=== PATIENT | male | born 1940 | race African-American/Black ===

== ENCOUNTER 2017-05-17 21:22 | Inpatient (IN) | payer MEDICARE, OTHER ==
[~2017-05-17] VITALS: Ht 185.4 cm; Wt 81.6 kg
[2017-05-17] MEDS ORDERED: Haloperidol 5mg/ml Inj ONE (21:34)
--- NOTE | 2017-05-17 21:38 | Emergency Room Report ---
History of Present Illness General Chief Complaint: General Complaint Source: Patient Present Illness HPI 76-year-old male, history of dementia, coming from group home after patient walked outside, try to leave the group home, and fell. History is obtained by EMS as patient is confused, has dementia baseline. States that he fell, there was reportedly normal LOC. Patient has been extremely agitated, trying to get out of the stretcher. Not cooperative Allergies: Coded Allergies: No Known Allergies (Unverified , 05/17/17) Patient History Past Medical History: see triage record Past Surgical History: unable to obtain Pertinent Family History: unable to obtain Reviewed Nursing Documentation: PMH: Agreed, PSxH: Agreed Review of Systems All Other Systems: limited - dementia/not cooperative Physical Exam Vital Signs Date Time Temp Pulse Resp B/P (MAP) Pulse Ox O2 Delivery O2 Flow Rate FiO2 05/17/17 21:13 98 22 19/110 98 Room Air Sp02 EP Interpretation: reviewed, normal General Appearance: other - elderly male, agitated, yelling "[facility]" several times Head: normocephalic, atraumatic Eyes: bilateral eye normal inspection, bilateral eye PERRL, bilateral eye EOMI ENT: normal ENT inspection, normal pharynx, normal voice, moist mucus membranes Neck: normal inspection, full range of motion, supple Respiratory: normal inspection, lungs clear, normal breath sounds, no respiratory distress, no retraction, no wheezing, chest symmetrical Cardiovascular #1: normal inspection, regular rate, rhythm, normal capillary refill Cardiovascular #2: 2+ radial (R), 2+ radial (L) Gastrointestinal: normal inspection, non tender, soft, non-distended, no guarding Musculoskeletal: other - full range of motion all ext Neurologic: other - agitated, good muscle tone, not oriented, saying same phrases, not ff commands Psychiatric: other - dementia, agitated Skin: normal inspection, normal color, no rash, warm/dry, well hydrated, normal turgor Medical Decision Making Diagnostic Impression: Primary Impression: Unsteady gait Additional Impression: Altered mental status ER Course 76-year-old male, altered, and fell, not able to ambulate on his own DDX: Likely advanced dementia, not safe to ambulate on his own Rule out hypovolemic/dehydration vs. cardiac vs. metabolic (hypoglycemia, hypoxia) Infectious, UTI/pneumonia Patient fell, rule out intracranial bleed Plan: bgm, cbc, bmp, ekg, cxr CT head ER course: Patient extremely agitated, trying to get out of the stretcher, danger to himself, sedated with Haldol CT head appears neg Disposition: Patient requires admission D/W hospitalist Dr Alexander Please note that this Emergency Department Report was dictated using [employer] instructor technology software, occasionally this can lead to erroneous entry secondary to interpretation by the dictation equipment EKG Diagnostic Results EP Interpretation: Yes Rate: normal Rhythm: NSR ST Segments: No acute changes, +PACS ASA given to patient: No Rhythm Strip EP Interpretation: Yes Rate: 80 Rhythm: NSR, no PVCs, no ectopy Chest X-ray CXR: Ordered: Yes 1 view Indication: Altered mental status EP interpretation: Yes Interpretation: cardiomegaly w/ mild congestion Impression: cardiomegaly Electronically signed by Joshua Juárez MD Laboratory Tests Test 05/17/17 22:14 05/17/17 22:45 05/17/17 23:51 05/18/17 00:07 White Blood Count 6.2 K/UL (4.8-10.8) Red Blood Count 4.75 M/UL (4.70-6.10) Hemoglobin 14.3 G/DL (14.2-18.0) Hematocrit 46.3 % (42.0-52.0) Mean Corpuscular Volume 97 FL (80-99) Mean Corpuscular Hemoglobin 30.1 PG (27.0-31.0) Mean Corpuscular Hemoglobin Concent 30.9 G/DL (32.0-36.0) L Red Cell Distribution Width 13.3 % (11.6-14.8) Platelet Count 243 K/UL (150-450) Mean Platelet Volume 8.1 FL (6.5-10.1) Neutrophils (%) (Auto) 57.7 % (45.0-75.0) Lymphocytes (%) (Auto) 26.8 % (20.0-45.0) Monocytes (%) (Auto) 11.3 % (1.0-10.0) H Eosinophils (%) (Auto) 2.9 % (0.0-3.0) Basophils (%) (Auto) 1.4 % (0.0-2.0) Prothrombin Time 10.8 SEC (9.30-11.50) Prothrombin Time INR 1.0 (0.9-1.1) PTT 25 SEC (23-33) Sodium Level 139 MMOL/L (136-145) Potassium Level 4.3 MMOL/L (3.5-5.1) Chloride Level 103 MMOL/L (98-107) Carbon Dioxide Level 23 MMOL/L (21-32) Anion Gap 13 mmol/L (5-15) Blood Urea Nitrogen 19 mg/dL (7-18) H Creatinine 1.8 MG/DL (0.55-1.30) H Estimate Glomerular Filtration Rate mL/min (>60) Glucose Level 148 MG/DL (74-106) H Calcium Level 8.4 MG/DL (8.5-10.1) L Total Bilirubin 0.5 MG/DL (0.2-1.0) Aspartate Amino Transferase (AST) 30 U/L (15-37) Alanine Aminotransferase (ALT) 37 U/L (12-78) Alkaline Phosphatase 104 U/L (46-116) Total Creatine Kinase 500 U/L (26-308) H Troponin I 0.008 ng/mL (0.000-0.056) Pro-B-Type Natriuretic Peptide 454 pg/mL (0-125) H Total Protein 8.1 G/DL (6.4-8.2) Albumin 3.9 G/DL (3.4-5.0) Globulin 4.2 g/dL Albumin/Globulin Ratio 0.9 (1.0-2.7) L Lactic Acid Level 2.10 mmol/L (0.66-2.22) 1.50 mmol/L (0.66-2.22) Urine Color Pale yellow Urine Appearance Clear Urine pH 7 (4.5-8.0) Urine Specific [place] 1.005 (1.005-1.035) Urine Protein Negative (NEGATIVE) Urine Glucose (UA) Negative (NEGATIVE) Urine Ketones Negative (NEGATIVE) Urine Occult Blood Negative (NEGATIVE) Urine Nitrite Negative (NEGATIVE) Urine Bilirubin Negative (NEGATIVE) Urine Urobilinogen Normal MG/DL (0.0-1.0) Urine Leukocyte Esterase Negative (NEGATIVE) CT/MRI/US Diagnostic Results CT/MRI/US Diagnostic Results : Imaging Test Ordered: CT Head Last Vital Signs Date Time Temp Pulse Resp B/P (MAP) Pulse Ox O2 Delivery O2 Flow Rate FiO2 05/17/17 21:13 98 22 19/110 98 Room Air Disposition: ADMITTED INPATIENT Condition: Joshua Collins M.D. May 17, 2017 21:38
[2017-05-17] MEDS ORDERED: Haloperidol 5mg/ml Inj IM ONE (21:45)
[2017-05-17] MEDS ORDERED: LORazepam Inj 2mg/ml 1ml IV ONE (22:00)
[2017-05-17 22:43] LABS: BASOPHILS % (AUTO) 1.4 % (0.0-2.0); EOSINOPHILS % (AUTO) 2.9 % (0.0-3.0); HEMATOCRIT 46.3 % (42.0-52.0); HEMOGLOBIN 14.3 G/DL (14.2-18.0); LYMPHOCYTES % (AUTO) 26.8 % (20.0-45.0); MEAN CORPUSCULAR VOLUME 97 FL (80-99); MONOCYTES % (AUTO) 11.3 % (1.0-10.0); NEUTROPHILS % (AUTO) 57.7 % (45.0-75.0); PLATELET COUNT 243 K/UL (150-450); RED BLOOD COUNT 4.75 M/UL (4.70-6.10); RED CELL DISTRIBUTION WIDTH 13.3 % (11.6-14.8); WHITE BLOOD COUNT 6.2 K/UL (4.8-10.8)
[2017-05-17 22:54] LABS: ANION GAP 13 mmol/L (5-15); BLOOD UREA NITROGEN 19 mg/dL (7-18); CALCIUM 8.4 MG/DL (8.5-10.1); CARBON DIOXIDE 23 MMOL/L (21-32); CHLORIDE 103 MMOL/L (98-107); CREATININE 1.8 MG/DL (0.55-1.30); POTASSIUM 4.3 MMOL/L (3.5-5.1); SODIUM 139 MMOL/L (136-145)
[2017-05-17] MEDS ORDERED: Zolpidem 5mg tab ORAL PRN (23:00)
[2017-05-17] MEDS ORDERED: Albuterol ud Inhalation HHN PRN (23:00)
[2017-05-17 23:05] LABS: ALANINE AMINOTRANSFERASE 37 U/L (12-78); ALBUMIN 3.9 G/DL (3.4-5.0); ALBUMIN/GLOBULIN RATIO 0.9 (1.0-2.7); ALKALINE PHOSPHATASE 104 U/L (46-116); ASPARTATE AMINO TRANSFERASE 30 U/L (15-37); BILIRUBIN,TOTAL 0.5 MG/DL (0.2-1.0); CREATINE KINASE 500 U/L (26-308)
[2017-05-17 23:12] VITALS: BP 111/60
[2017-05-18] MEDS ORDERED: SULFAMETHOXAZO480 ML ORAL (00:27)
[2017-05-18] MEDS ORDERED: HYDROCHLOROTH12.5 M2 ORAL (00:27)
[2017-05-18] MEDS ORDERED: ASPIR 8181 MG ORAL (00:27)
[2017-05-18] MEDS ORDERED: PROTONIX40 MG ORAL (00:27)
[2017-05-18] MEDS ORDERED: FERROUS GLUCON324 M1 PO (00:27)
[2017-05-18] MEDS ORDERED: DOCUSATE SODIU100 MG ORAL (00:27)
[2017-05-18] MEDS ORDERED: ACETAMINOPHEN325 M1 ORAL (00:27)
[2017-05-18] MEDS ORDERED: INDERAL LA60 MG ORAL (00:27)
[2017-05-18 00:48] LABS: BILIRUBIN, URINE NEGATIVE (NEGATIVE); COLOR,URINE PALE YELLOW; GLUCOSE, URINE (UA) NEGATIVE (NEGATIVE); KETONES,URINE NEGATIVE (NEGATIVE); NITRITE,URINE NEGATIVE (NEGATIVE); PH,URINE 7 (4.5-8.0); PROTEIN,URINE NEGATIVE (NEGATIVE); UROBILINOGEN,URINE NORMAL MG/DL (0.0-1.0)
[2017-05-18 00:51] LABS: APPEARANCE,URINE CLEAR; LEUKOCYTE ESTERASE ,URINE NEGATIVE (NEGATIVE)
[2017-05-18] MEDS: NS w/KCl 20mEq 1,000 ML IV SCH ×3 (02:40→16:14)
[2017-05-18 04:00] VITALS: BP 152/75
[2017-05-18 08:00] VITALS: BP 149/91
--- NOTE | 2017-05-18 09:51 | Diagnostic Imaging Report ---
Indication: Altered mental status Technique: Contiguous 5 mm thick transaxial imaging of the head obtained in a Siemens Sensation [address] scanner. Soft tissue and bone windows generated. Automatic Exposure Control was utilized. Total Dose length Product (DLP): 1326.[address] Dose Index Volume (CTDIvol): 70.38 mGy Comparison: none Findings: There is mild prominence of the ventricles, basal cisterns, and cerebral sulci consistent with atrophy. Mild, nonspecific, white matter hypoattenuation is noted throughout the brain consistent with chronic small vessel disease. There is no midline shift, edema, acute hemorrhage, mass effect, or abnormal extra-axial fluid collections. Bones and extra osseous soft tissues are unremarkable. Impression: No acute intracranial bleed, mass effect or edema. Mild atrophy of the brain. Nonspecific white matter hypoattenuation probably due to chronic small vessel disease. The CT scanner at [facility] is accredited by the [employer] and the scans are performed using dose optimization techniques as appropriate to a performed exam including Automatic Exposure control.
--- NOTE | 2017-05-18 10:11 | Consultation ---
History of Present Illness General Date patient seen: May 18, 2017 Time patient seen: 10:24 Chief Complaint: General Complaint Present Illness HPI 76 y/o M with hx of dementia, [facility] is brought to ED on 05/17 after a mechanical fall when he was [facility]. Lately he has been more agitated and not cooperative. Patient afebrile, no leukocytosis. u/a neg Allergies: Coded Allergies: No Known Allergies (Unverified , 05/17/17) Medication History Scheduled Aspirin* (Aspir 81*), 81 MG ORAL DAILY, (Reported) Docusate Sodium* (Docusate Sodium*), 100 MG ORAL DAILY, (Reported) Hydrochlorothiazide* (Hydrochlorothiazide*), 12.5 MG ORAL DAILY, (Reported) Pantoprazole* (Protonix*), 40 MG ORAL DAILY, (Reported) Propranolol Hcl* (Inderal La*), 60 MG ORAL DAILY, (Reported) Sulfamethoxazole/Trimethoprim (Sulfamethoxazole-Tmp Susp), 10 ML ORAL TWICE A DAY, (Reported) Scheduled PRN Acetaminophen* (Acetaminophen 325MG Tablet*), 325 MG ORAL Q4H PRN for Fever/ Headache/Mild Pain, (Reported) Miscellaneous Medications Ferrous Gluconate (Ferrous Gluconate), 324 MG PO, (Reported) Patient History Healthcare decision maker Resuscitation status Full Code Advanced Directive on File Patient History Narrative Pmx: as above Shx: reviewed Fhx: non contributory Review of Systems ROS Narrative as per HPI, otherwise negative Physical Exam Physical Exam Narrative General Appearance: other - elderly male, agitated, yelling "[facility]" several times HEENT: normocephalic, atraumatic, bilateral eye normal inspection, bilateral eye PERRL, bilateral eye EOMI, normal ENT inspection, normal pharynx, normal voice, moist mucus membranes Neck: normal inspection, full range of motion, supple Respiratory: normal inspection, lungs clear, normal breath sounds, no respiratory distress, no retraction, no wheezing, chest symmetrical Cardiovascular normal inspection, regular rate, rhythm, normal capillary refill Gastrointestinal: normal inspection, non tender, soft, non-distended, no guarding Musculoskeletal: other - full range of motion all ext Neurologic: other - agitated, good muscle tone, not oriented, saying same phrases, not ff commands Psychiatric: other - dementia, agitated Skin: normal inspection, normal color, no rash, warm/dry, well hydrated, normal turgor Last 24 Hour Vital Signs Date Time Temp Pulse Resp B/P (MAP) Pulse Ox O2 Delivery O2 Flow Rate FiO2 05/18/17 04:00 96.4 64 20 152/75 97 Room Air 05/18/17 00:33 97.9 22 111/60 98 Room Air 05/17/17 23:12 97.9 111/60 Room Air 05/17/17 22:23 22 98 Room Air 05/17/17 21:13 98 22 19/110 98 Room Air Intake and Output 05/17/17 05/18/17 19:00 07:00 Intake Total 340 ml Output Total 650 ml Balance -310 ml Intake Oral 0 ml IV Total 340 ml Output Urine Total 650 ml Laboratory Tests Test 05/17/17 22:14 05/17/17 22:45 05/17/17 23:51 05/18/17 00:07 White Blood Count 6.2 K/UL (4.8-10.8) Red Blood Count 4.75 M/UL (4.70-6.10) Hemoglobin 14.3 G/DL (14.2-18.0) Hematocrit 46.3 % (42.0-52.0) Mean Corpuscular Volume 97 FL (80-99) Mean Corpuscular Hemoglobin 30.1 PG (27.0-31.0) Mean Corpuscular Hemoglobin Concent 30.9 G/DL (32.0-36.0) L Red Cell Distribution Width 13.3 % (11.6-14.8) Platelet Count 243 K/UL (150-450) Mean Platelet Volume 8.1 FL (6.5-10.1) Neutrophils (%) (Auto) 57.7 % (45.0-75.0) Lymphocytes (%) (Auto) 26.8 % (20.0-45.0) Monocytes (%) (Auto) 11.3 % (1.0-10.0) H Eosinophils (%) (Auto) 2.9 % (0.0-3.0) Basophils (%) (Auto) 1.4 % (0.0-2.0) Prothrombin Time 10.8 SEC (9.30-11.50) Prothromb Time International Ratio 1.0 (0.9-1.1) Activated Partial Thromboplast Time 25 SEC (23-33) Sodium Level 139 MMOL/L (136-145) Potassium Level 4.3 MMOL/L (3.5-5.1) Chloride Level 103 MMOL/L (98-107) Carbon Dioxide Level 23 MMOL/L (21-32) Anion Gap 13 mmol/L (5-15) Blood Urea Nitrogen 19 mg/dL (7-18) H Creatinine 1.8 MG/DL (0.55-1.30) H Estimat Glomerular Filtration Rate mL/min (>60) Glucose Level 148 MG/DL (74-106) H Calcium Level 8.4 MG/DL (8.5-10.1) L Total Bilirubin 0.5 MG/DL (0.2-1.0) Aspartate Amino Transf (AST/SGOT) 30 U/L (15-37) Alanine Aminotransferase (ALT/SGPT) 37 U/L (12-78) Alkaline Phosphatase 104 U/L (46-116) Total Creatine Kinase 500 U/L (26-308) H Troponin I 0.008 ng/mL (0.000-0.056) Pro-B-Type Natriuretic Peptide 454 pg/mL (0-125) H Total Protein 8.1 G/DL (6.4-8.2) Albumin 3.9 G/DL (3.4-5.0) Globulin 4.2 g/dL Albumin/Globulin Ratio 0.9 (1.0-2.7) L Lactic Acid Level 2.10 mmol/L (0.66-2.22) 1.50 mmol/L (0.66-2.22) Urine Color Pale yellow Urine Appearance Clear Urine pH 7 (4.5-8.0) Urine Specific [place] 1.005 (1.005-1.035) Urine Protein Negative (NEGATIVE) Urine Glucose (UA) Negative (NEGATIVE) Urine Ketones Negative (NEGATIVE) Urine Occult Blood Negative (NEGATIVE) Urine Nitrite Negative (NEGATIVE) Urine Bilirubin Negative (NEGATIVE) Urine Urobilinogen Normal MG/DL (0.0-1.0) Urine Leukocyte Esterase Negative (NEGATIVE) Height (Feet): 6 Height (Inches): 1.00 Weight (Pounds): 180 Medications Current Medications Medications (Trade) Dose Ordered Sig/Chely Route PRN Reason Start Time Stop Time Status Last Admin Dose Admin Acetaminophen (Tylenol) 650 mg Q4H PRN ORAL Mild Pain (Pain Scale 1-3) 05/17/17 23:00 06/16/17 22:59 Albuterol Sulfate (Proventil) 2.5 mg EVERY 6 HOURS PRN HHN Shortness of Breath 05/17/17 23:00 05/22/17 22:59 Dextrose (Dextrose 50%) STAT PRN IV Hypoglycemia 05/17/17 23:00 06/16/17 22:59 Docusate Sodium (Colace) 100 mg EVERY 12 HOURS ORAL 05/18/17 09:00 06/17/17 08:59 Enoxaparin Sodium (Lovenox) 40 mg Q24H SUBQ 05/18/17 09:00 06/17/17 08:59 Lorazepam (Ativan) 1 mg Q4H PRN ORAL For Anxiety 05/17/17 23:00 05/24/17 22:59 Sodium Chloride 1,000 ml @ 100 mls/hr Q10H IV 05/17/17 23:55 06/16/17 23:54 05/18/17 02:40 Zolpidem Tartrate (Ambien) 5 mg HSPRN PRN ORAL Insomnia 05/17/17 23:00 05/24/17 22:59 Assessment/Plan Assessment/Plan Abx: None Assessment: Mechanical fall -CT head: No acute intracranial bleed, mass effect or edema. Mild atrophy of the brain.Nonspecific white matter hypoattenuation probably due to chronic small vessel disease. Afebrile, no leukocytosis -u/a neg Elevated BUN/Cr- likely dehydration Agitation on baseline dementia Plan: -Continue to monitor off abx as no evidence of infectious process -f/u cx -Monitor CBC/CMP, temperatures -aspiration precautions Thank you for this consultation. Discussed with Odette Rich M.D. May 18, 2017 10:11
[2017-05-18] MEDS: Docusate 100mg cap ORAL SCH ×2 (11:06→20:44)
[2017-05-18] MEDS: Enoxaparin 40mg Inj SUBQ SCH (11:07)
--- NOTE | 2017-05-18 11:15 | Diagnostic Imaging Report ---
Indication: Dyspnea Comparison: None A single view chest radiograph was obtained. Findings: Lung volumes are low. Heart is enlarged. Aorta is moderately enlarged. Bones are osteopenic. No infiltrate identified. IMPRESSION: No acute disease
[2017-05-18 16:27] VITALS: BP 139/86
[2017-05-18] MEDS: NovoLOG Insulin Flexpen SUBQ SCH ×2 (16:30→20:46)
--- NOTE | 2017-05-18 17:17 | Consultation ---
Consult Note Consult Note JOB ID: [id number] Jabier Goldman May 18, 2017 17:17
[2017-05-18 20:00] VITALS: BP 138/95
[2017-05-18] MEDS ORDERED: Flu Vaccine Quadrivalent 0.5ml IM ONE (21:00)
--- NOTE | 2017-05-18 23:11 | Consultation ---
History of Present Illness General Date patient seen: May 18, 2017 Chief Complaint: General Complaint Present Illness HPI 76 y/o M with hx of dementia, [facility] resident is brought to ED on 05/17 after a mechanical fall when he was trying to leave correction. the pt was calm during my eval, earlier was agitated and not following direction, the pt stated that he was taking risperdal and is under a care of a psychiatrist. Allergies: Coded Allergies: No Known Allergies (Unverified , 05/17/17) Medication History Scheduled Aspirin* (Aspir 81*), 81 MG ORAL DAILY, (Reported) Docusate Sodium* (Docusate Sodium*), 100 MG ORAL DAILY, (Reported) Hydrochlorothiazide* (Hydrochlorothiazide*), 12.5 MG ORAL DAILY, (Reported) Pantoprazole* (Protonix*), 40 MG ORAL DAILY, (Reported) Propranolol Hcl* (Inderal La*), 60 MG ORAL DAILY, (Reported) Sulfamethoxazole/Trimethoprim (Sulfamethoxazole-Tmp Susp), 10 ML ORAL TWICE A DAY, (Reported) Scheduled PRN Acetaminophen* (Acetaminophen 325MG Tablet*), 325 MG ORAL Q4H PRN for Fever/ Headache/Mild Pain, (Reported) Miscellaneous Medications Ferrous Gluconate (Ferrous Gluconate), 324 MG PO, (Reported) Patient History History Provided By: Patient, Medical Record, PMD Healthcare decision maker Resuscitation status Full Code Advanced Directive on File Past Medical/Surgical History Past Medical/Surgical History: (1) Acute confusion (2) Altered mental status (3) Unsteady gait Review of Systems Psychiatric: Reports: prior hx, anxiety, depressed feelings, emotional problems Physical Exam General Appearance: no apparent distress, alert Neurologic: alert, oriented x 3, responsive, depressed affect Last 24 Hour Vital Signs Date Time Temp Pulse Resp B/P (MAP) Pulse Ox O2 Delivery O2 Flow Rate FiO2 05/18/17 20:00 Room Air 05/18/17 20:00 97.9 75 18 138/95 100 Room Air 05/18/17 16:27 97.7 82 18 139/86 98 Room Air 05/18/17 08:00 97.7 71 18 149/91 98 Room Air 05/18/17 04:00 96.4 64 20 152/75 97 Room Air 05/18/17 00:33 97.9 22 111/60 98 Room Air 05/17/17 23:12 97.9 111/60 Room Air Intake and Output 05/17/17 05/18/17 19:00 07:00 Intake Total 340 ml Output Total 650 ml Balance -310 ml Intake Oral 0 ml IV Total 340 ml Output Urine Total 650 ml Laboratory Tests Test 05/17/17 23:51 05/18/17 00:07 Lactic Acid Level 1.50 mmol/L (0.66-2.22) Urine Color Pale yellow Urine Appearance Clear Urine pH 7 (4.5-8.0) Urine Specific [place] 1.005 (1.005-1.035) Urine Protein Negative (NEGATIVE) Urine Glucose (UA) Negative (NEGATIVE) Urine Ketones Negative (NEGATIVE) Urine Occult Blood Negative (NEGATIVE) Urine Nitrite Negative (NEGATIVE) Urine Bilirubin Negative (NEGATIVE) Urine Urobilinogen Normal MG/DL (0.0-1.0) Urine Leukocyte Esterase Negative (NEGATIVE) Height (Feet): 6 Height (Inches): 1.00 Weight (Pounds): 180 Medications Current Medications Medications (Trade) Dose Ordered Sig/Chely Route PRN Reason Start Time Stop Time Status Last Admin Dose Admin Acetaminophen (Tylenol) 650 mg Q4H PRN ORAL Mild Pain (Pain Scale 1-3) 05/17/17 23:00 06/16/17 22:59 Albuterol Sulfate (Proventil) 2.5 mg EVERY 6 HOURS PRN HHN Shortness of Breath 05/17/17 23:00 05/22/17 22:59 Dextrose (Dextrose 50%) STAT PRN IV Hypoglycemia 05/18/17 16:15 06/17/17 16:14 Docusate Sodium (Colace) 100 mg EVERY 12 HOURS ORAL 05/18/17 09:00 06/17/17 08:59 05/18/17 20:44 Enoxaparin Sodium (Lovenox) 40 mg Q24H SUBQ 05/18/17 09:00 06/17/17 08:59 05/18/17 11:07 Insulin Aspart (NovoLOG) BEFORE MEALS AND HS SUBQ 05/18/17 16:30 06/17/17 16:29 05/18/17 20:46 Lorazepam (Ativan) 1 mg Q4H PRN ORAL For Anxiety 05/17/17 23:00 1/4/18 22:59 Sodium Chloride 1,000 ml @ 100 mls/hr Q10H IV 05/17/17 23:55 06/16/17 23:54 05/18/17 16:14 Zolpidem Tartrate (Ambien) 5 mg HSPRN PRN ORAL Insomnia 05/17/17 23:00 05/24/17 22:59 Assessment/Plan Status: stable Assessment/Plan mdd agitation -seroquel -Yancy Bernard M.D. May 18, 2017 23:11
[2017-05-19] VITALS: BP 147/96
--- NOTE | 2017-05-19 01:00 | History and Physical Report ---
DATE OF ADMISSION: 05/17/2017 REASON FOR ADMISSION: Mechanical fall, weakness, and agitation. HISTORY OF PRESENT ILLNESS: The patient is a pleasant 76-year-old male with past medical history significant for dementia, who is a senior living resident, coming into the ER on 05/17/2017 after a mechanical fall senior living where he has been more agitated and has not been cooperative. The patient has been afebrile without any leukocytosis. UA is negative. Internal Medicine History and Physical had been obtained from the primary physician. ID Service has been consulted and currently at this time recommending to follow up with cultures. PAST MEDICAL HISTORY: As noted above. ALLERGIES: No known drug allergies. MEDICATIONS: Aspirin, Colace, hydrochlorothiazide, Protonix, propranolol. SOCIAL HISTORY: No alcohol, tobacco, or illicit drug use. FAMILY HISTORY: Noncontributory. REVIEW OF SYSTEMS: A 12-point review of systems is otherwise negative. PHYSICAL EXAMINATION: GENERAL: No acute distress. VITAL SIGNS: Reviewed. PULMONARY: Decreased breath sounds. CARDIOVASCULAR: Regular rate. No S3 or S4. ABDOMEN: Soft, nontender, and nondistended. EXTREMITIES: A 1+ edema. LABORATORY DATA: WBC 6.3, platelet count 343,000, hemoglobin 14.3. ASSESSMENT AND RECOMMENDATIONS: 1. Mechanical fall. CAT scan of the brain was negative. No evidence of bleed is noted at this time. 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 2. Elevated BUN and creatinine and dehydration. 3. Afebrile. No leukocytosis . 4. Agitation at baseline. Continue to closely monitor. 5. I appreciate php consultant care with ID Service as well as Nephrology. Jabier Goldman M.D. DR: Devin JOB#: [id number] CC:
[2017-05-19] MEDS: NS w/KCl 20mEq 1,000 ML IV SCH ×2 (02:15→10:25)
[2017-05-19 04:00] VITALS: BP 134/92
[2017-05-19] MEDS: NovoLOG Insulin Flexpen SUBQ SCH ×4 (05:53→20:36)
[2017-05-19 08:00] VITALS: BP 145/88
[2017-05-19] MEDS: Docusate 100mg cap ORAL SCH ×3 (08:33→17:51)
[2017-05-19] MEDS: Enoxaparin 40mg Inj SUBQ SCH (08:36)
--- NOTE | 2017-05-19 09:33 | Infectious Diseases Prog Note ---
Assessment/Plan Assessment/Plan Abx: None Assessment: Mechanical fall -CT head: No acute intracranial bleed, mass effect or edema. Mild atrophy of the brain.Nonspecific white matter hypoattenuation probably due to chronic small vessel disease. Afebrile, no leukocytosis -u/a neg, CXR no acute disease -BCx NTD Elevated BUN/Cr- likely dehydration Agitation on baseline dementia Plan: -Continue to monitor off abx as no evidence of infectious process -f/u cx -Monitor CBC/CMP, temperatures -aspiration precautions Thank you for this consultation. Discussed with RN. Subjective Allergies: Coded Allergies: No Known Allergies (Unverified , 05/17/17) Subjective afebrile no leukocytosis off abx Objective Vital Signs Last 24 Hour Vital Signs Date Time Temp Pulse Resp B/P (MAP) Pulse Ox O2 Delivery O2 Flow Rate FiO2 05/19/17 08:00 97.2 80 20 145/88 97 Room Air 05/19/17 07:56 83 18 Room Air 21 05/19/17 04:00 98.0 77 19 134/92 99 Room Air 05/19/17 01:56 98.2 05/19/17 00:39 Room Air 05/19/17 00:00 98.2 78 20 147/96 99 Room Air 05/18/17 20:00 Room Air 05/18/17 20:00 97.9 75 18 138/95 100 Room Air 05/18/17 16:27 97.7 82 18 139/86 98 Room Air Height (Feet): 6 Height (Inches): 1.00 Weight (Pounds): 180 Objective General Appearance: other - elderly male, agitated, yelling "[facility]" several times HEENT: normocephalic, atraumatic, bilateral eye normal inspection, bilateral eye PERRL, bilateral eye EOMI, normal ENT inspection, normal pharynx, normal voice, moist mucus membranes Neck: normal inspection, full range of motion, supple Respiratory: normal inspection, lungs clear, normal breath sounds, no respiratory distress, no retraction, no wheezing, chest symmetrical Cardiovascular normal inspection, regular rate, rhythm, normal capillary refill Gastrointestinal: normal inspection, non tender, soft, non-distended, no guarding Musculoskeletal: other - full range of motion all ext Neurologic: other - agitated, good muscle tone, not oriented, saying same phrases, not ff commands Psychiatric: other - dementia, agitated Skin: normal inspection, normal color, no rash, warm/dry, well hydrated, normal turgor Microbiology Date/Time Source Procedure Growth Status 05/17/17 22:48 Blood Blood Culture - Preliminary NO GROWTH AFTER 24 HOURS Resulted 05/17/17 22:45 Blood Blood Culture - Preliminary NO GROWTH AFTER 24 HOURS Resulted Current Medications Medications (Trade) Dose Ordered Sig/Chely Route PRN Reason Start Time Stop Time Status Last Admin Dose Admin Acetaminophen (Tylenol) 650 mg Q4H PRN ORAL Mild Pain (Pain Scale 1-3) 05/17/17 23:00 06/16/17 22:59 05/19/17 00:57 Albuterol Sulfate (Proventil) 2.5 mg EVERY 6 HOURS PRN HHN Shortness of Breath 05/17/17 23:00 05/22/17 22:59 Dextrose (Dextrose 50%) STAT PRN IV Hypoglycemia 05/18/17 16:15 06/17/17 16:14 Docusate Sodium (Colace) 100 mg EVERY 12 HOURS ORAL 05/18/17 09:00 06/17/17 08:59 05/19/17 08:33 Enoxaparin Sodium (Lovenox) 40 mg Q24H SUBQ 05/18/17 09:00 06/17/17 08:59 05/18/17 11:07 Insulin Aspart (NovoLOG) BEFORE MEALS AND HS SUBQ 05/18/17 16:30 06/17/17 16:29 05/18/17 20:46 Lorazepam (Ativan) 1 mg Q4H PRN ORAL For Anxiety 05/17/17 23:00 05/24/17 22:59 Quetiapine Fumarate (SEROquel) 50 mg BEDTIME ORAL 05/19/17 21:00 06/18/17 20:59 Sodium Chloride 1,000 ml @ 100 mls/hr Q10H IV 05/17/17 23:55 06/16/17 23:54 05/19/17 02:15 Zolpidem Tartrate (Ambien) 5 mg HSPRN PRN ORAL Insomnia 05/17/17 23:00 05/24/17 22:59 Odette Robb M.D. May 19, 2017 09:33
--- NOTE | 2017-05-19 11:36 | Consultation ---
Consult Note Consult Note asked to eval for high Cr 76-year-old male, history of dementia, coming from long-term after patient walked outside, try to leave the long-term, and fell. History is obtained by EMS as patient is confused, has dementia baseline. States that he fell, there was reportedly normal LOC. Patient has been extremely agitated, trying to get out of the stretcher. Not cooperative admitted for unsteady gait and encephalopathy interviewed examined data reviewed meds; was on Bactrim and HCTZ . Assessment/Plan Renal failure ? - Prerenal due to diuretics- - Renal due to meds ( bactrim) Unsteady gait Encephalopathy Plan: change IV fluid- add flomax- Gastric support Monitor renal parameters Urine studies avoid nephrotoxics ERNST MANZANO May 19, 2017 11:36
[2017-05-19 11:57] VITALS: BP 150/86
[2017-05-19] MEDS: Tamsulosin 0.4mg cap ORAL SCH ×2 (12:23→17:51)
[2017-05-19 16:00] VITALS: BP 144/91
--- NOTE | 2017-05-19 19:42 | General Progress Note ---
Assessment/Plan Assessment/Plan ASSESSMENT AND RECOMMENDATIONS: 1. Mechanical fall. CAT scan of the brain was negative. No evidence of bleed is noted at this time. 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 --> no evidence for infection either, appreciate id recs --> monitor mental status, however has baseline dementia 2. Elevated BUN and creatinine and dehydration. --> improved, potentially med related ==> appreciate renal recs 3. Afebrile. No leukocytosis 4. Agitation at baseline. Continue to closely monitor. Subjective Constitutional: Denies: no symptoms, chills, diaphoresis, fever, malaise, weakness, other HEENT: Denies: no symptoms, eye pain, blurred vision, tearing, double vision, ear pain, ear discharge, nose pain, nose congestion, throat pain, throat swelling, mouth pain, mouth swelling, other Cardiovascular: Denies: no symptoms, chest pain, edema, irregular heart rate, lightheadedness, palpitations, syncope, other Respiratory: Denies: no symptoms, cough, orthopnea, shortness of breath, SOB with excertion, SOB at rest, sputum, stridor, wheezing, other Gastrointestinal/Abdominal: Denies: no symptoms, abdomen distended, abdominal pain, black stools, tarry stools, blood in stool, constipated, diarrhea, difficulty swallowing, nausea, poor appetite, poor fluid intake, rectal bleeding , vomiting, other Genitourinary: Denies: no symptoms, burning, discharge, frequency, flank pain, hematuria, incontinence, pain, urgency, other 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: Denies: no symptoms, anxiety, depressed, emotional problems, headache, numbness, paresthesia, pre-existing deficit, seizure, tingling, tremors, weakness, other Endocrine: Denies: no symptoms, excessive sweating, flushing, intolerance to cold, intolerance to heat, increased hunger, increased thirst, increased urine, unexplained weight gain, unexplained weight loss, other Allergies: Coded Allergies: No Known Allergies (Unverified , 05/17/17) Subjective nad Objective Last 24 Hour Vital Signs Date Time Temp Pulse Resp B/P (MAP) Pulse Ox O2 Delivery O2 Flow Rate FiO2 05/19/17 16:00 97.9 18 144/91 99 Room Air 05/19/17 11:57 97.9 18 150/86 100 Room Air 05/19/17 08:00 97.2 80 20 145/88 97 Room Air 05/19/17 07:56 83 18 Room Air 21 05/19/17 04:00 98.0 77 19 134/92 99 Room Air 05/19/17 01:56 98.2 05/19/17 00:39 Room Air 05/19/17 00:00 98.2 78 20 147/96 99 Room Air 05/18/17 20:00 Room Air 05/18/17 20:00 97.9 75 18 138/95 100 Room Air Intake and Output 05/18/17 05/19/17 19:00 07:00 Intake Total 1250 ml 1100 ml Output Total 900 ml Balance 350 ml 1100 ml Intake Oral 350 ml IV Total 900 ml 1100 ml Output Urine Total 900 ml # Voids 5 # Bowel Movements 1 Height (Feet): 6 Height (Inches): 1.00 Weight (Pounds): 180 General Appearance: no apparent distress EENT: TMs normal Neck: supple Cardiovascular: regular rhythm Respiratory/Chest: normal breath sounds Abdomen: non tender Extremities: non-tender Edema: 1+ Leg (L), 1+ Leg (R) Edema: mild edema Neurologic: alert Skin: warm/dry Jabier Goldman May 19, 2017 19:42
[2017-05-19 20:00] VITALS: BP 150/87
[2017-05-20] VITALS: BP 147/85
[2017-05-20 04:00] VITALS: BP 151/90
[2017-05-20] MEDS: NovoLOG Insulin Flexpen SUBQ SCH ×4 (06:33→20:20)
[2017-05-20 07:31] LABS: BASOPHILS % (AUTO) 0.9 % (0.0-2.0); EOSINOPHILS % (AUTO) 10.5 % (0.0-3.0); HEMATOCRIT 38.5 % (42.0-52.0); HEMOGLOBIN 13.1 G/DL (14.2-18.0); LYMPHOCYTES % (AUTO) 37.4 % (20.0-45.0); MEAN CORPUSCULAR VOLUME 97 FL (80-99); MONOCYTES % (AUTO) 10.4 % (1.0-10.0); NEUTROPHILS % (AUTO) 40.8 % (45.0-75.0); PLATELET COUNT 221 K/UL (150-450); RED BLOOD COUNT 3.96 M/UL (4.70-6.10); RED CELL DISTRIBUTION WIDTH 13.1 % (11.6-14.8); WHITE BLOOD COUNT 3.5 K/UL (4.8-10.8)
[2017-05-20 07:48] VITALS: BP 156/90
[2017-05-20 08:02] LABS: ALANINE AMINOTRANSFERASE 22 U/L (12-78); ALBUMIN 2.9 G/DL (3.4-5.0); ALBUMIN/GLOBULIN RATIO 0.8 (1.0-2.7); ALKALINE PHOSPHATASE 83 U/L (46-116); ANION GAP 6 mmol/L (5-15); ASPARTATE AMINO TRANSFERASE 20 U/L (15-37); BILIRUBIN,TOTAL 0.5 MG/DL (0.2-1.0); BLOOD UREA NITROGEN 9 mg/dL (7-18); CALCIUM 7.5 MG/DL (8.5-10.1); CARBON DIOXIDE 26 MMOL/L (21-32); CHLORIDE 107 MMOL/L (98-107); CHOLESTEROL 180 MG/DL (< 200); CREATINE KINASE 296 U/L (26-308); GAMMA GLUTAMYL TRANSPEPTIDASE 12 U/L (5-85); HDL CHOLESTEROL 56 MG/DL (40-60); PHOSPHORUS 2.8 MG/DL (2.5-4.9); POTASSIUM 4.2 MMOL/L (3.5-5.1); SODIUM 139 MMOL/L (136-145); TRIGLYCERIDES 58 MG/DL (30-150)
[2017-05-20] MEDS: Tamsulosin 0.4mg cap ORAL SCH ×2 (08:40→17:23)
[2017-05-20] MEDS: Docusate 100mg cap ORAL SCH ×3 (08:40→17:23)
[2017-05-20] MEDS: Enoxaparin 40mg Inj SUBQ SCH (08:42)
[2017-05-20 11:57] VITALS: BP 140/93
[2017-05-20] MEDS: LORazepam 1mg tab ORAL PRN (15:18)
[2017-05-20 16:00] VITALS: BP 149/88
[2017-05-20] MEDS ORDERED: Vancomycin 1.5 GM/D5W 250ML IVPB ONE (17:00)
--- NOTE | 2017-05-20 19:49 | General Progress Note ---
Assessment/Plan Assessment/Plan ASSESSMENT AND RECS: 1. Mechanical fall. CAT scan of the brain was negative. No evidence of bleed is noted at this time. 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 --> no evidence for infection either, appreciate id recs --> monitor mental status, however has baseline dementia 2. Elevated BUN and creatinine and dehydration. --> improved, potentially med related ==> appreciate renal recs 3. Afebrile. No leukocytosis 4. Agitation at baseline. Continue to closely monitor. Subjective Allergies: Coded Allergies: No Known Allergies (Unverified , 05/17/17) All Systems: reviewed and negative except above Subjective nad Objective Last 24 Hour Vital Signs Date Time Temp Pulse Resp B/P (MAP) Pulse Ox O2 Delivery O2 Flow Rate FiO2 05/20/17 16:00 97.7 70 20 149/88 97 Room Air 05/20/17 11:57 98.2 85 20 140/93 98 Room Air 05/20/17 08:54 90 18 Room Air 21 05/20/17 07:48 97.7 95 20 156/90 98 Room Air 05/20/17 04:00 97.3 84 20 151/90 96 Room Air 05/20/17 00:00 97.1 79 18 147/85 98 Room Air 05/19/17 21:11 88 18 Room Air 21 05/19/17 20:00 97.5 71 18 150/87 99 Room Air Intake and Output 05/19/17 05/20/17 19:00 07:00 Intake Total 1520 ml 1270 ml Output Total 1250 ml 1450 ml Balance 270 ml -180 ml Intake Oral 720 ml 720 ml IV Total 800 ml 550 ml Output Urine Total 1250 ml 1450 ml # Bowel Movements 1 1 Laboratory Tests 05/20/17 01:00: Urine Eosinophils None seen 05/20/17 05:25: White Blood Count 3.5L, Red Blood Count 3.96L, Hemoglobin 13.1L, Hematocrit 38.5L, Mean Corpuscular Volume 97, Mean Corpuscular Hemoglobin 33.2H, Mean Corpuscular Hemoglobin Concent 34.1, Red Cell Distribution Width 13.1, Platelet Count 221, Mean Platelet Volume 8.0, Neutrophils (%) (Auto) 40.8L, Lymphocytes ( %) (Auto) 37.4, Monocytes (%) (Auto) 10.4H, Eosinophils (%) (Auto) 10.5H, Basophils (%) (Auto) 0.9, Sodium Level 139, Potassium Level 4.2, Chloride Level 107, Carbon Dioxide Level 26, Anion Gap 6, Blood Urea Nitrogen 9, Creatinine 1.0 , Estimat Glomerular Filtration Rate , Glucose Level 105, Hemoglobin A1c 5.6, Uric Acid 3.9, Calcium Level 7.5L, Phosphorus Level 2.8, Magnesium Level 1.9, Total Bilirubin 0.5, Gamma Glutamyl Transpeptidase 12, Aspartate Amino Transf ( AST/SGOT) 20, Alanine Aminotransferase (ALT/SGPT) 22, Alkaline Phosphatase 83, Total Creatine Kinase 296, Troponin I 0.008, C-Reactive Protein, Quantitative < 0.4, Pro-B-Type Natriuretic Peptide 545H, Total Protein 6.5, Albumin 2.9L, Globulin 3.6, Albumin/Globulin Ratio 0.8L, Triglycerides Level 58, Cholesterol Level 180, LDL Cholesterol 115H, HDL Cholesterol 56, Cholesterol/HDL Ratio 3.2L , Vitamin B12 Level 388, Thyroid Stimulating Hormone (TSH) 3.056 Height (Feet): 6 Height (Inches): 1.00 Weight (Pounds): 180 General Appearance: alert EENT: TMs normal Neck: normal inspection Cardiovascular: regular rhythm Respiratory/Chest: normal breath sounds Abdomen: no mass Genitourinary/Rectal: normal rectal exam Edema: no edema noted Arm (L), no edema noted Arm (R), no edema noted Leg (L), no edema noted Leg (R) Edema: mild edema Neurologic: alert Skin: warm/dry Jabier Goldman May 20, 2017 19:49
[2017-05-20 20:00] VITALS: BP 138/77
[2017-05-21] VITALS: BP 113/69
[2017-05-21 04:00] VITALS: BP 129/88
[2017-05-21] MEDS: Vancomycin 750mg/NS 250ml IVPB SCH ×2 (04:19→17:53)
[2017-05-21] MEDS: NovoLOG Insulin Flexpen SUBQ SCH ×4 (06:15→20:26)
[2017-05-21 08:00] VITALS: BP 142/78
[2017-05-21] MEDS: Enoxaparin 40mg Inj SUBQ SCH (08:19)
[2017-05-21] MEDS: Tamsulosin 0.4mg cap ORAL SCH ×2 (08:19→17:55)
[2017-05-21] MEDS: Docusate 100mg cap ORAL SCH ×3 (08:19→17:53)
--- NOTE | 2017-05-21 09:53 | Infectious Diseases Prog Note ---
Assessment/Plan Assessment/Plan Abx: IV Vanco 05/20- Assessment: Mechanical fall -CT head: No acute intracranial bleed, mass effect or edema. Mild atrophy of the brain.Nonspecific white matter hypoattenuation probably due to chronic small vessel disease. 05/24 CoNS bacteremia- likely contaminant, await repaet Bcx -05/17 05/24, 05/20 Bcx p Afebrile, no leukocytosis -u/a neg, CXR no acute disease Elevated BUN/Cr- likely dehydration- resoled Agitation on baseline dementia Plan: -Continue IV Vancomycin #2 pending repeat BCx- if neg in 24-48hrs will d/c -f/u cx -Monitor CBC/CMP, temperatures -aspiration precautions Thank you for this consultation. Discussed with RN. Subjective Allergies: Coded Allergies: No Known Allergies (Unverified , 05/17/17) Subjective afebrile no leukocytosis 05/24 COns bacteremia, repeat Bcx p Objective Vital Signs Last 24 Hour Vital Signs Date Time Temp Pulse Resp B/P (MAP) Pulse Ox O2 Delivery O2 Flow Rate FiO2 05/21/17 08:00 97.5 81 18 142/78 97 Room Air 05/21/17 06:45 80 18 Room Air 21 05/21/17 04:00 98.1 66 18 129/88 98 Room Air 05/21/17 00:00 98.3 61 18 113/69 100 Room Air 05/20/17 20:20 78 18 Room Air 21 05/20/17 20:00 97.5 67 18 138/77 96 Room Air 05/20/17 16:00 97.7 70 20 149/88 97 Room Air 05/20/17 11:57 98.2 85 20 140/93 98 Room Air Height (Feet): 6 Height (Inches): 1.00 Weight (Pounds): 180 Objective General Appearance: other - elderly male, agitated, yelling "[id number]" several times HEENT: normocephalic, atraumatic, bilateral eye normal inspection, bilateral eye PERRL, bilateral eye EOMI, normal ENT inspection, normal pharynx, normal voice, moist mucus membranes Neck: normal inspection, full range of motion, supple Respiratory: normal inspection, lungs clear, normal breath sounds, no respiratory distress, no retraction, no wheezing, chest symmetrical Cardiovascular normal inspection, regular rate, rhythm, normal capillary refill Gastrointestinal: normal inspection, non tender, soft, non-distended, no guarding Musculoskeletal: other - full range of motion all ext Neurologic: other - agitated, good muscle tone, not oriented, saying same phrases, not ff commands Psychiatric: other - dementia, agitated Skin: normal inspection, normal color, no rash, warm/dry, well hydrated, normal turgor Laboratory Tests Test 05/21/17 01:40 Urine Eosinophils None seen Current Medications Medications (Trade) Dose Ordered Sig/Chely Route PRN Reason Start Time Stop Time Status Last Admin Dose Admin Acetaminophen (Tylenol) 650 mg Q4H PRN ORAL Mild Pain (Pain Scale 1-3) 05/17/17 23:00 06/16/17 22:59 05/19/17 15:35 Albuterol Sulfate (Proventil) 2.5 mg EVERY 6 HOURS PRN HHN Shortness of Breath 05/17/17 23:00 05/22/17 22:59 Dextrose 1,000 ml @ 50 mls/hr Q20H IV 05/19/17 11:45 06/18/17 11:44 05/21/17 04:19 Dextrose (Dextrose 50%) STAT PRN IV Hypoglycemia 05/18/17 16:15 06/17/17 16:14 Docusate Sodium (Colace) 100 mg TID ORAL 05/19/17 13:00 06/17/17 08:59 05/21/17 08:19 Enoxaparin Sodium (Lovenox) 40 mg Q24H SUBQ 05/18/17 09:00 06/17/17 08:59 05/21/17 08:19 Insulin Aspart (NovoLOG) BEFORE MEALS AND HS SUBQ 05/18/17 16:30 06/17/17 16:29 05/20/17 20:20 Lorazepam (Ativan) 1 mg Q4H PRN ORAL For Anxiety 05/17/17 23:00 05/24/17 22:59 05/20/17 15:18 Pantoprazole (Protonix) 40 mg DAILY ORAL 05/19/17 12:00 06/18/17 11:59 05/21/17 08:19 Quetiapine Fumarate (SEROquel) 50 mg BEDTIME ORAL 05/19/17 21:00 06/18/17 20:59 05/20/17 20:19 Tamsulosin HCl (Flomax) 0.4 mg BID ORAL 05/19/17 12:00 06/18/17 11:59 05/21/17 08:19 Vancomycin HCl (Vanco rx to dose) 1 ea DAILY PRN MISC Per rx protocol 05/20/17 15:15 06/19/17 15:14 Vancomycin/Sodium Chloride 250 ml @ 166.667 mls/hr Q12HR@0500,1700 IVPB 05/21/17 05:00 05/26/17 04:59 05/21/17 04:19 Zolpidem Tartrate (Ambien) 5 mg HSPRN PRN ORAL Insomnia 05/17/17 23:00 05/24/17 22:59 Odette Robb M.D. May 21, 2017 09:53
[2017-05-21] MEDS: LORazepam 1mg tab ORAL PRN (11:37)
[2017-05-21 11:38] VITALS: BP 141/79
--- NOTE | 2017-05-21 15:04 | Nephrology Progress Note ---
Assessment/Plan Problem List: (1) Renal failure (ARF), acute on chronic (2) Encephalopathy Assessment Renal failure ? Cr now wnl - Prerenal due to diuretics- - Renal due to meds ( bactrim) Unsteady gait Encephalopathy Plan: change IV fluid- add flomax- Gastric support Monitor renal parameters Urine studies avoid nephrotoxics Plan Plan: change IV fluid- add flomax- Gastric support Monitor renal parameters Urine studies avoid nephrotoxics Subjective ROS Limited/Unobtainable: No Constitutional: Reports: malaise Objective Objective Last 24 Hour Vital Signs Date Time Temp Pulse Resp B/P (MAP) Pulse Ox O2 Delivery O2 Flow Rate FiO2 05/21/17 11:38 97.0 70 18 141/79 98 Room Air 05/21/17 08:00 97.5 81 18 142/78 97 Room Air 05/21/17 06:45 80 18 Room Air 21 05/21/17 04:00 98.1 66 18 129/88 98 Room Air 05/21/17 00:00 98.3 61 18 113/69 100 Room Air 05/20/17 20:20 78 18 Room Air 21 05/20/17 20:00 97.5 67 18 138/77 96 Room Air 05/20/17 16:00 97.7 70 20 149/88 97 Room Air Intake and Output 05/20/17 05/21/17 19:00 07:00 Intake Total 860 ml 1210.000 ml Output Total 1000 ml 800 ml Balance -140 ml 410.000 ml Intake Oral 360 ml 360 ml IV Total 500 ml 850.000 ml Output Urine Total 1000 ml 800 ml # Bowel Movements 1 Laboratory Tests 05/21/17 01:40: Urine Eosinophils None seen Height (Feet): 6 Height (Inches): 1.00 Weight (Pounds): 180 General Appearance: no apparent distress Objective no change ERNST MANZANO May 21, 2017 15:04
[2017-05-21 16:00] VITALS: BP 143/80
[2017-05-21 20:00] VITALS: BP 139/83
--- NOTE | 2017-05-21 20:18 | General Progress Note ---
Assessment/Plan Assessment/Plan ASSESSMENT AND RECS: 1. Mechanical fall. CAT scan of the brain was negative. No evidence of bleed is noted at this time. 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 --> no evidence for infection either, appreciate id recs --> monitor mental status, however has baseline dementia 2. Elevated BUN and creatinine and dehydration. --> improved, potentially med related ==> appreciate renal recs 3. Afebrile. No leukocytosis 4. Agitation at baseline. Continue to closely monitor. Subjective Constitutional: Reports: no symptoms HEENT: Reports: no symptoms Cardiovascular: Reports: no symptoms Respiratory: Reports: no symptoms Gastrointestinal/Abdominal: Reports: no symptoms Genitourinary: Reports: no symptoms 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: Reports: no symptoms Endocrine: Reports: no symptoms Hematologic/Lymphatic: Reports: anemia Allergies: Coded Allergies: No Known Allergies (Unverified , 05/17/17) Subjective nad Objective Last 24 Hour Vital Signs Date Time Temp Pulse Resp B/P (MAP) Pulse Ox O2 Delivery O2 Flow Rate FiO2 05/21/17 20:00 98.4 80 20 139/83 97 Room Air 05/21/17 19:56 89 18 Room Air 21 05/21/17 16:00 97.9 64 18 143/80 97 Room Air 05/21/17 11:38 97.0 70 18 141/79 98 Room Air 05/21/17 08:00 97.5 81 18 142/78 97 Room Air 05/21/17 06:45 80 18 Room Air 21 05/21/17 04:00 98.1 66 18 129/88 98 Room Air 05/21/17 00:00 98.3 61 18 113/69 100 Room Air 05/20/17 20:20 78 18 Room Air 21 Intake and Output 05/20/17 05/21/17 19:00 07:00 Intake Total 860 ml 1210.000 ml Output Total 1000 ml 800 ml Balance -140 ml 410.000 ml Intake Oral 360 ml 360 ml IV Total 500 ml 850.000 ml Output Urine Total 1000 ml 800 ml # Bowel Movements 1 Laboratory Tests 05/21/17 01:40: Urine Eosinophils None seen Height (Feet): 6 Height (Inches): 1.00 Weight (Pounds): 180 General Appearance: alert EENT: TMs normal Neck: normal alignment Cardiovascular: normal rate Respiratory/Chest: normal breath sounds Abdomen: non tender Extremities: normal range of motion Edema: no edema noted Leg (L), no edema noted Leg (R) Edema: mild edema Neurologic: alert Jabier Goldman May 21, 2017 20:18
--- NOTE | 2017-05-21 21:59 | General Progress Note ---
Subjective Date patient seen: May 19, 2017 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: Reports: anxiety, depressed, emotional problems Allergies: Coded Allergies: No Known Allergies (Unverified , 05/17/17) Subjective the pt is calmer less agitated Objective Last 24 Hour Vital Signs Date Time Temp Pulse Resp B/P (MAP) Pulse Ox O2 Delivery O2 Flow Rate FiO2 05/21/17 20:00 98.4 80 20 139/83 97 Room Air 05/21/17 19:56 89 18 Room Air 21 05/21/17 16:00 97.9 64 18 143/80 97 Room Air 05/21/17 11:38 97.0 70 18 141/79 98 Room Air 05/21/17 08:00 97.5 81 18 142/78 97 Room Air 05/21/17 06:45 80 18 Room Air 21 05/21/17 04:00 98.1 66 18 129/88 98 Room Air 05/21/17 00:00 98.3 61 18 113/69 100 Room Air Intake and Output 05/20/17 05/21/17 19:00 07:00 Intake Total 860 ml 1210.000 ml Output Total 1000 ml 800 ml Balance -140 ml 410.000 ml Intake Oral 360 ml 360 ml IV Total 500 ml 850.000 ml Output Urine Total 1000 ml 800 ml # Bowel Movements 1 Laboratory Tests 05/21/17 01:40: Urine Eosinophils None seen Height (Feet): 6 Height (Inches): 1.00 Weight (Pounds): 180 Yancy Joshi M.D. May 21, 2017 21:59
--- NOTE | 2017-05-21 22:15 | Geriatric Progress Note ---
Assessment/Plan Discussed with: patient Subjective Interval Events 05/20/17 Mood/Memory: Reports: prior hx, anxiety, depressed feelings, emotional problems Sleep: Reports: sleeps well Geriatric Geriatric Last 24 Hour Vital Signs Date Time Temp Pulse Resp B/P (MAP) Pulse Ox O2 Delivery O2 Flow Rate FiO2 05/21/17 20:00 98.4 80 20 139/83 97 Room Air 05/21/17 19:56 89 18 Room Air 21 05/21/17 16:00 97.9 64 18 143/80 97 Room Air 05/21/17 11:38 97.0 70 18 141/79 98 Room Air 05/21/17 08:00 97.5 81 18 142/78 97 Room Air 05/21/17 06:45 80 18 Room Air 21 05/21/17 04:00 98.1 66 18 129/88 98 Room Air 05/21/17 00:00 98.3 61 18 113/69 100 Room Air Intake and Output 05/20/17 05/21/17 19:00 07:00 Intake Total 860 ml 1210.000 ml Output Total 1000 ml 800 ml Balance -140 ml 410.000 ml Intake Oral 360 ml 360 ml IV Total 500 ml 850.000 ml Output Urine Total 1000 ml 800 ml # Bowel Movements 1 Laboratory Tests Test 05/21/17 01:40 Urine Eosinophils None seen Current Medications Medications (Trade) Dose Ordered Sig/Chely Route PRN Reason Start Time Stop Time Status Last Admin Dose Admin Acetaminophen (Tylenol) 650 mg Q4H PRN ORAL Mild Pain (Pain Scale 1-3) 05/17/17 23:00 06/16/17 22:59 05/21/17 13:58 Albuterol Sulfate (Proventil) 2.5 mg EVERY 6 HOURS PRN HHN Shortness of Breath 05/17/17 23:00 05/22/17 22:59 Dextrose 1,000 ml @ 50 mls/hr Q20H IV 05/19/17 11:45 06/18/17 11:44 05/21/17 04:19 Dextrose (Dextrose 50%) STAT PRN IV Hypoglycemia 05/18/17 16:15 06/17/17 16:14 Docusate Sodium (Colace) 100 mg TID ORAL 05/19/17 13:00 06/17/17 08:59 05/21/17 17:53 Enoxaparin Sodium (Lovenox) 40 mg Q24H SUBQ 05/18/17 09:00 06/17/17 08:59 05/21/17 08:19 Insulin Aspart (NovoLOG) BEFORE MEALS AND HS SUBQ 05/18/17 16:30 06/17/17 16:29 05/21/17 20:26 Lorazepam (Ativan) 1 mg Q4H PRN ORAL For Anxiety 05/17/17 23:00 05/24/17 22:59 05/21/17 11:37 Pantoprazole (Protonix) 40 mg DAILY ORAL 05/19/17 12:00 06/18/17 11:59 05/21/17 08:19 Quetiapine Fumarate (SEROquel) 50 mg BEDTIME ORAL 05/19/17 21:00 06/18/17 20:59 05/21/17 20:21 Tamsulosin HCl (Flomax) 0.4 mg BID ORAL 05/19/17 12:00 06/18/17 11:59 05/21/17 17:55 Vancomycin HCl (Vanco rx to dose) 1 ea DAILY PRN MISC Per rx protocol 05/20/17 15:15 06/19/17 15:14 Vancomycin/Sodium Chloride 250 ml @ 166.667 mls/hr Q12HR@0500,1700 IVPB 05/21/17 05:00 05/26/17 04:59 05/21/17 17:53 Zolpidem Tartrate (Ambien) 5 mg HSPRN PRN ORAL Insomnia 05/17/17 23:00 05/24/17 22:59 Height (Feet): 6 Height (Inches): 1.00 Weight (Pounds): 180 General Appearance: well appearing, alert, good eye contact, appears stated age , fairly groomed Neurologic: alert, oriented x3, responsive Yancy Joshi M.D. May 21, 2017 22:14
[2017-05-22] VITALS: BP 142/88
[2017-05-22 04:00] VITALS: BP 140/83
[2017-05-22] MEDS: NovoLOG Insulin Flexpen SUBQ SCH ×4 (06:30→20:16)
[2017-05-22] MEDS: Vancomycin 750mg/NS 250ml IVPB SCH (06:37)
[2017-05-22 08:00] VITALS: BP 139/81
[2017-05-22] MEDS: Tamsulosin 0.4mg cap ORAL SCH ×2 (08:19→17:01)
[2017-05-22] MEDS: Docusate 100mg cap ORAL SCH ×3 (08:19→17:00)
[2017-05-22] MEDS: Enoxaparin 40mg Inj SUBQ SCH (08:23)
[2017-05-22 12:00] VITALS: BP 158/98
--- NOTE | 2017-05-22 12:33 | General Progress Note ---
Assessment/Plan Status: stable, progressing Subjective Date patient seen: May 22, 2017 Allergies: Coded Allergies: No Known Allergies (Unverified , 05/17/17) Subjective the pt is calm no acute distress Objective Last 24 Hour Vital Signs Date Time Temp Pulse Resp B/P (MAP) Pulse Ox O2 Delivery O2 Flow Rate FiO2 05/22/17 08:00 97.8 77 20 139/81 98 Room Air 05/22/17 04:00 97.7 81 20 140/83 97 Room Air 05/22/17 00:00 98.7 74 20 142/88 97 Room Air 05/21/17 20:00 98.4 80 20 139/83 97 Room Air 05/21/17 19:56 89 18 Room Air 21 05/21/17 16:00 97.9 64 18 143/80 97 Room Air Intake and Output 05/21/17 05/22/17 19:00 07:00 Intake Total 1266.667 ml 633.333 ml Output Total 700 ml Balance 566.667 ml 633.333 ml Intake Oral 600 ml IV Total 666.667 ml 633.333 ml Output Urine Total 700 ml # Voids 1 5 # Bowel Movements 1 Laboratory Tests 05/22/17 01:06: Urine Eosinophils None seen 05/22/17 04:00: Vancomycin Level Trough 11.9 Height (Feet): 6 Height (Inches): 1.00 Weight (Pounds): 180 General Appearance: no apparent distress, alert Neurologic: alert, oriented x 3, responsive Yancy Joshi M.D. May 22, 2017 12:33
--- NOTE | 2017-05-22 13:54 | Infectious Diseases Prog Note ---
Assessment/Plan Assessment/Plan Abx: IV Vanco 05/20- Assessment: Mechanical fall -CT head: No acute intracranial bleed, mass effect or edema. Mild atrophy of the brain.Nonspecific white matter hypoattenuation probably due to chronic small vessel disease. 05/24 CoNS bacteremia- likely contaminant -05/17 05/24, 05/20 Bcx NTD x4 Afebrile, no leukocytosis -u/a neg, CXR no acute disease Elevated BUN/Cr- likely dehydration- resolved Agitation on baseline dementia Plan: -D/c IV Vancomycin #3 and monitor off abx -f/u cx -Monitor CBC/CMP, temperatures -aspiration precautions Thank you for this consultation. Discussed with RN. Subjective Allergies: Coded Allergies: No Known Allergies (Unverified , 05/17/17) Subjective afebrile no leukocytosis 05/24 COns bacteremia, repeat Bcx p Objective Vital Signs Last 24 Hour Vital Signs Date Time Temp Pulse Resp B/P (MAP) Pulse Ox O2 Delivery O2 Flow Rate FiO2 05/22/17 08:00 97.8 77 20 139/81 98 Room Air 05/22/17 04:00 97.7 81 20 140/83 97 Room Air 05/22/17 00:00 98.7 74 20 142/88 97 Room Air 05/21/17 20:00 98.4 80 20 139/83 97 Room Air 05/21/17 19:56 89 18 Room Air 21 05/21/17 16:00 97.9 64 18 143/80 97 Room Air Height (Feet): 6 Height (Inches): 1.00 Weight (Pounds): 180 Objective General Appearance: other - elderly male, agitated, yelling "[facility] [facility]" several times HEENT: normocephalic, atraumatic, bilateral eye normal inspection, bilateral eye PERRL, bilateral eye EOMI, normal ENT inspection, normal pharynx, normal voice, moist mucus membranes Neck: normal inspection, full range of motion, supple Respiratory: normal inspection, lungs clear, normal breath sounds, no respiratory distress, no retraction, no wheezing, chest symmetrical Cardiovascular normal inspection, regular rate, rhythm, normal capillary refill Gastrointestinal: normal inspection, non tender, soft, non-distended, no guarding Musculoskeletal: other - full range of motion all ext Neurologic: other - agitated, good muscle tone, not oriented, saying same phrases, not ff commands Psychiatric: other - dementia, agitated Skin: normal inspection, normal color, no rash, warm/dry, well hydrated, normal turgor Microbiology Date/Time Source Procedure Growth Status 05/20/17 15:15 Blood Blood Culture - Preliminary NO GROWTH AFTER 24 HOURS Resulted 05/20/17 15:00 Blood Blood Culture - Preliminary NO GROWTH AFTER 24 HOURS Resulted Laboratory Tests Test 05/22/17 01:06 05/22/17 04:00 Urine Eosinophils None seen Vancomycin Level Trough 11.9 ug/mL (5.0-12.0) Current Medications Medications (Trade) Dose Ordered Sig/Chely Route PRN Reason Start Time Stop Time Status Last Admin Dose Admin Acetaminophen (Tylenol) 650 mg Q4H PRN ORAL Mild Pain (Pain Scale 1-3) 05/17/17 23:00 06/16/17 22:59 05/21/17 13:58 Albuterol Sulfate (Proventil) 2.5 mg EVERY 6 HOURS PRN HHN Shortness of Breath 05/17/17 23:00 05/22/17 22:59 Dextrose 1,000 ml @ 50 mls/hr Q20H IV 05/19/17 11:45 06/18/17 11:44 05/22/17 00:37 Dextrose (Dextrose 50%) STAT PRN IV Hypoglycemia 05/18/17 16:15 06/17/17 16:14 Docusate Sodium (Colace) 100 mg TID ORAL 05/19/17 13:00 06/17/17 08:59 05/22/17 13:24 Enoxaparin Sodium (Lovenox) 40 mg Q24H SUBQ 05/18/17 09:00 06/17/17 08:59 05/22/17 08:23 Insulin Aspart (NovoLOG) BEFORE MEALS AND HS SUBQ 05/18/17 16:30 06/17/17 16:29 05/21/17 20:26 Lorazepam (Ativan) 1 mg Q4H PRN ORAL For Anxiety 05/17/17 23:00 05/24/17 22:59 05/21/17 11:37 Pantoprazole (Protonix) 40 mg DAILY ORAL 05/19/17 12:00 06/18/17 11:59 05/22/17 08:19 Quetiapine Fumarate (SEROquel) 50 mg BEDTIME ORAL 05/19/17 21:00 06/18/17 20:59 05/21/17 20:21 Tamsulosin HCl (Flomax) 0.4 mg BID ORAL 05/19/17 12:00 06/18/17 11:59 05/22/17 08:19 Vancomycin HCl (Vanco rx to dose) 1 ea DAILY PRN MISC Per rx protocol 05/20/17 15:15 06/19/17 15:14 Vancomycin/Sodium Chloride 250 ml @ 166.667 mls/hr Q12HR@0500,1700 IVPB 05/21/17 05:00 05/26/17 04:59 05/22/17 06:37 Zolpidem Tartrate (Ambien) 5 mg HSPRN PRN ORAL Insomnia 05/17/17 23:00 05/24/17 22:59 Odette Robb M.D. May 22, 2017 13:54
[2017-05-22 16:00] VITALS: BP 145/88
--- NOTE | 2017-05-22 16:30 | Nephrology Progress Note ---
Assessment/Plan Problem List: (1) Renal failure (ARF), acute on chronic (2) Encephalopathy Assessment Renal failure ? Cr now wnl - Prerenal due to diuretics- - Renal due to meds ( bactrim) Unsteady gait Encephalopathy Plan: change IV fluid- add flomax- Gastric support Monitor renal parameters Urine studies avoid nephrotoxics Plan Plan: change IV fluid- add flomax- Gastric support Monitor renal parameters Urine studies avoid nephrotoxics Subjective ROS Limited/Unobtainable: No Objective Objective Last 24 Hour Vital Signs Date Time Temp Pulse Resp B/P (MAP) Pulse Ox O2 Delivery O2 Flow Rate FiO2 05/22/17 13:41 85 18 Room Air 21 05/22/17 12:00 98.0 67 18 158/98 98 05/22/17 08:00 97.8 77 20 139/81 98 Room Air 05/22/17 04:00 97.7 81 20 140/83 97 Room Air 05/22/17 00:00 98.7 74 20 142/88 97 Room Air 05/21/17 20:00 98.4 80 20 139/83 97 Room Air 05/21/17 19:56 89 18 Room Air 21 Intake and Output 05/21/17 05/22/17 19:00 07:00 Intake Total 1266.667 ml 633.333 ml Output Total 700 ml Balance 566.667 ml 633.333 ml Intake Oral 600 ml IV Total 666.667 ml 633.333 ml Output Urine Total 700 ml # Voids 1 5 # Bowel Movements 1 Laboratory Tests 05/22/17 01:06: Urine Eosinophils None seen 05/22/17 04:00: Vancomycin Level Trough 11.9 Height (Feet): 6 Height (Inches): 1.00 Weight (Pounds): 180 General Appearance: no apparent distress Objective no change ERNST MANZANO May 22, 2017 16:30
--- NOTE | 2017-05-22 17:41 | Pulmonology Progress Note ---
Assessment/Plan Problems: (1) Encephalopathy (2) Renal failure (ARF), acute on chronic (3) Acute confusion (4) Unsteady gait (5) Altered mental status Assessment/Plan imrpovng f/u ID recomendations renal f/u pt/ot dvt prophlaxis Subjective ROS Limited/Unobtainable: No Constitutional: Reports: no symptoms HEENT: Repors: no symptoms Respiratory: Reports: no symptoms Allergies: Coded Allergies: No Known Allergies (Unverified , 05/17/17) Objective Last 24 Hour Vital Signs Date Time Temp Pulse Resp B/P (MAP) Pulse Ox O2 Delivery O2 Flow Rate FiO2 05/22/17 16:00 98.1 83 18 145/88 98 05/22/17 13:41 85 18 Room Air 21 05/22/17 12:00 98.0 67 18 158/98 98 05/22/17 08:00 97.8 77 20 139/81 98 Room Air 05/22/17 04:00 97.7 81 20 140/83 97 Room Air 05/22/17 00:00 98.7 74 20 142/88 97 Room Air 05/21/17 20:00 98.4 80 20 139/83 97 Room Air 05/21/17 19:56 89 18 Room Air 21 Intake and Output 05/21/17 05/22/17 19:00 07:00 Intake Total 1266.667 ml 633.333 ml Output Total 700 ml Balance 566.667 ml 633.333 ml Intake Oral 600 ml IV Total 666.667 ml 633.333 ml Output Urine Total 700 ml # Voids 1 5 # Bowel Movements 1 General Appearance: cachetic HEENT: normocephalic, atraumatic Respiratory/Chest: chest wall non-tender, lungs clear Cardiovascular: normal peripheral pulses, normal rate Abdomen: normal bowel sounds, soft, non tender Genitourinary: normal external genitalia Skin: no rash 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, no motor/sensory deficits Microbiology Date/Time Source Procedure Growth Status 05/20/17 15:15 Blood Blood Culture - Preliminary NO GROWTH AFTER 24 HOURS Resulted 05/20/17 15:00 Blood Blood Culture - Preliminary NO GROWTH AFTER 24 HOURS Resulted Laboratory Tests 05/22/17 01:06: Urine Eosinophils None seen 05/22/17 04:00: Vancomycin Level Trough 11.9 Current Medications Medications (Trade) Dose Ordered Sig/Chely Route PRN Reason Start Time Stop Time Status Last Admin Dose Admin Acetaminophen (Tylenol) 650 mg Q4H PRN ORAL Mild Pain (Pain Scale 1-3) 05/17/17 23:00 06/16/17 22:59 05/21/17 13:58 Albuterol Sulfate (Proventil) 2.5 mg EVERY 6 HOURS PRN HHN Shortness of Breath 05/17/17 23:00 05/22/17 22:59 Dextrose 1,000 ml @ 50 mls/hr Q20H IV 05/19/17 11:45 06/18/17 11:44 05/22/17 00:37 Dextrose (Dextrose 50%) STAT PRN IV Hypoglycemia 05/18/17 16:15 06/17/17 16:14 Docusate Sodium (Colace) 100 mg TID ORAL 05/19/17 13:00 06/17/17 08:59 05/22/17 17:00 Enoxaparin Sodium (Lovenox) 40 mg Q24H SUBQ 05/18/17 09:00 06/17/17 08:59 05/22/17 08:23 Insulin Aspart (NovoLOG) BEFORE MEALS AND HS SUBQ 05/18/17 16:30 06/17/17 16:29 05/22/17 17:01 Lorazepam (Ativan) 1 mg Q4H PRN ORAL For Anxiety 05/17/17 23:00 05/24/17 22:59 05/21/17 11:37 Pantoprazole (Protonix) 40 mg DAILY ORAL 05/19/17 12:00 06/18/17 11:59 05/22/17 08:19 Quetiapine Fumarate (SEROquel) 50 mg BEDTIME ORAL 05/19/17 21:00 06/18/17 20:59 05/21/17 20:21 Tamsulosin HCl (Flomax) 0.4 mg BID ORAL 05/19/17 12:00 06/18/17 11:59 05/22/17 17:01 Zolpidem Tartrate (Ambien) 5 mg HSPRN PRN ORAL Insomnia 05/17/17 23:00 05/24/17 22:59 AL PAPPAS May 22, 2017 17:41
[2017-05-22 19:58] VITALS: BP 150/94
--- NOTE | 2017-05-22 20:31 | General Progress Note ---
Assessment/Plan Assessment/Plan ASSESSMENT AND RECS: 1. Leukopenia 2/2 infection on abx per id service 2. Mechanical fall. CAT scan of the brain was negative. No evidence of bleed is noted at this time. 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 --> no evidence for infection either, appreciate id recs --> monitor mental status, however has baseline dementia 3. Elevated BUN and creatinine and dehydration. --> improved, potentially med related ==> appreciate renal recs 4. Agitation at baseline. Continue to closely monitor. 5. Anemia, very mild at this time. Continue to monitor Subjective Allergies: Coded Allergies: No Known Allergies (Unverified , 05/17/17) All Systems: reviewed and negative except above Subjective nad Objective Last 24 Hour Vital Signs Date Time Temp Pulse Resp B/P (MAP) Pulse Ox O2 Delivery O2 Flow Rate FiO2 05/22/17 19:58 97.9 79 20 150/94 100 05/22/17 16:00 98.1 83 18 145/88 98 05/22/17 13:41 85 18 Room Air 21 05/22/17 12:00 98.0 67 18 158/98 98 05/22/17 08:00 97.8 77 20 139/81 98 Room Air 05/22/17 04:00 97.7 81 20 140/83 97 Room Air 05/22/17 00:00 98.7 74 20 142/88 97 Room Air Intake and Output 05/21/17 05/22/17 19:00 07:00 Intake Total 1266.667 ml 633.333 ml Output Total 700 ml Balance 566.667 ml 633.333 ml Intake Oral 600 ml IV Total 666.667 ml 633.333 ml Output Urine Total 700 ml # Voids 1 5 # Bowel Movements 1 Laboratory Tests 05/22/17 01:06: Urine Eosinophils None seen 05/22/17 04:00: Vancomycin Level Trough 11.9 Height (Feet): 6 Height (Inches): 1.00 Weight (Pounds): 180 General Appearance: no apparent distress EENT: normal ENT inspection Neck: normal alignment Cardiovascular: normal peripheral pulses Edema: trace edema 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
[2017-05-22] MEDS: LORazepam 1mg tab ORAL PRN (21:22)
[2017-05-23] VITALS: BP 145/89
[2017-05-23 04:00] VITALS: BP 144/81
[2017-05-23] MEDS: NovoLOG Insulin Flexpen SUBQ SCH ×4 (05:31→21:00)
[2017-05-23 08:00] VITALS: BP 140/79
[2017-05-23] MEDS: LORazepam 1mg tab ORAL PRN ×2 (09:10→21:02)
[2017-05-23] MEDS: Tamsulosin 0.4mg cap ORAL SCH ×2 (09:10→17:53)
[2017-05-23] MEDS: Enoxaparin 40mg Inj SUBQ SCH (09:12)
[2017-05-23] MEDS: Docusate 100mg cap ORAL SCH ×3 (09:17→17:53)
--- NOTE | 2017-05-23 11:42 | Infectious Diseases Prog Note ---
Assessment/Plan Assessment/Plan Abx: IV Vanco 05/20- Assessment: Mechanical fall -CT head: No acute intracranial bleed, mass effect or edema. Mild atrophy of the brain.Nonspecific white matter hypoattenuation probably due to chronic small vessel disease. 05/24 CoNS bacteremia- likely contaminant -05/17 05/24, 05/20 Bcx NTD x4 Afebrile, no leukocytosis -u/a neg, CXR no acute disease Elevated BUN/Cr- likely dehydration- resolved Agitation on baseline dementia Plan: -Continue to monitor off abx -05/22 SP IV vanco #3 -f/u cx -Monitor CBC/CMP, temperatures -aspiration precautions Thank you for this consultation. Discussed with RN. Subjective Allergies: Coded Allergies: No Known Allergies (Unverified , 05/17/17) Subjective afebrile no leukocytosis repeat Bcx NTD off abx Objective Vital Signs Last 24 Hour Vital Signs Date Time Temp Pulse Resp B/P (MAP) Pulse Ox O2 Delivery O2 Flow Rate FiO2 05/23/17 10:17 97.3 05/23/17 08:00 97.3 59 18 140/79 05/23/17 04:00 97.7 52 18 144/81 96 05/23/17 00:00 98.1 85 18 145/89 100 05/22/17 21:08 87 18 Room Air 21 05/22/17 19:58 97.9 79 20 150/94 100 05/22/17 16:00 98.1 83 18 145/88 98 05/22/17 13:41 85 18 Room Air 21 05/22/17 12:00 98.0 67 18 158/98 98 Height (Feet): 6 Height (Inches): 1.00 Weight (Pounds): 180 Objective General Appearance: other - elderly male, agitated, yelling "[facility]" several times HEENT: normocephalic, atraumatic, bilateral eye normal inspection, bilateral eye PERRL, bilateral eye EOMI, normal ENT inspection, normal pharynx, normal voice, moist mucus membranes Neck: normal inspection, full range of motion, supple Respiratory: normal inspection, lungs clear, normal breath sounds, no respiratory distress, no retraction, no wheezing, chest symmetrical Cardiovascular normal inspection, regular rate, rhythm, normal capillary refill Gastrointestinal: normal inspection, non tender, soft, non-distended, no guarding Musculoskeletal: other - full range of motion all ext Neurologic: other - agitated, good muscle tone, not oriented, saying same phrases, not ff commands Psychiatric: other - dementia, agitated Skin: normal inspection, normal color, no rash, warm/dry, well hydrated, normal turgor Microbiology Date/Time Source Procedure Growth Status 05/20/17 15:15 Blood Blood Culture - Preliminary NO GROWTH AFTER 48 HOURS Resulted 05/20/17 15:00 Blood Blood Culture - Preliminary NO GROWTH AFTER 48 HOURS Resulted Current Medications Medications (Trade) Dose Ordered Sig/Chely Route PRN Reason Start Time Stop Time Status Last Admin Dose Admin Acetaminophen (Tylenol) 650 mg Q4H PRN ORAL Mild Pain (Pain Scale 1-3) 05/17/17 23:00 06/16/17 22:59 05/23/17 09:17 Dextrose 1,000 ml @ 50 mls/hr Q20H IV 05/19/17 11:45 06/18/17 11:44 05/23/17 06:04 Dextrose (Dextrose 50%) STAT PRN IV Hypoglycemia 05/18/17 16:15 06/17/17 16:14 Docusate Sodium (Colace) 100 mg TID ORAL 05/19/17 13:00 06/17/17 08:59 05/23/17 09:17 Enoxaparin Sodium (Lovenox) 40 mg Q24H SUBQ 05/18/17 09:00 06/17/17 08:59 05/23/17 09:12 Insulin Aspart (NovoLOG) BEFORE MEALS AND HS SUBQ 05/18/17 16:30 06/17/17 16:29 05/22/17 17:01 Lorazepam (Ativan) 1 mg Q4H PRN ORAL For Anxiety 05/17/17 23:00 05/24/17 22:59 05/23/17 09:10 Pantoprazole (Protonix) 40 mg DAILY ORAL 05/19/17 12:00 06/18/17 11:59 05/23/17 09:10 Quetiapine Fumarate (SEROquel) 50 mg BEDTIME ORAL 05/19/17 21:00 06/18/17 20:59 05/22/17 20:14 Tamsulosin HCl (Flomax) 0.4 mg BID ORAL 05/19/17 12:00 06/18/17 11:59 05/23/17 09:10 Zolpidem Tartrate (Ambien) 5 mg HSPRN PRN ORAL Insomnia 05/17/17 23:00 05/24/17 22:59 Odette Robb M.D. May 23, 2017 11:42
[2017-05-23 12:00] VITALS: BP 145/94
--- NOTE | 2017-05-23 15:18 | Nephrology Progress Note ---
Assessment/Plan Problem List: (1) Renal failure (ARF), acute on chronic (2) Encephalopathy Assessment Renal failure ? Cr now wnl - Prerenal due to diuretics- - Renal due to meds ( bactrim) Unsteady gait Encephalopathy Plan Plan: no labs today change IV fluid- add flomax- Gastric support Monitor renal parameters Urine studies avoid nephrotoxics Subjective ROS Limited/Unobtainable: No Constitutional: Reports: malaise Objective Objective Last 24 Hour Vital Signs Date Time Temp Pulse Resp B/P (MAP) Pulse Ox O2 Delivery O2 Flow Rate FiO2 05/23/17 12:00 97.7 68 20 145/94 99 05/23/17 10:17 97.3 05/23/17 08:00 97.3 59 18 140/79 05/23/17 04:00 97.7 52 18 144/81 96 05/23/17 00:00 98.1 85 18 145/89 100 05/22/17 21:08 87 18 Room Air 21 05/22/17 19:58 97.9 79 20 150/94 100 05/22/17 16:00 98.1 83 18 145/88 98 Intake and Output 05/22/17 05/23/17 19:00 07:00 Intake Total 1180 ml 200 ml Output Total 2000 ml Balance 1180 ml -1800 ml Intake Oral 680 ml IV Total 500 ml 200 ml Output Urine Total 2000 ml # Voids 5 Height (Feet): 6 Height (Inches): 1.00 Weight (Pounds): 180 General Appearance: no apparent distress Objective no change ERNST MANZANO May 23, 2017 15:18
[2017-05-23 16:12] VITALS: BP 139/83
--- NOTE | 2017-05-23 19:14 | General Progress Note ---
Assessment/Plan Assessment/Plan ASSESSMENT AND RECS: 1. Leukopenia 2/2 infection on abx per id service --> likely hemodilutional 2. Mechanical fall. CAT scan of the brain was negative. No evidence of bleed is noted at this time. 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 --> no evidence for infection either, appreciate id recs --> monitor mental status, however has baseline dementia 3. Elevated BUN and creatinine and dehydration. --> improved, potentially med related ==> appreciate renal recs 4. Agitation at baseline. Continue to closely monitor. 5. Anemia, very mild at this time. Continue to monitor Subjective Constitutional: Denies: no symptoms, chills, diaphoresis, fever, malaise, weakness, other HEENT: Denies: no symptoms, eye pain, blurred vision, tearing, double vision, ear pain, ear discharge, nose pain, nose congestion, throat pain, throat swelling, mouth pain, mouth swelling, other Cardiovascular: Denies: no symptoms, chest pain, edema, irregular heart rate, lightheadedness, palpitations, syncope, other Respiratory: Denies: no symptoms, cough, orthopnea, shortness of breath, SOB with excertion, SOB at rest, sputum, stridor, wheezing, other Gastrointestinal/Abdominal: Denies: no symptoms, abdomen distended, abdominal pain, black stools, tarry stools, blood in stool, constipated, diarrhea, difficulty swallowing, nausea, poor appetite, poor fluid intake, rectal bleeding , vomiting, other Genitourinary: Denies: no symptoms, burning, discharge, frequency, flank pain, hematuria, incontinence, pain, urgency, other 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: Denies: no symptoms, anxiety, depressed, emotional problems, headache, numbness, paresthesia, pre-existing deficit, seizure, tingling, tremors, weakness, other Endocrine: Denies: no symptoms, excessive sweating, flushing, intolerance to cold, intolerance to heat, increased hunger, increased thirst, increased urine, unexplained weight gain, unexplained weight loss, other Hematologic/Lymphatic: Denies: no symptoms, anemia, easy bleeding, easy bruising, other Allergies: Coded Allergies: No Known Allergies (Unverified , 05/17/17) Subjective nad Objective Last 24 Hour Vital Signs Date Time Temp Pulse Resp B/P (MAP) Pulse Ox O2 Delivery O2 Flow Rate FiO2 05/23/17 16:12 97.8 61 19 139/83 99 05/23/17 12:00 97.7 68 20 145/94 99 05/23/17 10:17 97.3 05/23/17 08:00 97.3 59 18 140/79 05/23/17 04:00 97.7 52 18 144/81 96 05/23/17 00:00 98.1 85 18 145/89 100 05/22/17 21:08 87 18 Room Air 21 05/22/17 19:58 97.9 79 20 150/94 100 Intake and Output 05/22/17 05/23/17 19:00 07:00 Intake Total 1180 ml 200 ml Output Total 2000 ml Balance 1180 ml -1800 ml Intake Oral 680 ml IV Total 500 ml 200 ml Output Urine Total 2000 ml # Voids 5 Height (Feet): 6 Height (Inches): 1.00 Weight (Pounds): 180 General Appearance: alert EENT: normal ENT inspection Neck: normal alignment Cardiovascular: regular rhythm Respiratory/Chest: normal breath sounds Abdomen: soft Pelvis: normal external exam Extremities: non-tender Jabier Goldman May 23, 2017 19:14
[2017-05-23 20:00] VITALS: BP 150/93
--- NOTE | 2017-05-23 23:08 | Pulmonology Progress Note ---
Assessment/Plan Problems: (1) Acute confusion (2) Unsteady gait (3) Renal failure (ARF), acute on chronic (4) Encephalopathy Assessment/Plan imrpovng id evaluation check electrolytes check cultures dc planning Subjective ROS Limited/Unobtainable: No Interval Events: feeling better Constitutional: Reports: no symptoms HEENT: Repors: no symptoms Allergies: Coded Allergies: No Known Allergies (Unverified , 05/17/17) Objective Last 24 Hour Vital Signs Date Time Temp Pulse Resp B/P (MAP) Pulse Ox O2 Delivery O2 Flow Rate FiO2 05/23/17 20:00 98.2 71 18 150/93 97 05/23/17 16:12 97.8 61 19 139/83 99 05/23/17 12:00 97.7 68 20 145/94 99 05/23/17 10:17 97.3 05/23/17 08:00 97.3 59 18 140/79 05/23/17 04:00 97.7 52 18 144/81 96 05/23/17 00:00 98.1 85 18 145/89 100 Intake and Output 05/22/17 05/23/17 19:00 07:00 Intake Total 1180 ml 200 ml Output Total 2000 ml Balance 1180 ml -1800 ml Intake Oral 680 ml IV Total 500 ml 200 ml Output Urine Total 2000 ml # Voids 5 General Appearance: WD/WN HEENT: normocephalic, atraumatic Respiratory/Chest: chest wall non-tender, lungs clear Cardiovascular: normal peripheral pulses, normal rate Abdomen: normal bowel sounds, soft, non tender Genitourinary: normal external genitalia Extremities: no cyanosis 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, no motor/sensory deficits Current Medications Medications (Trade) Dose Ordered Sig/Chely Route PRN Reason Start Time Stop Time Status Last Admin Dose Admin Acetaminophen (Tylenol) 650 mg Q4H PRN ORAL Mild Pain (Pain Scale 1-3) 05/17/17 23:00 06/16/17 22:59 05/23/17 21:02 Dextrose 1,000 ml @ 50 mls/hr Q20H IV 05/19/17 11:45 06/18/17 11:44 05/23/17 06:04 Dextrose (Dextrose 50%) STAT PRN IV Hypoglycemia 05/18/17 16:15 06/17/17 16:14 Docusate Sodium (Colace) 100 mg TID ORAL 05/19/17 13:00 06/17/17 08:59 05/23/17 17:53 Enoxaparin Sodium (Lovenox) 40 mg Q24H SUBQ 05/18/17 09:00 06/17/17 08:59 05/23/17 09:12 Insulin Aspart (NovoLOG) BEFORE MEALS AND HS SUBQ 05/18/17 16:30 06/17/17 16:29 05/23/17 16:48 Lorazepam (Ativan) 1 mg Q4H PRN ORAL For Anxiety 05/17/17 23:00 05/24/17 22:59 05/23/17 21:02 Pantoprazole (Protonix) 40 mg DAILY ORAL 05/19/17 12:00 06/18/17 11:59 05/23/17 09:10 Quetiapine Fumarate (SEROquel) 50 mg BEDTIME ORAL 05/19/17 21:00 06/18/17 20:59 05/23/17 21:02 Tamsulosin HCl (Flomax) 0.4 mg BID ORAL 05/19/17 12:00 06/18/17 11:59 05/23/17 17:53 Zolpidem Tartrate (Ambien) 5 mg HSPRN PRN ORAL Insomnia 05/17/17 23:00 05/24/17 22:59 AL PAPPAS May 23, 2017 23:08
[2017-05-24] VITALS (7 sets, daily range): BP systolic 133–184; BP diastolic 75–106
[2017-05-24] MEDS: NovoLOG Insulin Flexpen SUBQ SCH ×4 (05:58→21:00)
[2017-05-24 07:33] LABS: BASOPHILS % (AUTO) 2.1 % (0.0-2.0); EOSINOPHILS % (AUTO) 7.2 % (0.0-3.0); HEMATOCRIT 38.8 % (42.0-52.0); HEMOGLOBIN 12.4 G/DL (14.2-18.0); LYMPHOCYTES % (AUTO) 36.1 % (20.0-45.0); MEAN CORPUSCULAR VOLUME 99 FL (80-99); MONOCYTES % (AUTO) 12.6 % (1.0-10.0); NEUTROPHILS % (AUTO) 41.9 % (45.0-75.0); PLATELET COUNT 225 K/UL (150-450); RED CELL DISTRIBUTION WIDTH 13.4 % (11.6-14.8); WHITE BLOOD COUNT 3.5 K/UL (4.8-10.8)
[2017-05-24 08:05] LABS: ALANINE AMINOTRANSFERASE 22 U/L (12-78); ALBUMIN 2.9 G/DL (3.4-5.0); ALBUMIN/GLOBULIN RATIO 0.8 (1.0-2.7); ALKALINE PHOSPHATASE 86 U/L (46-116); ANION GAP 15 mmol/L (5-15); ASPARTATE AMINO TRANSFERASE 17 U/L (15-37); BILIRUBIN,TOTAL 0.4 MG/DL (0.2-1.0); BLOOD UREA NITROGEN 12 mg/dL (7-18); CALCIUM 7.9 MG/DL (8.5-10.1); CARBON DIOXIDE 28 MMOL/L (21-32); CHLORIDE 104 MMOL/L (98-107); PHOSPHORUS 2.9 MG/DL (2.5-4.9); POTASSIUM 4.2 MMOL/L (3.5-5.1); SODIUM 147 MMOL/L (136-145)
[2017-05-24] MEDS: Docusate 100mg cap ORAL SCH ×3 (08:34→17:23)
[2017-05-24] MEDS: Tamsulosin 0.4mg cap ORAL SCH ×2 (08:34→17:23)
[2017-05-24] MEDS: Enoxaparin 40mg Inj SUBQ SCH (08:39)
--- NOTE | 2017-05-24 11:15 | General Progress Note ---
Assessment/Plan Status: stable Assessment/Plan encephalopathy agitation -cont current meds -provided ro/st Subjective Date patient seen: May 23, 2017 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: Reports: anxiety, depressed Allergies: Coded Allergies: No Known Allergies (Unverified , 05/17/17) Subjective the pt is calm no acute distress Objective Last 24 Hour Vital Signs Date Time Temp Pulse Resp B/P (MAP) Pulse Ox O2 Delivery O2 Flow Rate FiO2 05/24/17 07:58 Room Air 05/24/17 07:57 97.7 84 19 136/88 99 05/24/17 04:00 98.1 54 18 154/75 95 Room Air 05/24/17 00:00 97.9 64 18 145/83 99 05/23/17 20:00 98.2 71 18 150/93 97 05/23/17 16:12 97.8 61 19 139/83 99 05/23/17 12:00 97.7 68 20 145/94 99 Intake and Output 05/23/17 05/24/17 19:00 07:00 Intake Total 1260 ml 725 ml Output Total 400 ml 880 ml Balance 860 ml -155 ml Intake Oral 1160 ml 275 ml IV Total 100 ml 450 ml Output Urine Total 400 ml 880 ml # Voids 3 # Bowel Movements 2 Laboratory Tests 05/24/17 06:40: White Blood Count 3.5L, Red Blood Count 3.90L, Hemoglobin 12.4L, Hematocrit 38.8L, Mean Corpuscular Volume 99, Mean Corpuscular Hemoglobin 31.7H, Mean Corpuscular Hemoglobin Concent 31.9L, Red Cell Distribution Width 13.4, Platelet Count 225, Mean Platelet Volume 7.4, Neutrophils (%) (Auto) 41.9L, Lymphocytes (%) (Auto) 36.1, Monocytes (%) (Auto) 12.6H, Eosinophils (%) (Auto) 7.2H, Basophils (%) (Auto) 2.1H, Sodium Level 147H, Potassium Level 4.2, Chloride Level 104, Carbon Dioxide Level 28, Anion Gap 15, Blood Urea Nitrogen 12, Creatinine 1.0, Estimat Glomerular Filtration Rate , Glucose Level 91, Uric Acid 4.5, Calcium Level 7.9L, Phosphorus Level 2.9, Magnesium Level 2.0, Total Bilirubin 0.4, Aspartate Amino Transf (AST/SGOT) 17, Alanine Aminotransferase ( ALT/SGPT) 22, Alkaline Phosphatase 86, C-Reactive Protein, Quantitative < 0.4, Pro-B-Type Natriuretic Peptide 207H, Total Protein 6.5, Albumin 2.9L, Globulin 3.6, Albumin/Globulin Ratio 0.8L Height (Feet): 6 Height (Inches): 1.00 Weight (Pounds): 180 General Appearance: no apparent distress, alert Neurologic: alert, responsive, depressed affect Yancy Joshi M.D. May 24, 2017 11:14
[2017-05-24] MEDS: LORazepam 1mg tab ORAL PRN (14:50)
--- NOTE | 2017-05-24 15:49 | Nephrology Progress Note ---
Assessment/Plan Problem List: (1) Renal failure (ARF), acute on chronic (2) Encephalopathy Assessment Renal failure ? Cr now wnl - Prerenal due to diuretics- - Renal due to meds ( bactrim) Unsteady gait Encephalopathy Plan Plan: no labs today change IV fluid- add flomax- Gastric support Monitor renal parameters Urine studies avoid nephrotoxics Subjective ROS Limited/Unobtainable: No Objective Objective Last 24 Hour Vital Signs Date Time Temp Pulse Resp B/P (MAP) Pulse Ox O2 Delivery O2 Flow Rate FiO2 05/24/17 11:50 97.7 62 20 153/99 100 Room Air 05/24/17 07:58 Room Air 05/24/17 07:57 97.7 84 19 136/88 99 05/24/17 04:00 98.1 54 18 154/75 95 Room Air 05/24/17 00:00 97.9 64 18 145/83 99 05/23/17 20:00 98.2 71 18 150/93 97 05/23/17 16:12 97.8 61 19 139/83 99 Intake and Output 05/23/17 05/24/17 19:00 07:00 Intake Total 1260 ml 725 ml Output Total 400 ml 880 ml Balance 860 ml -155 ml Intake Oral 1160 ml 275 ml IV Total 100 ml 450 ml Output Urine Total 400 ml 880 ml # Voids 3 # Bowel Movements 2 Laboratory Tests 05/24/17 06:40: White Blood Count 3.5L, Red Blood Count 3.90L, Hemoglobin 12.4L, Hematocrit 38.8L, Mean Corpuscular Volume 99, Mean Corpuscular Hemoglobin 31.7H, Mean Corpuscular Hemoglobin Concent 31.9L, Red Cell Distribution Width 13.4, Platelet Count 225, Mean Platelet Volume 7.4, Neutrophils (%) (Auto) 41.9L, Lymphocytes (%) (Auto) 36.1, Monocytes (%) (Auto) 12.6H, Eosinophils (%) (Auto) 7.2H, Basophils (%) (Auto) 2.1H, Sodium Level 147H, Potassium Level 4.2, Chloride Level 104, Carbon Dioxide Level 28, Anion Gap 15, Blood Urea Nitrogen 12, Creatinine 1.0, Estimat Glomerular Filtration Rate , Glucose Level 91, Uric Acid 4.5, Calcium Level 7.9L, Phosphorus Level 2.9, Magnesium Level 2.0, Total Bilirubin 0.4, Aspartate Amino Transf (AST/SGOT) 17, Alanine Aminotransferase ( ALT/SGPT) 22, Alkaline Phosphatase 86, C-Reactive Protein, Quantitative < 0.4, Pro-B-Type Natriuretic Peptide 207H, Total Protein 6.5, Albumin 2.9L, Globulin 3.6, Albumin/Globulin Ratio 0.8L Height (Feet): 6 Height (Inches): 1.00 Weight (Pounds): 180 General Appearance: no apparent distress Objective no change ERNST MANZANO May 24, 2017 15:49
--- NOTE | 2017-05-24 15:53 | Infectious Diseases Prog Note ---
Assessment/Plan Assessment/Plan Abx: IV Vanco 05/20- Assessment: Mechanical fall -CT head: No acute intracranial bleed, mass effect or edema. Mild atrophy of the brain.Nonspecific white matter hypoattenuation probably due to chronic small vessel disease. Persistent Gram positive bacteremia- ?contaminants vs true bacteremia- r/o endocarditis -05/17 05/24 CoNs, 05/20 Bcx 05/24 GPC clusters Afebrile, no leukocytosis -u/a neg, CXR no acute disease Elevated BUN/Cr- likely dehydration- resolved Agitation on baseline dementia Plan: -REsume IV Vanco given recurrent bacteremia -05/22 SP IV vanco #3 -Repeat 2 sets of Bcx -requested ID CoNS -TTE to evaluate for vegetations -hold discharge -f/u cx -Monitor CBC/CMP, temperatures -aspiration precautions Thank you for this consultation. Discussed with RN. Subjective Allergies: Coded Allergies: No Known Allergies (Unverified , 05/17/17) Subjective afebrile no leukocytosis repeat Bcx growing 05/24 GPC clusters Objective Vital Signs Last 24 Hour Vital Signs Date Time Temp Pulse Resp B/P (MAP) Pulse Ox O2 Delivery O2 Flow Rate FiO2 05/24/17 11:50 97.7 62 20 153/99 100 Room Air 05/24/17 07:58 Room Air 05/24/17 07:57 97.7 84 19 136/88 99 05/24/17 04:00 98.1 54 18 154/75 95 Room Air 05/24/17 00:00 97.9 64 18 145/83 99 05/23/17 20:00 98.2 71 18 150/93 97 05/23/17 16:12 97.8 61 19 139/83 99 Height (Feet): 6 Height (Inches): 1.00 Weight (Pounds): 180 Objective General Appearance: no distress HEENT: normocephalic, atraumatic, bilateral eye normal inspection, bilateral eye PERRL, bilateral eye EOMI, normal ENT inspection, normal pharynx, normal voice, moist mucus membranes Neck: normal inspection, full range of motion, supple Respiratory: normal inspection, lungs clear, normal breath sounds, no respiratory distress, no retraction, no wheezing, chest symmetrical Cardiovascular normal inspection, regular rate, rhythm, normal capillary refill Gastrointestinal: normal inspection, non tender, soft, non-distended, no guarding Musculoskeletal: other - full range of motion all ext Skin: normal inspection, normal color, no rash, warm/dry, well hydrated, normal turgor Laboratory Tests Test 05/24/17 06:40 White Blood Count 3.5 K/UL (4.8-10.8) L Red Blood Count 3.90 M/UL (4.70-6.10) L Hemoglobin 12.4 G/DL (14.2-18.0) L Hematocrit 38.8 % (42.0-52.0) L Mean Corpuscular Volume 99 FL (80-99) Mean Corpuscular Hemoglobin 31.7 PG (27.0-31.0) H Mean Corpuscular Hemoglobin Concent 31.9 G/DL (32.0-36.0) L Red Cell Distribution Width 13.4 % (11.6-14.8) Platelet Count 225 K/UL (150-450) Mean Platelet Volume 7.4 FL (6.5-10.1) Neutrophils (%) (Auto) 41.9 % (45.0-75.0) L Lymphocytes (%) (Auto) 36.1 % (20.0-45.0) Monocytes (%) (Auto) 12.6 % (1.0-10.0) H Eosinophils (%) (Auto) 7.2 % (0.0-3.0) H Basophils (%) (Auto) 2.1 % (0.0-2.0) H Sodium Level 147 MMOL/L (136-145) H Potassium Level 4.2 MMOL/L (3.5-5.1) Chloride Level 104 MMOL/L (98-107) Carbon Dioxide Level 28 MMOL/L (21-32) Anion Gap 15 mmol/L (5-15) Blood Urea Nitrogen 12 mg/dL (7-18) Creatinine 1.0 MG/DL (0.55-1.30) Estimat Glomerular Filtration Rate mL/min (>60) Glucose Level 91 MG/DL (74-106) Uric Acid 4.5 MG/DL (2.6-7.2) Calcium Level 7.9 MG/DL (8.5-10.1) L Phosphorus Level 2.9 MG/DL (2.5-4.9) Magnesium Level 2.0 MG/DL (1.8-2.4) Total Bilirubin 0.4 MG/DL (0.2-1.0) Aspartate Amino Transf (AST/SGOT) 17 U/L (15-37) Alanine Aminotransferase (ALT/SGPT) 22 U/L (12-78) Alkaline Phosphatase 86 U/L (46-116) C-Reactive Protein, Quantitative < 0.4 mg/dL (0.00-0.90) Pro-B-Type Natriuretic Peptide 207 pg/mL (0-125) H Total Protein 6.5 G/DL (6.4-8.2) Albumin 2.9 G/DL (3.4-5.0) L Globulin 3.6 g/dL Albumin/Globulin Ratio 0.8 (1.0-2.7) L Current Medications Medications (Trade) Dose Ordered Sig/Chely Route PRN Reason Start Time Stop Time Status Last Admin Dose Admin Acetaminophen (Tylenol) 650 mg Q4H PRN ORAL Mild Pain (Pain Scale 1-3) 05/17/17 23:00 06/16/17 22:59 05/24/17 14:50 Dextrose 1,000 ml @ 50 mls/hr Q20H IV 05/19/17 11:45 06/18/17 11:44 05/24/17 12:41 Dextrose (Dextrose 50%) STAT PRN IV Hypoglycemia 05/18/17 16:15 06/17/17 16:14 Docusate Sodium (Colace) 100 mg TID ORAL 05/19/17 13:00 06/17/17 08:59 05/24/17 12:41 Enoxaparin Sodium (Lovenox) 40 mg Q24H SUBQ 05/18/17 09:00 06/17/17 08:59 05/24/17 08:39 Insulin Aspart (NovoLOG) BEFORE MEALS AND HS SUBQ 05/18/17 16:30 06/17/17 16:29 05/24/17 05:58 Lorazepam (Ativan) 1 mg Q4H PRN ORAL For Anxiety 05/17/17 23:00 05/24/17 22:59 05/24/17 14:50 Pantoprazole (Protonix) 40 mg DAILY ORAL 05/19/17 12:00 06/18/17 11:59 05/24/17 08:34 Quetiapine Fumarate (SEROquel) 50 mg BEDTIME ORAL 05/19/17 21:00 06/18/17 20:59 05/23/17 21:02 Tamsulosin HCl (Flomax) 0.4 mg BID ORAL 05/19/17 12:00 06/18/17 11:59 05/24/17 08:34 Zolpidem Tartrate (Ambien) 5 mg HSPRN PRN ORAL Insomnia 05/17/17 23:00 05/24/17 22:59 Odette Robb M.D. May 24, 2017 15:53
--- NOTE | 2017-05-24 16:00 | Progress Note ---
DATE: 05/24/2017 SUBJECTIVE: The patient is calmer. Still has cognitive impairment. Not able to be engaged during the evaluation. Mood is anxious and dysphoric. He is following staff's directions. MENTAL STATUS EXAMINATION: The patient is alert and oriented x2. Mood is dysphoric. Affect is constricted, congruent with mood. Thought process is concrete. Thought content is negative for suicidal . ASSESSMENT: 1. Encephalopathy. 2. Agitation, resolved. 3. Cognitive impairment. PLAN: 1. The patient will be continued on Seroquel 50 mg at bedtime. 2. Ativan p.r.n. 3. We will continue to follow and readjust the medications. Yancy Joshi M.D. DR: Andre JOB#: [id number] CC:
--- NOTE | 2017-05-24 19:40 | General Progress Note ---
Assessment/Plan Assessment/Plan ASSESSMENT AND RECS: 1. Leukopenia 2/2 infection on abx per id service --> likely hemodilutional --> hepatitis and hiv panel have been ordered 2. Mechanical fall. CAT scan of the brain was negative. No evidence of bleed is noted at this time. 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 --> no evidence for infection either, appreciate id recs --> monitor mental status, however has baseline dementia 3. Elevated BUN and creatinine and dehydration. --> improved, potentially med related ==> appreciate renal recs 4. Agitation at baseline. Continue to closely monitor. 5. Anemia, very mild at this time. Continue to monitor Subjective Constitutional: Reports: no symptoms HEENT: Reports: no symptoms Cardiovascular: Reports: no symptoms Gastrointestinal/Abdominal: Reports: no symptoms Genitourinary: Reports: no symptoms 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: Reports: no symptoms Endocrine: Reports: no symptoms Hematologic/Lymphatic: Reports: anemia Allergies: Coded Allergies: No Known Allergies (Unverified , 05/17/17) Subjective nad Objective Last 24 Hour Vital Signs Date Time Temp Pulse Resp B/P (MAP) Pulse Ox O2 Delivery O2 Flow Rate FiO2 05/24/17 18:44 65 133/78 05/24/17 17:23 184/106 05/24/17 16:00 97.4 74 19 184/106 98 Room Air 05/24/17 11:50 97.7 62 20 153/99 100 Room Air 05/24/17 07:58 Room Air 05/24/17 07:57 97.7 84 19 136/88 99 05/24/17 04:00 98.1 54 18 154/75 95 Room Air 05/24/17 00:00 97.9 64 18 145/83 99 05/23/17 20:00 98.2 71 18 150/93 97 Intake and Output 05/23/17 05/24/17 19:00 07:00 Intake Total 1260 ml 725 ml Output Total 400 ml 880 ml Balance 860 ml -155 ml Intake Oral 1160 ml 275 ml IV Total 100 ml 450 ml Output Urine Total 400 ml 880 ml # Voids 3 # Bowel Movements 2 Laboratory Tests 05/24/17 06:40: White Blood Count 3.5L, Red Blood Count 3.90L, Hemoglobin 12.4L, Hematocrit 38.8L, Mean Corpuscular Volume 99, Mean Corpuscular Hemoglobin 31.7H, Mean Corpuscular Hemoglobin Concent 31.9L, Red Cell Distribution Width 13.4, Platelet Count 225, Mean Platelet Volume 7.4, Neutrophils (%) (Auto) 41.9L, Lymphocytes (%) (Auto) 36.1, Monocytes (%) (Auto) 12.6H, Eosinophils (%) (Auto) 7.2H, Basophils (%) (Auto) 2.1H, Sodium Level 147H, Potassium Level 4.2, Chloride Level 104, Carbon Dioxide Level 28, Anion Gap 15, Blood Urea Nitrogen 12, Creatinine 1.0, Estimat Glomerular Filtration Rate , Glucose Level 91, Uric Acid 4.5, Calcium Level 7.9L, Phosphorus Level 2.9, Magnesium Level 2.0, Total Bilirubin 0.4, Aspartate Amino Transf (AST/SGOT) 17, Alanine Aminotransferase ( ALT/SGPT) 22, Alkaline Phosphatase 86, C-Reactive Protein, Quantitative < 0.4, Pro-B-Type Natriuretic Peptide 207H, Total Protein 6.5, Albumin 2.9L, Globulin 3.6, Albumin/Globulin Ratio 0.8L Height (Feet): 6 Height (Inches): 1.00 Weight (Pounds): 180 General Appearance: lethargic EENT: normal ENT inspection Neck: normal inspection Cardiovascular: regular rhythm Respiratory/Chest: no respiratory distress Abdomen: non tender Extremities: non-tender Edema: 1+ Leg (L), 1+ Leg (R) Jabier Goldman May 24, 2017 19:40
[2017-05-24] MEDS ORDERED: Vancomycin 1.5gm/D5W 250ml 250 ML IVPB ONE (21:00)
--- NOTE | 2017-05-24 22:29 | Pulmonology Progress Note ---
Assessment/Plan Problems: (1) Persistent bacteremia (2) Altered mental status (3) Unsteady gait (4) Acute confusion (5) Renal failure (ARF), acute on chronic (6) Encephalopathy Assessment/Plan f/u ID recommendations [facility] cultures pt/ot pt wants to go home soical services aware Subjective ROS Limited/Unobtainable: No Constitutional: Reports: no symptoms HEENT: Repors: no symptoms Respiratory: Reports: no symptoms Allergies: Coded Allergies: No Known Allergies (Unverified , 05/17/17) Objective Last 24 Hour Vital Signs Date Time Temp Pulse Resp B/P (MAP) Pulse Ox O2 Delivery O2 Flow Rate FiO2 05/24/17 20:05 97.2 66 20 155/85 98 Room Air 05/24/17 18:44 65 133/78 05/24/17 17:23 184/106 05/24/17 16:00 97.4 74 19 184/106 98 Room Air 05/24/17 11:50 97.7 62 20 153/99 100 Room Air 05/24/17 07:58 Room Air 05/24/17 07:57 97.7 84 19 136/88 99 05/24/17 04:00 98.1 54 18 154/75 95 Room Air 05/24/17 00:00 97.9 64 18 145/83 99 Intake and Output 05/23/17 05/24/17 18:59 06:59 Intake Total 1210 ml 725 ml Output Total 400 ml 880 ml Balance 810 ml -155 ml Intake Oral 1160 ml 275 ml IV Total 50 ml 450 ml Output Urine Total 400 ml 880 ml # Voids 3 # Bowel Movements 2 General Appearance: cachetic HEENT: normocephalic, atraumatic Respiratory/Chest: chest wall non-tender, lungs clear Cardiovascular: normal peripheral pulses, normal rate Abdomen: normal bowel sounds, soft, non tender Genitourinary: normal external genitalia Skin: no rash 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: pediatric 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 II-XII grossly normal Lymphatic: no neck adenopathy Laboratory Tests 05/24/17 06:40: White Blood Count 3.5L, Red Blood Count 3.90L, Hemoglobin 12.4L, Hematocrit 38.8L, Mean Corpuscular Volume 99, Mean Corpuscular Hemoglobin 31.7H, Mean Corpuscular Hemoglobin Concent 31.9L, Red Cell Distribution Width 13.4, Platelet Count 225, Mean Platelet Volume 7.4, Neutrophils (%) (Auto) 41.9L, Lymphocytes (%) (Auto) 36.1, Monocytes (%) (Auto) 12.6H, Eosinophils (%) (Auto) 7.2H, Basophils (%) (Auto) 2.1H, Sodium Level 147H, Potassium Level 4.2, Chloride Level 104, Carbon Dioxide Level 28, Anion Gap 15, Blood Urea Nitrogen 12, Creatinine 1.0, Estimat Glomerular Filtration Rate , Glucose Level 91, Uric Acid 4.5, Calcium Level 7.9L, Phosphorus Level 2.9, Magnesium Level 2.0, Total Bilirubin 0.4, Aspartate Amino Transf (AST/SGOT) 17, Alanine Aminotransferase ( ALT/SGPT) 22, Alkaline Phosphatase 86, C-Reactive Protein, Quantitative < 0.4, Pro-B-Type Natriuretic Peptide 207H, Total Protein 6.5, Albumin 2.9L, Globulin 3.6, Albumin/Globulin Ratio 0.8L 05/24/17 21:25: Hepatitis A IgM Antibody [Pending], Hepatitis B Surface Antigen [Pending], Hepatitis B Core IgM Antibody [Pending], Hepatitis C Antibody [Pending], HIV (1& 2) Antibody Rapid Negative Current Medications Medications (Trade) Dose Ordered Sig/Chely Route PRN Reason Start Time Stop Time Status Last Admin Dose Admin Acetaminophen (Tylenol) 650 mg Q4H PRN ORAL Mild Pain (Pain Scale 1-3) 05/17/17 23:00 06/16/17 22:59 05/24/17 14:50 Clonidine HCl (Catapres) 0.1 mg Q6H PRN ORAL SBP>160 05/24/17 17:00 06/23/17 16:59 05/24/17 17:23 Dextrose 1,000 ml @ 50 mls/hr Q20H IV 05/19/17 11:45 06/18/17 11:44 05/24/17 12:41 Dextrose (Dextrose 50%) STAT PRN IV Hypoglycemia 05/18/17 16:15 06/17/17 16:14 Docusate Sodium (Colace) 100 mg TID ORAL 05/19/17 13:00 06/17/17 08:59 05/24/17 17:23 Enoxaparin Sodium (Lovenox) 40 mg Q24H SUBQ 05/18/17 09:00 06/17/17 08:59 05/24/17 08:39 Insulin Aspart (NovoLOG) BEFORE MEALS AND HS SUBQ 05/18/17 16:30 06/17/17 16:29 05/24/17 05:58 Lorazepam (Ativan) 1 mg Q4H PRN ORAL For Anxiety 05/17/17 23:00 05/24/17 22:59 05/24/17 14:50 Pantoprazole (Protonix) 40 mg DAILY ORAL 05/19/17 12:00 06/18/17 11:59 05/24/17 08:34 Quetiapine Fumarate (SEROquel) 50 mg BEDTIME ORAL 05/19/17 21:00 06/18/17 20:59 05/24/17 21:26 Tamsulosin HCl (Flomax) 0.4 mg BID ORAL 05/19/17 12:00 06/18/17 11:59 05/24/17 17:23 Vancomycin HCl (Vanco rx to dose) 1 ea DAILY PRN MISC Per rx protocol 05/24/17 16:00 06/23/17 15:59 Vancomycin HCl 1 gm/Dextrose 275 ml @ 183.708 mls/hr Q12HR IVPB 05/25/17 09:00 05/30/17 08:59 Vancomycin HCl/ Dextrose 250 ml @ 125 mls/hr ONCE ONCE IVPB 05/24/17 21:00 05/24/17 22:59 05/24/17 21:26 Zolpidem Tartrate (Ambien) 5 mg HSPRN PRN ORAL Insomnia 05/17/17 23:00 05/24/17 22:59 05/24/17 21:26 AL PAPPAS May 24, 2017 22:29
[2017-05-25 04:00] VITALS: BP 131/80
[2017-05-25] MEDS: NovoLOG Insulin Flexpen SUBQ SCH ×4 (05:22→21:04)
[2017-05-25 08:00] VITALS: BP 138/83
[2017-05-25] MEDS: Docusate 100mg cap ORAL SCH ×3 (08:52→17:05)
[2017-05-25] MEDS: Vancomycin 1gm in D5W 275ml IVPB SCH ×2 (08:52→21:03)
[2017-05-25] MEDS: Enoxaparin 40mg Inj SUBQ SCH (08:54)
[2017-05-25] MEDS: Tamsulosin 0.4mg cap ORAL SCH ×2 (08:58→17:05)
--- NOTE | 2017-05-25 09:06 | Pulmonology Progress Note ---
Assessment/Plan Assessment/Plan ASSESSMENT acute encephalopathy on chronic dementia s/p mechanical fall persistent bacteremia acute renal failure DM PLAN OF CARE MS floor CT head no acute IC pathology ID follows, abx persistent bacteremia r/o endocarditis 2D ECHO today aspiration precautions swallow eval nephro follows creat down to normal per nephro ARF prerenal ( due to Lasix) and renal ( due to Bactrim) IVF avoid nephrotoxic, monitor renal parameters, lytes and replace as needed Flomax HIV negative hep panel pending PT/OT DVT GI prophayxlsi psych follows ; diagnosed with encephalopathy cognitive impairment and initial agitation( resolved) , started on Seroquel and Ativan prn case discussed and evaluated by supervising physician Subjective Allergies: Coded Allergies: No Known Allergies (Unverified , 05/17/17) Subjective ECHO pending for today patient denies chest pain, SOB, palpitations, Objective Last 24 Hour Vital Signs Date Time Temp Pulse Resp B/P (MAP) Pulse Ox O2 Delivery O2 Flow Rate FiO2 05/25/17 08:00 97.9 90 18 138/83 99 05/25/17 04:00 98.9 64 18 131/80 98 05/24/17 20:05 97.2 66 20 155/85 98 Room Air 05/24/17 18:44 65 133/78 05/24/17 17:23 184/106 05/24/17 16:00 97.4 74 19 184/106 98 Room Air 05/24/17 11:50 97.7 62 20 153/99 100 Room Air Intake and Output 05/24/17 05/25/17 19:00 07:00 Intake Total 1000 ml 650 ml Output Total 200 ml 900 ml Balance 800 ml -250 ml Intake Oral 600 ml IV Total 400 ml 650 ml Output Urine Total 200 ml 900 ml # Voids 3 # Bowel Movements 1 General Appearance: no acute distress, other - awake, alert, responsive elderly AA male in NAD HEENT: normocephalic, atraumatic, anicteric, mucous membranes moist Respiratory/Chest: lungs clear, no respiratory distress, no accessory muscle use Cardiovascular: normal peripheral pulses, normal rate, no JVD Abdomen: normal bowel sounds, soft, non tender, non distended Extremities: no edema 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: alert, responsive Laboratory Tests 05/24/17 21:25: Hepatitis A IgM Antibody [Pending], Hepatitis B Surface Antigen [Pending], Hepatitis B Core IgM Antibody [Pending], Hepatitis C Antibody [Pending], HIV (1& 2) Antibody Rapid Negative Current Medications Medications (Trade) Dose Ordered Sig/Chely Route PRN Reason Start Time Stop Time Status Last Admin Dose Admin Acetaminophen (Tylenol) 650 mg Q4H PRN ORAL Mild Pain (Pain Scale 1-3) 05/17/17 23:00 06/16/17 22:59 05/24/17 14:50 Clonidine HCl (Catapres) 0.1 mg Q6H PRN ORAL SBP>160 05/24/17 17:00 06/23/17 16:59 05/24/17 17:23 Dextrose 1,000 ml @ 50 mls/hr Q20H IV 05/19/17 11:45 06/18/17 11:44 05/25/17 05:40 Dextrose (Dextrose 50%) STAT PRN IV Hypoglycemia 05/18/17 16:15 06/17/17 16:14 Docusate Sodium (Colace) 100 mg TID ORAL 05/19/17 13:00 06/17/17 08:59 05/24/17 17:23 Enoxaparin Sodium (Lovenox) 40 mg Q24H SUBQ 05/18/17 09:00 06/17/17 08:59 05/24/17 08:39 Insulin Aspart (NovoLOG) BEFORE MEALS AND HS SUBQ 05/18/17 16:30 06/17/17 16:29 05/24/17 05:58 Pantoprazole (Protonix) 40 mg DAILY ORAL 05/19/17 12:00 06/18/17 11:59 05/24/17 08:34 Quetiapine Fumarate (SEROquel) 50 mg BEDTIME ORAL 05/19/17 21:00 06/18/17 20:59 05/24/17 21:26 Tamsulosin HCl (Flomax) 0.4 mg BID ORAL 05/19/17 12:00 06/18/17 11:59 05/24/17 17:23 Vancomycin HCl (Vanco rx to dose) 1 ea DAILY PRN MISC Per rx protocol 05/24/17 16:00 06/23/17 15:59 Vancomycin HCl 1 gm/Dextrose 275 ml @ 183.708 mls/hr Q12HR IVPB 05/25/17 09:00 05/30/17 08:59 August ([facility]),Eulalia OCONNELL May 25, 2017 09:06
[2017-05-25 12:33] VITALS: BP 135/94
--- NOTE | 2017-05-25 12:48 | Infectious Diseases Prog Note ---
Assessment/Plan Assessment/Plan Abx: IV Vanco 05/20- Assessment: Mechanical fall -CT head: No acute intracranial bleed, mass effect or edema. Mild atrophy of the brain.Nonspecific white matter hypoattenuation probably due to chronic small vessel disease. Persistent Gram positive bacteremia- ?contaminants vs true bacteremia- r/o endocarditis -05/17 05/24 CoNs, 05/20 Bcx 05/24 GPC clusters (ID pending), Bcx 05/24 p Afebrile, no leukocytosis, now mild leukopenia -u/a neg, CXR no acute disease Elevated BUN/Cr- likely dehydration- resolved Agitation on baseline dementia Plan: -Continue IV Vanco #2 given recurrent bacteremia;a waiting ID and repeat Bcx -/ SP IV vanco #3 -f/u Repeat 2 sets of Bcx -requested ID CoNS -f/u TTE to evaluate for vegetations -hold discharge -f/u cx -Monitor CBC/CMP, temperatures -aspiration precautions Thank you for this consultation. Discussed with RN. Subjective Allergies: Coded Allergies: No Known Allergies (Unverified , 05/17/17) Subjective afebrile no leukocytosis, mild leukopenia repeat Bcx growing 05/24 GPC clusters,a waiting ID awaiting repaet Bcx Objective Vital Signs Last 24 Hour Vital Signs Date Time Temp Pulse Resp B/P (MAP) Pulse Ox O2 Delivery O2 Flow Rate FiO2 05/25/17 12:33 98.2 60 20 135/94 98 05/25/17 08:00 97.9 90 18 138/83 99 05/25/17 04:00 98.9 64 18 131/80 98 05/24/17 20:05 97.2 66 20 155/85 98 Room Air 05/24/17 18:44 65 133/78 05/24/17 17:23 184/106 05/24/17 16:00 97.4 74 19 184/106 98 Room Air Height (Feet): 6 Height (Inches): 1.00 Weight (Pounds): 180 Objective General Appearance: no distress HEENT: normocephalic, atraumatic, bilateral eye normal inspection, bilateral eye PERRL, bilateral eye EOMI, normal ENT inspection, normal pharynx, normal voice, moist mucus membranes Neck: normal inspection, full range of motion, supple Respiratory: normal inspection, lungs clear, normal breath sounds, no respiratory distress, no retraction, no wheezing, chest symmetrical Cardiovascular normal inspection, regular rate, rhythm, normal capillary refill Gastrointestinal: normal inspection, non tender, soft, non-distended, no guarding Musculoskeletal: other - full range of motion all ext Skin: normal inspection, normal color, no rash, warm/dry, well hydrated, normal turgor Laboratory Tests Test 05/24/17 21:25 Hepatitis A IgM Antibody Pending Hepatitis B Surface Antigen Pending Hepatitis B Core IgM Antibody Pending Hepatitis C Antibody Pending HIV (1&2) Antibody Rapid Negative (NEGATIVE) Current Medications Medications (Trade) Dose Ordered Sig/Chely Route PRN Reason Start Time Stop Time Status Last Admin Dose Admin Acetaminophen (Tylenol) 650 mg Q4H PRN ORAL Mild Pain (Pain Scale 1-3) 05/17/17 23:00 06/16/17 22:59 05/24/17 14:50 Clonidine HCl (Catapres) 0.1 mg Q6H PRN ORAL SBP>160 05/24/17 17:00 06/23/17 16:59 05/24/17 17:23 Dextrose 1,000 ml @ 50 mls/hr Q20H IV 05/19/17 11:45 06/18/17 11:44 05/25/17 05:40 Dextrose (Dextrose 50%) STAT PRN IV Hypoglycemia 05/18/17 16:15 06/17/17 16:14 Docusate Sodium (Colace) 100 mg TID ORAL 05/19/17 13:00 06/17/17 08:59 05/25/17 08:52 Enoxaparin Sodium (Lovenox) 40 mg Q24H SUBQ 05/18/17 09:00 06/17/17 08:59 05/25/17 08:54 Insulin Aspart (NovoLOG) BEFORE MEALS AND HS SUBQ 05/18/17 16:30 06/17/17 16:29 05/24/17 05:58 Pantoprazole (Protonix) 40 mg DAILY ORAL 05/19/17 12:00 06/18/17 11:59 05/25/17 08:52 Quetiapine Fumarate (SEROquel) 50 mg BEDTIME ORAL 05/19/17 21:00 06/18/17 20:59 05/24/17 21:26 Tamsulosin HCl (Flomax) 0.4 mg BID ORAL 05/19/17 12:00 06/18/17 11:59 05/25/17 08:58 Vancomycin HCl (Vanco rx to dose) 1 ea DAILY PRN MISC Per rx protocol 05/24/17 16:00 06/23/17 15:59 Vancomycin HCl 1 gm/Dextrose 275 ml @ 183.708 mls/hr Q12HR IVPB 05/25/17 09:00 05/30/17 08:59 05/25/17 08:52 Odette Robb M.D. May 25, 2017 12:48
--- NOTE | 2017-05-25 14:45 | Nephrology Progress Note ---
Assessment/Plan Problem List: (1) Renal failure (ARF), acute on chronic (2) Encephalopathy Assessment Renal failure ? Cr now wnl - Prerenal due to diuretics- - Renal due to meds ( bactrim) Unsteady gait Encephalopathy CRP wnl Plan Plan: doubt blood culture is of real value ! change IV fluid- add flomax- Gastric support Monitor renal parameters Urine studies avoid nephrotoxics ? DC planning Subjective ROS Limited/Unobtainable: No Constitutional: Reports: malaise Objective Objective Last 24 Hour Vital Signs Date Time Temp Pulse Resp B/P (MAP) Pulse Ox O2 Delivery O2 Flow Rate FiO2 05/25/17 12:33 98.2 60 20 135/94 98 05/25/17 08:00 97.9 90 18 138/83 99 05/25/17 04:00 98.9 64 18 131/80 98 05/24/17 20:05 97.2 66 20 155/85 98 Room Air 05/24/17 18:44 65 133/78 05/24/17 17:23 184/106 05/24/17 16:00 97.4 74 19 184/106 98 Room Air Intake and Output 05/24/17 05/25/17 19:00 07:00 Intake Total 1000 ml 650 ml Output Total 200 ml 900 ml Balance 800 ml -250 ml Intake Oral 600 ml IV Total 400 ml 650 ml Output Urine Total 200 ml 900 ml # Voids 3 # Bowel Movements 1 Laboratory Tests 05/24/17 21:25: Hepatitis A IgM Antibody [Pending], Hepatitis B Surface Antigen [Pending], Hepatitis B Core IgM Antibody [Pending], Hepatitis C Antibody [Pending], HIV (1& 2) Antibody Rapid Negative Height (Feet): 6 Height (Inches): 1.00 Weight (Pounds): 180 General Appearance: no apparent distress Objective no change ERNST MANZANO May 25, 2017 14:45
[2017-05-25 16:31] VITALS: BP 144/95
--- NOTE | 2017-05-25 19:47 | General Progress Note ---
Assessment/Plan Assessment/Plan ASSESSMENT AND RECS: 1. Leukopenia 2/2 infection on abx per id service --> likely hemodilutional --> hepatitis and hiv panel have been ordered and currently pending 2. Mechanical fall. CAT scan of the brain was negative. No evidence of bleed is noted at this time. 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 --> no evidence for infection either, appreciate id recs --> monitor mental status, however has baseline dementia 3. Elevated BUN and creatinine and dehydration. --> improved, potentially med related ==> appreciate renal recs 4. Agitation at baseline. Continue to closely monitor. 5. Anemia, very mild at this time. Continue to monitor Subjective Cardiovascular: Denies: no symptoms, chest pain, edema, irregular heart rate, lightheadedness, palpitations, syncope, other Respiratory: Denies: no symptoms, cough, orthopnea, shortness of breath, SOB with excertion, SOB at rest, sputum, stridor, wheezing, other Gastrointestinal/Abdominal: Denies: no symptoms, abdomen distended, abdominal pain, black stools, tarry stools, blood in stool, constipated, diarrhea, difficulty swallowing, nausea, poor appetite, poor fluid intake, rectal bleeding , vomiting, other Genitourinary: Denies: no symptoms, burning, discharge, frequency, flank pain, hematuria, incontinence, pain, urgency, other 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: Denies: no symptoms, anxiety, depressed, emotional problems, headache, numbness, paresthesia, pre-existing deficit, seizure, tingling, tremors, weakness, other Endocrine: Denies: no symptoms, excessive sweating, flushing, intolerance to cold, intolerance to heat, increased hunger, increased thirst, increased urine, unexplained weight gain, unexplained weight loss, other Hematologic/Lymphatic: Denies: no symptoms, anemia, easy bleeding, easy bruising, other Allergies: Coded Allergies: No Known Allergies (Unverified , 05/17/17) Subjective nad Objective Last 24 Hour Vital Signs Date Time Temp Pulse Resp B/P (MAP) Pulse Ox O2 Delivery O2 Flow Rate FiO2 05/25/17 16:31 97.4 67 20 144/95 98 05/25/17 12:33 98.2 60 20 135/94 98 05/25/17 08:00 97.9 90 18 138/83 99 05/25/17 04:00 98.9 64 18 131/80 98 05/24/17 20:05 97.2 66 20 155/85 98 Room Air Intake and Output 05/24/17 05/25/17 19:00 07:00 Intake Total 1000 ml 650 ml Output Total 200 ml 900 ml Balance 800 ml -250 ml Intake Oral 600 ml IV Total 400 ml 650 ml Output Urine Total 200 ml 900 ml # Voids 3 # Bowel Movements 1 Laboratory Tests 05/24/17 21:25: Hepatitis A IgM Antibody [Pending], Hepatitis B Surface Antigen [Pending], Hepatitis B Core IgM Antibody [Pending], Hepatitis C Antibody [Pending], HIV (1& 2) Antibody Rapid Negative Height (Feet): 6 Height (Inches): 1.00 Weight (Pounds): 180 General Appearance: alert EENT: TMs normal Neck: supple Cardiovascular: normal rate Respiratory/Chest: lungs clear Abdomen: non tender Extremities: non-tender Edema: 1+ Leg (L), 1+ Leg (R) Edema: trace edema Neurologic: alert Skin: normal pigmentation Jabier Goldman May 25, 2017 19:47
[2017-05-25 20:00] VITALS: BP 140/80
--- NOTE | 2017-05-25 22:34 | General Progress Note ---
Assessment/Plan Status: stable Assessment/Plan encephalopathy agitation -cont current meds -provided ro/st -increased seroquel Subjective Date patient seen: May 25, 2017 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: Reports: anxiety Allergies: Coded Allergies: No Known Allergies (Unverified , 05/17/17) Subjective the pt is calm no acute distress. the pt was more agitated and disorganized. the pt calm down later and was somewhat slow and did not know the date Objective Last 24 Hour Vital Signs Date Time Temp Pulse Resp B/P (MAP) Pulse Ox O2 Delivery O2 Flow Rate FiO2 05/25/17 20:00 98.1 60 20 140/80 98 05/25/17 20:00 98 Room Air 05/25/17 16:31 97.4 67 20 144/95 98 05/25/17 12:33 98.2 60 20 135/94 98 05/25/17 08:00 97.9 90 18 138/83 99 05/25/17 04:00 98.9 64 18 131/80 98 Intake and Output 05/24/17 05/25/17 19:00 07:00 Intake Total 1000 ml 650 ml Output Total 200 ml 900 ml Balance 800 ml -250 ml Intake Oral 600 ml IV Total 400 ml 650 ml Output Urine Total 200 ml 900 ml # Voids 3 # Bowel Movements 1 Height (Feet): 6 Height (Inches): 1.00 Weight (Pounds): 180 General Appearance: no apparent distress, alert Neurologic: alert, oriented x 3, responsive, depressed affect Yancy Joshi M.D. May 25, 2017 22:34
[2017-05-26] VITALS: BP 125/86
[2017-05-26 04:00] VITALS: BP 135/88
[2017-05-26] MEDS: NovoLOG Insulin Flexpen SUBQ SCH ×4 (06:30→20:37)
[2017-05-26 08:00] VITALS: BP 155/90
[2017-05-26 08:06] LABS: HEMATOCRIT 39.4 % (42.0-52.0); MEAN CORPUSCULAR VOLUME 98 FL (80-99); PLATELET COUNT 247 K/UL (150-450); RED BLOOD COUNT 4.04 M/UL (4.70-6.10); RED CELL DISTRIBUTION WIDTH 13.1 % (11.6-14.8); WHITE BLOOD COUNT 3.4 K/UL (4.8-10.8)
[2017-05-26 08:33] LABS: ALANINE AMINOTRANSFERASE 26 U/L (12-78); ALBUMIN 3.1 G/DL (3.4-5.0); ALBUMIN/GLOBULIN RATIO 0.8 (1.0-2.7); ALKALINE PHOSPHATASE 96 U/L (46-116); ANION GAP 4 mmol/L (5-15); ASPARTATE AMINO TRANSFERASE 18 U/L (15-37); BILIRUBIN,TOTAL 0.4 MG/DL (0.2-1.0); BLOOD UREA NITROGEN 14 mg/dL (7-18); CARBON DIOXIDE 30 MMOL/L (21-32); CHLORIDE 107 MMOL/L (98-107); CREATININE 1.2 MG/DL (0.55-1.30); PHOSPHORUS 3.1 MG/DL (2.5-4.9); SODIUM 141 MMOL/L (136-145)
[2017-05-26] MEDS: Vancomycin 1gm in D5W 275ml IVPB SCH ×2 (08:47→20:38)
[2017-05-26] MEDS: Tamsulosin 0.4mg cap ORAL SCH ×2 (08:48→17:01)
[2017-05-26] MEDS: Docusate 100mg cap ORAL SCH ×3 (08:48→17:01)
[2017-05-26] MEDS: Enoxaparin 40mg Inj SUBQ SCH (08:49)
--- NOTE | 2017-05-26 10:56 | Nephrology Progress Note ---
Assessment/Plan Problem List: (1) Renal failure (ARF), acute on chronic (2) Encephalopathy Assessment Renal failure ? Cr now wnl - Prerenal due to diuretics- - Renal due to meds ( bactrim) Unsteady gait Encephalopathy CRP wnl Plan Plan: doubt blood culture is of real value ! change IV fluid- add flomax- Gastric support Monitor renal parameters Urine studies avoid nephrotoxics ? DC planning Subjective ROS Limited/Unobtainable: No Constitutional: Reports: other - feels well Objective Objective Last 24 Hour Vital Signs Date Time Temp Pulse Resp B/P (MAP) Pulse Ox O2 Delivery O2 Flow Rate FiO2 05/26/17 08:00 98.2 85 20 155/90 97 Room Air 05/26/17 04:00 97.9 74 20 135/88 97 Room Air 05/26/17 04:00 97 Room Air 05/26/17 00:00 96 Room Air 05/26/17 00:00 98.1 76 20 125/86 96 Room Air 05/25/17 20:00 98.1 60 20 140/80 98 05/25/17 20:00 98 Room Air 05/25/17 16:31 97.4 67 20 144/95 98 05/25/17 12:33 98.2 60 20 135/94 98 Intake and Output 05/25/17 05/26/17 19:00 07:00 Intake Total 770 ml 1025.000 ml Balance 770 ml 1025.000 ml Intake Oral 720 ml IV Total 50 ml 725.000 ml Other 300 ml # Voids 7 # Bowel Movements 1 Laboratory Tests 05/26/17 07:10: White Blood Count 3.4L, Red Blood Count 4.04L, Hemoglobin 13.0L, Hematocrit 39.4L, Mean Corpuscular Volume 98, Mean Corpuscular Hemoglobin 32.3H, Mean Corpuscular Hemoglobin Concent 33.0, Red Cell Distribution Width 13.1, Platelet Count 247, Mean Platelet Volume 7.2, Neutrophils (%) (Auto) , Lymphocytes (%) ( Auto) , Monocytes (%) (Auto) , Eosinophils (%) (Auto) , Basophils (%) (Auto) , Neutrophils % (Manual) [Pending], Lymphocytes % (Manual) [Pending], Platelet Estimate [Pending], Platelet Morphology [Pending], Erythrocyte Sedimentation Rate 20, Sodium Level 141, Potassium Level 4.0, Chloride Level 107, Carbon Dioxide Level 30, Anion Gap 4L, Blood Urea Nitrogen 14, Creatinine 1.2, Estimat Glomerular Filtration Rate , Glucose Level 97, Uric Acid 5.1, Calcium Level 8.0L , Phosphorus Level 3.1, Magnesium Level 1.9, Total Bilirubin 0.4, Aspartate Amino Transf (AST/SGOT) 18, Alanine Aminotransferase (ALT/SGPT) 26, Alkaline Phosphatase 96, C-Reactive Protein, Quantitative < 0.4, Pro-B-Type Natriuretic Peptide 179H, Total Protein 6.9, Albumin 3.1L, Globulin 3.8, Albumin/Globulin Ratio 0.8L 05/26/17 08:00: Vancomycin Level Trough 18.9H Height (Feet): 6 Height (Inches): 1.00 Weight (Pounds): 180 General Appearance: no apparent distress Objective no change ERNST MANZANO May 26, 2017 10:56
[2017-05-26 12:00] VITALS: BP 150/73
--- NOTE | 2017-05-26 12:33 | Infectious Diseases Prog Note ---
Assessment/Plan Assessment/Plan A: Mechanical fall -CT head: No acute intracranial bleed, mass effect or edema. Mild atrophy of the brain.Nonspecific white matter hypoattenuation probably due to chronic small vessel disease. Persistent Gram positive bacteremia- ?contaminants vs true bacteremia- r/o endocarditis -05/17 05/24 CoNs, 05/20 Bcx 05/24 GPC clusters (ID pending), Bcx 05/24 p -TTE: No vegetations Afebrile no leukocytosis, now mild leukopenia Elevated BUN/Cr- likely dehydration- resolved Agitation on baseline dementia Plan: -Continue IV Vanco # 3 given recurrent bacteremia;a waiting ID and repeat Bcx -/ SP IV vanco # 3 -f/u Repeat 2 sets of Bcx -requested ID CoNS -f/u cx -Monitor CBC/CMP, temperatures -aspiration precautions pt is not ready to discharge in view of recurrent +ve blood Cx and probable uncontrolled bacteremia Subjective Constitutional: Denies: no symptoms, fever, chills, fatigue, anorexia, drenching sweats, other Respiratory: Reports: no symptoms Allergies: Coded Allergies: No Known Allergies (Unverified , 05/17/17) Objective Vital Signs Last 24 Hour Vital Signs Date Time Temp Pulse Resp B/P (MAP) Pulse Ox O2 Delivery O2 Flow Rate FiO2 05/26/17 08:00 98.2 85 20 155/90 97 Room Air 05/26/17 04:00 97.9 74 20 135/88 97 Room Air 05/26/17 04:00 97 Room Air 05/26/17 00:00 96 Room Air 05/26/17 00:00 98.1 76 20 125/86 96 Room Air 05/25/17 20:00 98.1 60 20 140/80 98 05/25/17 20:00 98 Room Air 05/25/17 16:31 97.4 67 20 144/95 98 Height (Feet): 6 Height (Inches): 1.00 Weight (Pounds): 180 Microbiology Date/Time Source Procedure Growth Status 05/24/17 18:15 Blood Blood Culture - Preliminary NO GROWTH AFTER 24 HOURS Resulted 05/24/17 18:00 Blood Blood Culture - Preliminary NO GROWTH AFTER 24 HOURS Resulted Laboratory Tests Test 05/26/17 07:10 05/26/17 08:00 White Blood Count 3.4 K/UL (4.8-10.8) L Red Blood Count 4.04 M/UL (4.70-6.10) L Hemoglobin 13.0 G/DL (14.2-18.0) L Hematocrit 39.4 % (42.0-52.0) L Mean Corpuscular Volume 98 FL (80-99) Mean Corpuscular Hemoglobin 32.3 PG (27.0-31.0) H Mean Corpuscular Hemoglobin Concent 33.0 G/DL (32.0-36.0) Red Cell Distribution Width 13.1 % (11.6-14.8) Platelet Count 247 K/UL (150-450) Mean Platelet Volume 7.2 FL (6.5-10.1) Neutrophils (%) (Auto) % (45.0-75.0) Lymphocytes (%) (Auto) % (20.0-45.0) Monocytes (%) (Auto) % (1.0-10.0) Eosinophils (%) (Auto) % (0.0-3.0) Basophils (%) (Auto) % (0.0-2.0) Neutrophils % (Manual) Pending Lymphocytes % (Manual) Pending Platelet Estimate Pending Platelet Morphology Pending Erythrocyte Sedimentation Rate 20 MM/HR (0-20) Sodium Level 141 MMOL/L (136-145) Potassium Level 4.0 MMOL/L (3.5-5.1) Chloride Level 107 MMOL/L (98-107) Carbon Dioxide Level 30 MMOL/L (21-32) Anion Gap 4 mmol/L (5-15) L Blood Urea Nitrogen 14 mg/dL (7-18) Creatinine 1.2 MG/DL (0.55-1.30) Estimat Glomerular Filtration Rate mL/min (>60) Glucose Level 97 MG/DL (74-106) Uric Acid 5.1 MG/DL (2.6-7.2) Calcium Level 8.0 MG/DL (8.5-10.1) L Phosphorus Level 3.1 MG/DL (2.5-4.9) Magnesium Level 1.9 MG/DL (1.8-2.4) Total Bilirubin 0.4 MG/DL (0.2-1.0) Aspartate Amino Transf (AST/SGOT) 18 U/L (15-37) Alanine Aminotransferase (ALT/SGPT) 26 U/L (12-78) Alkaline Phosphatase 96 U/L (46-116) C-Reactive Protein, Quantitative < 0.4 mg/dL (0.00-0.90) Pro-B-Type Natriuretic Peptide 179 pg/mL (0-125) H Total Protein 6.9 G/DL (6.4-8.2) Albumin 3.1 G/DL (3.4-5.0) L Globulin 3.8 g/dL Albumin/Globulin Ratio 0.8 (1.0-2.7) L Vancomycin Level Trough 18.9 ug/mL (5.0-12.0) H Current Medications Medications (Trade) Dose Ordered Sig/Chely Route PRN Reason Start Time Stop Time Status Last Admin Dose Admin Acetaminophen (Tylenol) 650 mg Q4H PRN ORAL Mild Pain (Pain Scale 1-3) 05/17/17 23:00 06/16/17 22:59 05/24/17 14:50 Clonidine HCl (Catapres) 0.1 mg Q6H PRN ORAL SBP>160 05/24/17 17:00 06/23/17 16:59 05/24/17 17:23 Dextrose 1,000 ml @ 50 mls/hr Q20H IV 05/19/17 11:45 06/18/17 11:44 05/25/17 05:40 Dextrose (Dextrose 50%) STAT PRN IV Hypoglycemia 05/18/17 16:15 06/17/17 16:14 Docusate Sodium (Colace) 100 mg TID ORAL 05/19/17 13:00 06/17/17 08:59 05/26/17 12:26 Enoxaparin Sodium (Lovenox) 40 mg Q24H SUBQ 05/18/17 09:00 06/17/17 08:59 05/26/17 08:49 Insulin Aspart (NovoLOG) BEFORE MEALS AND HS SUBQ 05/18/17 16:30 06/17/17 16:29 05/25/17 21:04 Pantoprazole (Protonix) 40 mg DAILY ORAL 05/19/17 12:00 06/18/17 11:59 05/26/17 08:50 Quetiapine Fumarate (SEROquel) 75 mg BEDTIME ORAL 05/26/17 21:00 06/25/17 20:59 Tamsulosin HCl (Flomax) 0.4 mg BID ORAL 05/19/17 12:00 06/18/17 11:59 05/26/17 08:48 Vancomycin HCl (Vanco rx to dose) 1 ea DAILY PRN MISC Per rx protocol 05/24/17 16:00 06/23/17 15:59 Vancomycin HCl 1 gm/Dextrose 275 ml @ 183.708 mls/hr Q12HR IVPB 05/25/17 09:00 05/30/17 08:59 05/26/17 08:47 LENNOX MARINELLI M.D. May 26, 2017 12:33
--- NOTE | 2017-05-26 13:17 | Pulmonology Progress Note ---
Assessment/Plan Assessment/Plan ASSESSMENT acute encephalopathy on chronic dementia s/p mechanical fall persistent bacteremia acute renal failure DM PLAN OF CARE MS floor CT head no acute IC pathology ID follows, abx persistent bacteremia r/o endocarditis 2D ECHO no evidence of vegetation aspiration precautions swallow eval nephro follows creat down to normal per nephro ARF prerenal ( due to Lasix) and renal ( due to Bactrim) IVF avoid nephrotoxic, monitor renal parameters, lytes and replace as needed Flomax HIV negative hep panel pending PT/OT DVT GI prophayxlsi psych follows ; diagnosed with encephalopathy cognitive impairment and initial agitation( resolved) , started on Seroquel and Ativan prn discussed with ID dr Ivy awaiting sensitivity result, keep in hospital case discussed and evaluated by supervising physician Subjective Allergies: Coded Allergies: No Known Allergies (Unverified , 05/17/17) Subjective patient denies chest pain, SOB, palpitations, Objective Last 24 Hour Vital Signs Date Time Temp Pulse Resp B/P (MAP) Pulse Ox O2 Delivery O2 Flow Rate FiO2 05/26/17 12:00 98.2 80 18 150/73 94 Room Air 05/26/17 08:00 98.2 85 20 155/90 97 Room Air 05/26/17 04:00 97.9 74 20 135/88 97 Room Air 05/26/17 04:00 97 Room Air 05/26/17 00:00 96 Room Air 05/26/17 00:00 98.1 76 20 125/86 96 Room Air 05/25/17 20:00 98.1 60 20 140/80 98 05/25/17 20:00 98 Room Air 05/25/17 16:31 97.4 67 20 144/95 98 Intake and Output 05/25/17 05/26/17 19:00 07:00 Intake Total 770 ml 1025.000 ml Balance 770 ml 1025.000 ml Intake Oral 720 ml IV Total 50 ml 725.000 ml Other 300 ml # Voids 7 # Bowel Movements 1 Objective General Appearance: no acute distress, other - awake, alert, responsive elderly AA male in NAD HEENT: normocephalic, atraumatic, anicteric, mucous membranes moist Respiratory/Chest: lungs clear, no respiratory distress, no accessory muscle use Cardiovascular: normal peripheral pulses, normal rate, no JVD Abdomen: normal bowel sounds, soft, non tender, non distended Extremities: no edema 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: alert, responsive Microbiology Date/Time Source Procedure Growth Status 05/24/17 18:15 Blood Blood Culture - Preliminary NO GROWTH AFTER 24 HOURS Resulted 05/24/17 18:00 Blood Blood Culture - Preliminary NO GROWTH AFTER 24 HOURS Resulted Laboratory Tests 05/26/17 07:10: White Blood Count 3.4L, Red Blood Count 4.04L, Hemoglobin 13.0L, Hematocrit 39.4L, Mean Corpuscular Volume 98, Mean Corpuscular Hemoglobin 32.3H, Mean Corpuscular Hemoglobin Concent 33.0, Red Cell Distribution Width 13.1, Platelet Count 247, Mean Platelet Volume 7.2, Neutrophils (%) (Auto) , Lymphocytes (%) ( Auto) , Monocytes (%) (Auto) , Eosinophils (%) (Auto) , Basophils (%) (Auto) , Neutrophils % (Manual) [Pending], Lymphocytes % (Manual) [Pending], Platelet Estimate [Pending], Platelet Morphology [Pending], Erythrocyte Sedimentation Rate 20, Sodium Level 141, Potassium Level 4.0, Chloride Level 107, Carbon Dioxide Level 30, Anion Gap 4L, Blood Urea Nitrogen 14, Creatinine 1.2, Estimat Glomerular Filtration Rate , Glucose Level 97, Uric Acid 5.1, Calcium Level 8.0L , Phosphorus Level 3.1, Magnesium Level 1.9, Total Bilirubin 0.4, Aspartate Amino Transf (AST/SGOT) 18, Alanine Aminotransferase (ALT/SGPT) 26, Alkaline Phosphatase 96, C-Reactive Protein, Quantitative < 0.4, Pro-B-Type Natriuretic Peptide 179H, Total Protein 6.9, Albumin 3.1L, Globulin 3.8, Albumin/Globulin Ratio 0.8L 05/26/17 08:00: Vancomycin Level Trough 18.9H Current Medications Medications (Trade) Dose Ordered Sig/Cehly Route PRN Reason Start Time Stop Time Status Last Admin Dose Admin Acetaminophen (Tylenol) 650 mg Q4H PRN ORAL Mild Pain (Pain Scale 1-3) 05/17/17 23:00 06/16/17 22:59 05/24/17 14:50 Clonidine HCl (Catapres) 0.1 mg Q6H PRN ORAL SBP>160 05/24/17 17:00 06/23/17 16:59 05/24/17 17:23 Dextrose 1,000 ml @ 50 mls/hr Q20H IV 05/19/17 11:45 06/18/17 11:44 05/25/17 05:40 Dextrose (Dextrose 50%) STAT PRN IV Hypoglycemia 05/18/17 16:15 06/17/17 16:14 Docusate Sodium (Colace) 100 mg TID ORAL 05/19/17 13:00 06/17/17 08:59 05/26/17 12:26 Enoxaparin Sodium (Lovenox) 40 mg Q24H SUBQ 05/18/17 09:00 06/17/17 08:59 05/26/17 08:49 Insulin Aspart (NovoLOG) BEFORE MEALS AND HS SUBQ 05/18/17 16:30 06/17/17 16:29 05/25/17 21:04 Pantoprazole (Protonix) 40 mg DAILY ORAL 05/19/17 12:00 06/18/17 11:59 05/26/17 08:50 Quetiapine Fumarate (SEROquel) 75 mg BEDTIME ORAL 05/26/17 21:00 06/25/17 20:59 Tamsulosin HCl (Flomax) 0.4 mg BID ORAL 05/19/17 12:00 06/18/17 11:59 05/26/17 08:48 Vancomycin HCl (Vanco rx to dose) 1 ea DAILY PRN MISC Per rx protocol 05/24/17 16:00 06/23/17 15:59 Vancomycin HCl 1 gm/Dextrose 275 ml @ 183.708 mls/hr Q12HR IVPB 05/25/17 09:00 05/30/17 08:59 05/26/17 08:47 August (Juanita)Eulalia NP May 26, 2017 13:17
[2017-05-26 15:52] VITALS: BP 137/86
[2017-05-26 20:00] VITALS: BP 145/76
--- NOTE | 2017-05-26 23:09 | General Progress Note ---
Assessment/Plan Status: unchanged Assessment/Plan ASSESSMENT AND RECS: #. Leukopenia 2/2 infection on abx per id service --> likely hemodilutional --> hepatitis and hiv panel both negative #. Mechanical fall. CAT scan of the brain was negative. No evidence of bleed is noted at this time. 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 --> no evidence for infection either, appreciate id recs --> monitor mental status, however has baseline dementia #. Elevated BUN and creatinine and dehydration. --> improved, potentially med related ==> appreciate renal recs #. Agitation at baseline. Continue to closely monitor. #. Anemia, very mild at this time. Continue to monitor Subjective Date patient seen: May 26, 2017 Constitutional: Denies: no symptoms, chills, diaphoresis, fever, malaise, weakness, other HEENT: Denies: no symptoms, eye pain, blurred vision, tearing, double vision, ear pain, ear discharge, nose pain, nose congestion, throat pain, throat swelling, mouth pain, mouth swelling, other Cardiovascular: Denies: no symptoms, chest pain, edema, irregular heart rate, lightheadedness, palpitations, syncope, other Respiratory: Denies: no symptoms, cough, orthopnea, shortness of breath, SOB with excertion, SOB at rest, sputum, stridor, wheezing, other Allergies: Coded Allergies: No Known Allergies (Unverified , 05/17/17) Subjective H/H stable. No abd or chest pain. No major events. Objective Last 24 Hour Vital Signs Date Time Temp Pulse Resp B/P (MAP) Pulse Ox O2 Delivery O2 Flow Rate FiO2 05/26/17 20:00 98.8 68 21 145/76 97 05/26/17 15:52 98.4 63 18 137/86 97 Room Air 05/26/17 14:07 98.2 05/26/17 12:00 98.2 80 18 150/73 94 Room Air 05/26/17 08:00 98.2 85 20 155/90 97 Room Air 05/26/17 04:00 97.9 74 20 135/88 97 Room Air 05/26/17 04:00 97 Room Air 05/26/17 00:00 96 Room Air 05/26/17 00:00 98.1 76 20 125/86 96 Room Air Intake and Output 1/5/18 1/6/18 19:00 07:00 Intake Total 770 ml 1025.000 ml Balance 770 ml 1025.000 ml Intake Oral 720 ml IV Total 50 ml 725.000 ml Other 300 ml # Voids 7 # Bowel Movements 1 Laboratory Tests 05/26/17 07:10: White Blood Count 3.4L, Red Blood Count 4.04L, Hemoglobin 13.0L, Hematocrit 39.4L, Mean Corpuscular Volume 98, Mean Corpuscular Hemoglobin 32.3H, Mean Corpuscular Hemoglobin Concent 33.0, Red Cell Distribution Width 13.1, Platelet Count 247, Mean Platelet Volume 7.2, Neutrophils (%) (Auto) , Lymphocytes (%) ( Auto) , Monocytes (%) (Auto) , Eosinophils (%) (Auto) , Basophils (%) (Auto) , Differential Total Cells Counted 100, Neutrophils % (Manual) 30L, Lymphocytes % (Manual) 44, Monocytes % (Manual) 10, Eosinophils % (Manual) 16H, Basophils % ( Manual) 0, Band Neutrophils 0, Platelet Estimate Adequate, Platelet Morphology Normal, Red Blood Cell Morphology Normal, Erythrocyte Sedimentation Rate 20, Sodium Level 141, Potassium Level 4.0, Chloride Level 107, Carbon Dioxide Level 30, Anion Gap 4L, Blood Urea Nitrogen 14, Creatinine 1.2, Estimat Glomerular Filtration Rate , Glucose Level 97, Uric Acid 5.1, Calcium Level 8.0L, Phosphorus Level 3.1, Magnesium Level 1.9, Total Bilirubin 0.4, Aspartate Amino Transf (AST/SGOT) 18, Alanine Aminotransferase (ALT/SGPT) 26, Alkaline Phosphatase 96, C-Reactive Protein, Quantitative < 0.4, Pro-B-Type Natriuretic Peptide 179H, Total Protein 6.9, Albumin 3.1L, Globulin 3.8, Albumin/Globulin Ratio 0.8L 05/26/17 08:00: Vancomycin Level Trough 18.9H Height (Feet): 6 Height (Inches): 1.00 Weight (Pounds): 180 General Appearance: no apparent distress EENT: normal ENT inspection Neck: normal alignment Respiratory/Chest: lungs clear Abdomen: non tender Jabier Goldman May 26, 2017 23:09
[2017-05-27] VITALS: BP 138/95
[2017-05-27 04:00] VITALS: BP 139/98
[2017-05-27] MEDS: NovoLOG Insulin Flexpen SUBQ SCH ×4 (06:30→21:28)
[2017-05-27 08:00] VITALS: BP 136/75
[2017-05-27] MEDS: Vancomycin 1gm in D5W 275ml IVPB SCH ×2 (08:44→21:24)
[2017-05-27] MEDS: Tamsulosin 0.4mg cap ORAL SCH ×2 (08:44→17:49)
[2017-05-27] MEDS: Docusate 100mg cap ORAL SCH ×3 (08:45→17:52)
[2017-05-27] MEDS: Enoxaparin 40mg Inj SUBQ SCH (08:48)
[2017-05-27 12:00] VITALS: BP 144/93
--- NOTE | 2017-05-27 13:55 | Nephrology Progress Note ---
Assessment/Plan Problem List: (1) Renal failure (ARF), acute on chronic (2) Encephalopathy Assessment Renal failure ? Cr now wnl - Prerenal due to diuretics- - Renal due to meds ( bactrim) Unsteady gait Encephalopathy CRP wnl Plan Plan: doubt blood culture is of real value ! change IV fluid- add flomax- Gastric support Monitor renal parameters Urine studies avoid nephrotoxics ? DC planning Subjective ROS Limited/Unobtainable: No Objective Objective Last 24 Hour Vital Signs Date Time Temp Pulse Resp B/P (MAP) Pulse Ox O2 Delivery O2 Flow Rate FiO2 05/27/17 12:00 98.1 63 18 144/93 98 Room Air 05/27/17 09:44 97.7 05/27/17 08:00 97.9 77 18 136/75 97 Room Air 05/27/17 04:00 97.7 66 20 139/98 98 05/27/17 00:00 97.9 67 21 138/95 97 05/26/17 20:00 98.8 68 21 145/76 97 05/26/17 15:52 98.4 63 18 137/86 97 Room Air Intake and Output 05/26/17 05/27/17 19:00 07:00 Intake Total 1415 ml 617.416 ml Output Total 800 ml 1100 ml Balance 615 ml -482.584 ml Intake Oral 840 ml IV Total 575 ml 617.416 ml Output Urine Total 800 ml 1100 ml # Voids 1 # Bowel Movements 2 1 Height (Feet): 6 Height (Inches): 1.00 Weight (Pounds): 180 General Appearance: no apparent distress Objective no change ERNST MANZANO May 27, 2017 13:55
--- NOTE | 2017-05-27 14:10 | General Progress Note ---
Assessment/Plan Status: stable, progressing Assessment/Plan encephalopathy agitation -cont current meds -provided ro/st -increased seroquel Subjective Date patient seen: May 26, 2017 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: Reports: anxiety Allergies: Coded Allergies: No Known Allergies (Unverified , 05/17/17) Subjective the pt is calm no acute distress. the pt calm later and no agitation Objective Last 24 Hour Vital Signs Date Time Temp Pulse Resp B/P (MAP) Pulse Ox O2 Delivery O2 Flow Rate FiO2 05/27/17 12:00 98.1 63 18 144/93 98 Room Air 05/27/17 09:44 97.7 05/27/17 08:00 97.9 77 18 136/75 97 Room Air 05/27/17 04:00 97.7 66 20 139/98 98 05/27/17 00:00 97.9 67 21 138/95 97 05/26/17 20:00 98.8 68 21 145/76 97 05/26/17 15:52 98.4 63 18 137/86 97 Room Air Intake and Output 05/26/17 05/27/17 19:00 07:00 Intake Total 1415 ml 617.416 ml Output Total 800 ml 1100 ml Balance 615 ml -482.584 ml Intake Oral 840 ml IV Total 575 ml 617.416 ml Output Urine Total 800 ml 1100 ml # Voids 1 # Bowel Movements 2 1 Height (Feet): 6 Height (Inches): 1.00 Weight (Pounds): 180 General Appearance: no apparent distress, alert Neurologic: alert, oriented x 3, responsive, depressed affect Yancy Joshi M.D. May 27, 2017 14:10
--- NOTE | 2017-05-27 14:21 | Pulmonology Progress Note ---
Assessment/Plan Assessment/Plan ASSESSMENT acute encephalopathy on chronic dementia s/p mechanical fall persistent bacteremia acute renal failure DM PLAN OF CARE MS floor CT head no acute IC pathology ID follows, abx persistent bacteremia r/o endocarditis 2D ECHO no evidence of vegetation aspiration precautions swallow eval nephro follows creat down to normal per nephro ARF prerenal ( due to Lasix) and renal ( due to Bactrim) IVF avoid nephrotoxic, monitor renal parameters, lytes and replace as needed Flomax HIV negative hep panel pending PT/OT DVT GI prophayxlsi psych follows ; diagnosed with encephalopathy cognitive impairment and initial agitation( resolved) , started on Seroquel and Ativan prn discussed with ID dr Ivy awaiting sensitivity result, keep in hospital last set of blood cx from 05/24 prel negative probably can be dc tomorrow on 2 wks of abx as will be specified by ID (2 weeks from 05/24) case discussed and evaluated by supervising physician Subjective Allergies: Coded Allergies: No Known Allergies (Unverified , 05/17/17) Subjective patient denies chest pain, SOB, palpitations, last set of blood cx negative prelim Objective Last 24 Hour Vital Signs Date Time Temp Pulse Resp B/P (MAP) Pulse Ox O2 Delivery O2 Flow Rate FiO2 05/27/17 12:00 98.1 63 18 144/93 98 Room Air 05/27/17 09:44 97.7 05/27/17 08:00 97.9 77 18 136/75 97 Room Air 05/27/17 04:00 97.7 66 20 139/98 98 05/27/17 00:00 97.9 67 21 138/95 97 05/26/17 20:00 98.8 68 21 145/76 97 05/26/17 15:52 98.4 63 18 137/86 97 Room Air Intake and Output 05/26/17 05/27/17 19:00 07:00 Intake Total 1415 ml 617.416 ml Output Total 800 ml 1100 ml Balance 615 ml -482.584 ml Intake Oral 840 ml IV Total 575 ml 617.416 ml Output Urine Total 800 ml 1100 ml # Voids 1 # Bowel Movements 2 1 Objective General Appearance: no acute distress, other - awake, alert, responsive elderly AA male in NAD HEENT: normocephalic, atraumatic, anicteric, mucous membranes moist Respiratory/Chest: lungs clear, no respiratory distress, no accessory muscle use Cardiovascular: normal peripheral pulses, normal rate, no JVD Abdomen: normal bowel sounds, soft, non tender, non distended Extremities: no edema 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: alert, responsive Microbiology Date/Time Source Procedure Growth Status 05/24/17 18:15 Blood Blood Culture - Preliminary NO GROWTH AFTER 48 HOURS Resulted 05/24/17 18:00 Blood Blood Culture - Preliminary NO GROWTH AFTER 48 HOURS Resulted Current Medications Medications (Trade) Dose Ordered Sig/Chely Route PRN Reason Start Time Stop Time Status Last Admin Dose Admin Acetaminophen (Tylenol) 650 mg Q4H PRN ORAL Mild Pain (Pain Scale 1-3) 05/17/17 23:00 06/16/17 22:59 05/27/17 08:45 Clonidine HCl (Catapres) 0.1 mg Q6H PRN ORAL SBP>160 05/24/17 17:00 06/23/17 16:59 05/24/17 17:23 Dextrose 1,000 ml @ 50 mls/hr Q20H IV 05/19/17 11:45 06/18/17 11:44 05/25/17 05:40 Dextrose (Dextrose 50%) STAT PRN IV Hypoglycemia 05/18/17 16:15 06/17/17 16:14 Docusate Sodium (Colace) 100 mg TID ORAL 05/19/17 13:00 06/17/17 08:59 05/26/17 17:01 Enoxaparin Sodium (Lovenox) 40 mg Q24H SUBQ 05/18/17 09:00 06/17/17 08:59 05/27/17 08:48 Insulin Aspart (NovoLOG) BEFORE MEALS AND HS SUBQ 05/18/17 16:30 06/17/17 16:29 05/26/17 20:37 Pantoprazole (Protonix) 40 mg DAILY ORAL 05/19/17 12:00 06/18/17 11:59 05/27/17 08:55 Quetiapine Fumarate (SEROquel) 75 mg BEDTIME ORAL 05/26/17 21:00 06/25/17 20:59 05/26/17 20:39 Tamsulosin HCl (Flomax) 0.4 mg BID ORAL 05/19/17 12:00 06/18/17 11:59 05/27/17 08:44 Vancomycin HCl (Vanco rx to dose) 1 ea DAILY PRN MISC Per rx protocol 05/24/17 16:00 06/23/17 15:59 Vancomycin HCl 1 gm/Dextrose 275 ml @ 183.708 mls/hr Q12HR IVPB 05/25/17 09:00 05/30/17 08:59 05/27/17 08:44 August (Juanita)Eulalia NP May 27, 2017 14:21
[2017-05-27] MEDS ORDERED: Lidocaine 1% Plain 30 ml INJ PRN (14:30)
[2017-05-27] MEDS ORDERED: Heparin 2000 units/Ns 1000ml INJ PRN (14:30)
[2017-05-27 16:00] VITALS: BP 153/89
--- NOTE | 2017-05-27 16:19 | Pulmonology Progress Note ---
Assessment/Plan Assessment/Plan ASSESSMENT acute encephalopathy on chronic dementia s/p mechanical fall persistent bacteremia acute renal failure DM PLAN OF CARE MS floor CT head no acute IC pathology ID follows, abx persistent bacteremia r/o endocarditis 2D ECHO no evidence of vegetation aspiration precautions swallow eval nephro follows creat down to normal per nephro ARF prerenal ( due to Lasix) and renal ( due to Bactrim) IVF avoid nephrotoxic, monitor renal parameters, lytes and replace as needed Flomax HIV negative hep panel pending PT/OT DVT GI prophayxlsi psych follows ; diagnosed with encephalopathy cognitive impairment and initial agitation( resolved) , started on Seroquel and Ativan prn discussed with ID dr Ivy awaiting sensitivity result, keep in hospital last set of blood cx from 05/24 prel negative probably can be dc tomorrow on 2 wks of abx as will be specified by ID (2 weeks from 05/24) PICC line in am for IV abx prior to dc case discussed and evaluated by supervising physician Subjective Allergies: Coded Allergies: No Known Allergies (Unverified , 05/17/17) Subjective patient denies chest pain, SOB, palpitations, last set of blood cx negative prelim Objective Last 24 Hour Vital Signs Date Time Temp Pulse Resp B/P (MAP) Pulse Ox O2 Delivery O2 Flow Rate FiO2 05/27/17 16:00 98.2 73 18 153/89 98 Room Air 05/27/17 12:00 98.1 63 18 144/93 98 Room Air 05/27/17 09:44 97.7 05/27/17 08:00 97.9 77 18 136/75 97 Room Air 05/27/17 04:00 97.7 66 20 139/98 98 05/27/17 00:00 97.9 67 21 138/95 97 05/26/17 20:00 98.8 68 21 145/76 97 Intake and Output 05/26/17 05/27/17 19:00 07:00 Intake Total 1415 ml 667.416 ml Output Total 800 ml 1100 ml Balance 615 ml -432.584 ml Intake Oral 840 ml IV Total 575 ml 667.416 ml Output Urine Total 800 ml 1100 ml # Voids 1 # Bowel Movements 2 1 Objective General Appearance: no acute distress, other - awake, alert, responsive elderly AA male in NAD HEENT: normocephalic, atraumatic, anicteric, mucous membranes moist Respiratory/Chest: lungs clear, no respiratory distress, no accessory muscle use Cardiovascular: normal peripheral pulses, normal rate, no JVD Abdomen: normal bowel sounds, soft, non tender, non distended Extremities: no edema 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: alert, responsive Microbiology Date/Time Source Procedure Growth Status 05/24/17 18:15 Blood Blood Culture - Preliminary NO GROWTH AFTER 48 HOURS Resulted 05/24/17 18:00 Blood Blood Culture - Preliminary NO GROWTH AFTER 48 HOURS Resulted Current Medications Medications (Trade) Dose Ordered Sig/Chely Route PRN Reason Start Time Stop Time Status Last Admin Dose Admin Acetaminophen (Tylenol) 650 mg Q4H PRN ORAL Mild Pain (Pain Scale 1-3) 05/17/17 23:00 06/16/17 22:59 05/27/17 08:45 Chlorhexidine Gluconate (Dora-Hex 2%) 1 applic DAILY@2000 TOPIC 05/27/17 20:00 05/28/17 23:59 Clonidine HCl (Catapres) 0.1 mg Q6H PRN ORAL SBP>160 05/24/17 17:00 06/23/17 16:59 05/24/17 17:23 Dextrose 1,000 ml @ 50 mls/hr Q20H IV 05/19/17 11:45 06/18/17 11:44 05/25/17 05:40 Dextrose (Dextrose 50%) STAT PRN IV Hypoglycemia 05/18/17 16:15 06/17/17 16:14 Docusate Sodium (Colace) 100 mg TID ORAL 05/19/17 13:00 06/17/17 08:59 05/26/17 17:01 Enoxaparin Sodium (Lovenox) 40 mg Q24H SUBQ 05/18/17 09:00 06/17/17 08:59 05/27/17 08:48 Heparin Sodium/ Sodium Chloride (Heparin 2000 units/Ns 1000ml premix) 2,000 unit ONCE PRN INJ PICC LINE PLACEMENT 05/27/17 14:30 05/28/17 23:59 Insulin Aspart (NovoLOG) BEFORE MEALS AND HS SUBQ 05/18/17 16:30 06/17/17 16:29 05/26/17 20:37 Lidocaine HCl (Xylocaine 1% 30ml) 30 ml ONCE PRN INJ FOR PICC LINE PLACEMENT 05/27/17 14:30 05/28/17 23:59 Pantoprazole (Protonix) 40 mg DAILY ORAL 05/19/17 12:00 06/18/17 11:59 05/27/17 08:55 Quetiapine Fumarate (SEROquel) 75 mg BEDTIME ORAL 05/26/17 21:00 06/25/17 20:59 05/26/17 20:39 Tamsulosin HCl (Flomax) 0.4 mg BID ORAL 05/19/17 12:00 06/18/17 11:59 05/27/17 08:44 Vancomycin HCl (Vanco rx to dose) 1 ea DAILY PRN MISC Per rx protocol 05/24/17 16:00 06/23/17 15:59 Vancomycin HCl 1 gm/Dextrose 275 ml @ 183.708 mls/hr Q12HR IVPB 05/25/17 09:00 05/30/17 08:59 05/27/17 08:44 August (Juanita)Eulalia NP May 27, 2017 16:19
[2017-05-27 20:00] VITALS: BP 142/80
[2017-05-27] MEDS: Dyna-Hex 2% Top Sol 2oz TOPIC SCH (20:00)
--- NOTE | 2017-05-27 23:23 | General Progress Note ---
Assessment/Plan Assessment/Plan ASSESSMENT AND RECS: #. Leukopenia 2/2 infection on abx per id service --> likely hemodilutional --> hepatitis and hiv panel both negative --> improved #. Mechanical fall. CAT scan of the brain was negative. No evidence of bleed is noted at this time. 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 --> no evidence for infection either, appreciate id recs --> monitor mental status, however has baseline dementia #. Elevated BUN and creatinine and dehydration. --> improved, potentially med related ==> appreciate renal recs #. Agitation at baseline. Continue to closely monitor. #. Anemia, very mild at this time. Continue to monitor Subjective Date patient seen: May 27, 2017 Allergies: Coded Allergies: No Known Allergies (Unverified , 05/17/17) Subjective H/H stable. A little agitated. No night sweats. Objective Last 24 Hour Vital Signs Date Time Temp Pulse Resp B/P (MAP) Pulse Ox O2 Delivery O2 Flow Rate FiO2 05/27/17 20:00 98.0 76 18 142/80 98 05/27/17 16:00 98.2 73 18 153/89 98 Room Air 05/27/17 12:00 98.1 63 18 144/93 98 Room Air 05/27/17 09:44 97.7 05/27/17 08:00 97.9 77 18 136/75 97 Room Air 05/27/17 04:00 97.7 66 20 139/98 98 05/27/17 00:00 97.9 67 21 138/95 97 Intake and Output 05/26/17 05/27/17 19:00 07:00 Intake Total 1415 ml 667.416 ml Output Total 800 ml 1100 ml Balance 615 ml -432.584 ml Intake Oral 840 ml IV Total 575 ml 667.416 ml Output Urine Total 800 ml 1100 ml # Voids 1 # Bowel Movements 2 1 Labs Test 05/26/17 07:10 05/26/17 08:00 White Blood Count 3.4 K/UL (4.8-10.8) Red Blood Count 4.04 M/UL (4.70-6.10) Hemoglobin 13.0 G/DL (14.2-18.0) Hematocrit 39.4 % (42.0-52.0) Mean Corpuscular Volume 98 FL (80-99) Mean Corpuscular Hemoglobin 32.3 PG (27.0-31.0) Mean Corpuscular Hemoglobin Concent 33.0 G/DL (32.0-36.0) Red Cell Distribution Width 13.1 % (11.6-14.8) Platelet Count 247 K/UL (150-450) Mean Platelet Volume 7.2 FL (6.5-10.1) Neutrophils (%) (Auto) % (45.0-75.0) Lymphocytes (%) (Auto) % (20.0-45.0) Monocytes (%) (Auto) % (1.0-10.0) Eosinophils (%) (Auto) % (0.0-3.0) Basophils (%) (Auto) % (0.0-2.0) Differential Total Cells Counted 100 Neutrophils % (Manual) 30 % (45-75) Lymphocytes % (Manual) 44 % (20-45) Monocytes % (Manual) 10 % (1-10) Eosinophils % (Manual) 16 % (0-3) Basophils % (Manual) 0 % (0-2) Band Neutrophils 0 % (0-8) Platelet Estimate Adequate Platelet Morphology Normal Red Blood Cell Morphology Normal Erythrocyte Sedimentation Rate 20 MM/HR (0-20) Sodium Level 141 MMOL/L (136-145) Potassium Level 4.0 MMOL/L (3.5-5.1) Chloride Level 107 MMOL/L (98-107) Carbon Dioxide Level 30 MMOL/L (21-32) Anion Gap 4 mmol/L (5-15) Blood Urea Nitrogen 14 mg/dL (7-18) Creatinine 1.2 MG/DL (0.55-1.30) Estimat Glomerular Filtration Rate mL/min (>60) Glucose Level 97 MG/DL (74-106) Uric Acid 5.1 MG/DL (2.6-7.2) Calcium Level 8.0 MG/DL (8.5-10.1) Phosphorus Level 3.1 MG/DL (2.5-4.9) Magnesium Level 1.9 MG/DL (1.8-2.4) Total Bilirubin 0.4 MG/DL (0.2-1.0) Aspartate Amino Transf (AST/SGOT) 18 U/L (15-37) Alanine Aminotransferase (ALT/SGPT) 26 U/L (12-78) Alkaline Phosphatase 96 U/L (46-116) C-Reactive Protein, Quantitative < 0.4 mg/dL (0.00-0.90) Pro-B-Type Natriuretic Peptide 179 pg/mL (0-125) Total Protein 6.9 G/DL (6.4-8.2) Albumin 3.1 G/DL (3.4-5.0) Globulin 3.8 g/dL Albumin/Globulin Ratio 0.8 (1.0-2.7) Vancomycin Level Trough 18.9 ug/mL (5.0-12.0) Height (Feet): 6 Height (Inches): 1.00 Weight (Pounds): 180 General Appearance: no apparent distress EENT: normal ENT inspection Neck: normal alignment Cardiovascular: normal rate Respiratory/Chest: lungs clear, normal breath sounds Abdomen: soft Jabier Goldman May 27, 2017 23:23
[2017-05-28] VITALS (11 sets, daily range): BP systolic 107–153; BP diastolic 63–101
[2017-05-28] MEDS: NovoLOG Insulin Flexpen SUBQ SCH ×4 (06:30→20:08)
[2017-05-28 07:50] LABS: BASOPHILS % (AUTO) 1.8 % (0.0-2.0); EOSINOPHILS % (AUTO) 8.1 % (0.0-3.0); HEMATOCRIT 37.7 % (42.0-52.0); HEMOGLOBIN 12.6 G/DL (14.2-18.0); LYMPHOCYTES % (AUTO) 31.3 % (20.0-45.0); MEAN CORPUSCULAR VOLUME 98 FL (80-99); MONOCYTES % (AUTO) 10.8 % (1.0-10.0); NEUTROPHILS % (AUTO) 48.1 % (45.0-75.0); PLATELET COUNT 228 K/UL (150-450); RED BLOOD COUNT 3.86 M/UL (4.70-6.10); RED CELL DISTRIBUTION WIDTH 13.2 % (11.6-14.8); WHITE BLOOD COUNT 3.8 K/UL (4.8-10.8)
[2017-05-28 08:14] LABS: ANION GAP 8 mmol/L (5-15); BLOOD UREA NITROGEN 10 mg/dL (7-18); CALCIUM 7.7 MG/DL (8.5-10.1); CARBON DIOXIDE 26 MMOL/L (21-32); CHLORIDE 107 MMOL/L (98-107); POTASSIUM 3.5 MMOL/L (3.5-5.1); SODIUM 141 MMOL/L (136-145)
[2017-05-28] MEDS: Docusate 100mg cap ORAL SCH ×3 (09:20→18:52)
[2017-05-28] MEDS: Tamsulosin 0.4mg cap ORAL SCH ×2 (09:20→18:52)
[2017-05-28] MEDS: Enoxaparin 40mg Inj SUBQ SCH (09:22)
[2017-05-28] MEDS: Vancomycin 1gm in D5W 275ml IVPB SCH ×3 (09:24→21:00)
--- NOTE | 2017-05-28 11:51 | Infectious Diseases Prog Note ---
Assessment/Plan Assessment/Plan Mechanical fall -CT head: No acute intracranial bleed, mass effect or edema. Mild atrophy of the brain.Nonspecific white matter hypoattenuation probably due to chronic small vessel disease. Persistent Gram positive bacteremia- ?contaminants vs true bacteremia- r/o endocarditis -05/17 05/24 S. hominis, 05/20 Bcx 05/24 GPC clusters (ID pending), Bcx 1 NTD x3 -05/17 TTE: No vegetations, tickened MV leaflets Afebrile no leukocytosis, now mild leukopenia Elevated BUN/Cr- likely dehydration- resolved Agitation on baseline dementia Plan: -Continue IV Vanco # 5 given recurrent bacteremia; likely will treat for 7 days from 1st neg BCx 05/24 as long as repeat bcx remains NTD and GPC clusters on is not S. aureus -1/2 SP IV vanco # 3 -f/u Repeat 2 sets of Bcx -awaiting ID GPC clusters 05/20 -f/u cx -Monitor CBC/CMP, temperatures -aspiration precautions pt is not ready to discharge in view of recurrent +ve blood Cx and probable uncontrolled bacteremia Subjective Allergies: Coded Allergies: No Known Allergies (Unverified , 05/17/17) Subjective afebrile no leukocytosis, mild leukopenia awaiting ID GPC clusters 05/20; repaet Bcx 05/24 NTD Objective Vital Signs Last 24 Hour Vital Signs Date Time Temp Pulse Resp B/P (MAP) Pulse Ox O2 Delivery O2 Flow Rate FiO2 05/28/17 08:57 76 19 150/93 97 Room Air 05/28/17 04:00 98.2 77 18 139/96 95 05/28/17 00:00 98.6 74 18 147/101 96 05/27/17 20:00 98.0 76 18 142/80 98 05/27/17 16:00 98.2 73 18 153/89 98 Room Air 05/27/17 12:00 98.1 63 18 144/93 98 Room Air Height (Feet): 6 Height (Inches): 1.00 Weight (Pounds): 180 Objective General Appearance: no distress HEENT: normocephalic, atraumatic, bilateral eye normal inspection, bilateral eye PERRL, bilateral eye EOMI, normal ENT inspection, normal pharynx, normal voice, moist mucus membranes Neck: normal inspection, full range of motion, supple Respiratory: normal inspection, lungs clear, normal breath sounds, no respiratory distress, no retraction, no wheezing, chest symmetrical Cardiovascular normal inspection, regular rate, rhythm, normal capillary refill Gastrointestinal: normal inspection, non tender, soft, non-distended, no guarding Musculoskeletal: other - full range of motion all ext Skin: normal inspection, normal color, no rash, warm/dry, well hydrated, normal turgor Laboratory Tests Test 05/28/17 06:00 White Blood Count 3.8 K/UL (4.8-10.8) L Red Blood Count 3.86 M/UL (4.70-6.10) L Hemoglobin 12.6 G/DL (14.2-18.0) L Hematocrit 37.7 % (42.0-52.0) L Mean Corpuscular Volume 98 FL (80-99) Mean Corpuscular Hemoglobin 32.7 PG (27.0-31.0) H Mean Corpuscular Hemoglobin Concent 33.4 G/DL (32.0-36.0) Red Cell Distribution Width 13.2 % (11.6-14.8) Platelet Count 228 K/UL (150-450) Mean Platelet Volume 8.3 FL (6.5-10.1) Neutrophils (%) (Auto) 48.1 % (45.0-75.0) Lymphocytes (%) (Auto) 31.3 % (20.0-45.0) Monocytes (%) (Auto) 10.8 % (1.0-10.0) H Eosinophils (%) (Auto) 8.1 % (0.0-3.0) H Basophils (%) (Auto) 1.8 % (0.0-2.0) Sodium Level 141 MMOL/L (136-145) Potassium Level 3.5 MMOL/L (3.5-5.1) Chloride Level 107 MMOL/L (98-107) Carbon Dioxide Level 26 MMOL/L (21-32) Anion Gap 8 mmol/L (5-15) Blood Urea Nitrogen 10 mg/dL (7-18) Creatinine 1.0 MG/DL (0.55-1.30) Estimat Glomerular Filtration Rate mL/min (>60) Glucose Level 92 MG/DL (74-106) Calcium Level 7.7 MG/DL (8.5-10.1) L Current Medications Medications (Trade) Dose Ordered Sig/Chely Route PRN Reason Start Time Stop Time Status Last Admin Dose Admin Acetaminophen (Tylenol) 650 mg Q4H PRN ORAL Mild Pain (Pain Scale 1-3) 05/17/17 23:00 06/16/17 22:59 05/27/17 08:45 Chlorhexidine Gluconate (Dora-Hex 2%) 1 applic DAILY@2000 TOPIC 05/27/17 20:00 05/28/17 23:59 Clonidine HCl (Catapres) 0.1 mg Q6H PRN ORAL SBP>160 05/24/17 17:00 06/23/17 16:59 05/24/17 17:23 Dextrose 1,000 ml @ 50 mls/hr Q20H IV 05/19/17 11:45 06/18/17 11:44 05/27/17 17:56 Dextrose (Dextrose 50%) STAT PRN IV Hypoglycemia 05/18/17 16:15 06/17/17 16:14 Docusate Sodium (Colace) 100 mg TID ORAL 05/19/17 13:00 06/17/17 08:59 05/28/17 09:20 Enoxaparin Sodium (Lovenox) 40 mg Q24H SUBQ 05/18/17 09:00 06/17/17 08:59 05/28/17 09:22 Heparin Sodium/ Sodium Chloride (Heparin 2000 units/Ns 1000ml premix) 2,000 unit ONCE PRN INJ PICC LINE PLACEMENT 05/27/17 14:30 05/28/17 23:59 Insulin Aspart (NovoLOG) BEFORE MEALS AND HS SUBQ 05/18/17 16:30 06/17/17 16:29 05/27/17 21:28 Lidocaine HCl (Xylocaine 1% 30ml) 30 ml ONCE PRN INJ FOR PICC LINE PLACEMENT 05/27/17 14:30 05/28/17 23:59 Pantoprazole (Protonix) 40 mg DAILY ORAL 05/19/17 12:00 06/18/17 11:59 05/28/17 09:20 Quetiapine Fumarate (SEROquel) 75 mg BEDTIME ORAL 05/26/17 21:00 06/25/17 20:59 05/27/17 21:24 Tamsulosin HCl (Flomax) 0.4 mg BID ORAL 05/19/17 12:00 06/18/17 11:59 05/28/17 09:20 Vancomycin HCl (Vanco rx to dose) 1 ea DAILY PRN MISC Per rx protocol 05/24/17 16:00 06/23/17 15:59 Vancomycin HCl 1 gm/Dextrose 275 ml @ 183.708 mls/hr Q12HR IVPB 05/25/17 09:00 05/30/17 08:59 05/28/17 09:24 Odette Robb M.D. May 28, 2017 11:51
[2017-05-28] MEDS: Dyna-Hex 2% Top Sol 2oz TOPIC SCH (19:56)
[2017-05-28] MEDS ORDERED: DiphenhydrAMINE 50mg/ml Inj IM ONE (20:45)
[2017-05-28] MEDS ORDERED: LORazepam Inj 2mg/ml 1ml IM ONE (20:45)
[2017-05-28] MEDS ORDERED: Haloperidol Decanoate 50mg Inj IM ONE (20:45)
[2017-05-28] MEDS ORDERED: Haloperidol 5mg/ml Inj IM ONE (21:00)
--- NOTE | 2017-05-28 22:26 | General Progress Note ---
Assessment/Plan Status: unchanged Assessment/Plan ASSESSMENT AND RECS: #. Leukopenia 2/2 infection on abx per id service --> likely hemodilutional --> hepatitis and hiv panel both negative --> improved #. Mechanical fall. CAT scan of the brain was negative. No evidence of bleed is noted at this time. 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 --> no evidence for infection either, appreciate id recs --> monitor mental status, however has baseline dementia #. Elevated BUN and creatinine and dehydration. --> improved, potentially med related ==> appreciate renal recs #. Agitation at baseline. Continue to closely monitor. #. Anemia, very mild at this time. Continue to monitor Subjective Date patient seen: May 28, 2017 Constitutional: Denies: no symptoms, chills, diaphoresis, fever, malaise, weakness, other HEENT: Denies: no symptoms, eye pain, blurred vision, tearing, double vision, ear pain, ear discharge, nose pain, nose congestion, throat pain, throat swelling, mouth pain, mouth swelling, other Cardiovascular: Denies: no symptoms, chest pain, edema, irregular heart rate, lightheadedness, palpitations, syncope, other Respiratory: Denies: no symptoms, cough, orthopnea, shortness of breath, SOB with excertion, SOB at rest, sputum, stridor, wheezing, other Gastrointestinal/Abdominal: Denies: no symptoms, abdomen distended, abdominal pain, black stools, tarry stools, blood in stool, constipated, diarrhea, difficulty swallowing, nausea, poor appetite, poor fluid intake, rectal bleeding , vomiting, other Genitourinary: Denies: no symptoms, burning, discharge, frequency, flank pain, hematuria, incontinence, pain, urgency, other 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: Denies: no symptoms, anxiety, depressed, emotional problems, headache, numbness, paresthesia, pre-existing deficit, seizure, tingling, tremors, weakness, other Endocrine: Denies: no symptoms, excessive sweating, flushing, intolerance to cold, intolerance to heat, increased hunger, increased thirst, increased urine, unexplained weight gain, unexplained weight loss, other Allergies: Coded Allergies: No Known Allergies (Unverified , 05/17/17) Subjective NAD. On antibiotics. Objective Last 24 Hour Vital Signs Date Time Temp Pulse Resp B/P (MAP) Pulse Ox O2 Delivery O2 Flow Rate FiO2 05/28/17 16:00 97.6 74 18 150/91 97 Room Air 05/28/17 12:00 97.3 85 19 150/96 97 Room Air 05/28/17 08:57 76 19 150/93 97 Room Air 05/28/17 04:00 98.2 77 18 139/96 95 05/28/17 00:00 98.6 74 18 147/101 96 Intake and Output 05/27/17 05/28/17 19:00 07:00 Intake Total 1220 ml 1267.416 ml Output Total 1000 ml 1480 ml Balance 220 ml -212.584 ml Intake Oral 720 ml 400 ml IV Total 500 ml 867.416 ml Output Urine Total 1000 ml 1480 ml # Bowel Movements 3 Laboratory Tests 05/28/17 06:00: White Blood Count 3.8L, Red Blood Count 3.86L, Hemoglobin 12.6L, Hematocrit 37.7L, Mean Corpuscular Volume 98, Mean Corpuscular Hemoglobin 32.7H, Mean Corpuscular Hemoglobin Concent 33.4, Red Cell Distribution Width 13.2, Platelet Count 228, Mean Platelet Volume 8.3, Neutrophils (%) (Auto) 48.1, Lymphocytes (% ) (Auto) 31.3, Monocytes (%) (Auto) 10.8H, Eosinophils (%) (Auto) 8.1H, Basophils (%) (Auto) 1.8, Sodium Level 141, Potassium Level 3.5, Chloride Level 107, Carbon Dioxide Level 26, Anion Gap 8, Blood Urea Nitrogen 10, Creatinine 1.0, Estimat Glomerular Filtration Rate , Glucose Level 92, Calcium Level 7.7L Height (Feet): 6 Height (Inches): 1.00 Weight (Pounds): 180 General Appearance: no apparent distress EENT: normal ENT inspection Neck: normal alignment Cardiovascular: normal rate, regular rhythm Respiratory/Chest: lungs clear, normal breath sounds Abdomen: non tender, soft, no organomegaly Jabier Goldman May 28, 2017 22:26
--- NOTE | 2017-05-28 23:11 | Pulmonology Progress Note ---
Assessment/Plan Problems: (1) Acute confusion (2) Unsteady gait (3) Renal failure (ARF), acute on chronic (4) Encephalopathy Assessment/Plan imrpovng id evaluation check electrolytes check cultures dc planning Subjective ROS Limited/Unobtainable: No Constitutional: Reports: no symptoms Allergies: Coded Allergies: No Known Allergies (Unverified , 05/17/17) Objective Last 24 Hour Vital Signs Date Time Temp Pulse Resp B/P (MAP) Pulse Ox O2 Delivery O2 Flow Rate FiO2 05/28/17 23:00 89 20 117/71 95 05/28/17 22:45 97.9 93 151/83 95 05/28/17 16:00 97.6 74 18 150/91 97 Room Air 05/28/17 12:00 97.3 85 19 150/96 97 Room Air 05/28/17 08:57 76 19 150/93 97 Room Air 05/28/17 04:00 98.2 77 18 139/96 95 05/28/17 00:00 98.6 74 18 147/101 96 Intake and Output 05/27/17 05/28/17 19:00 07:00 Intake Total 1220 ml 1267.416 ml Output Total 1000 ml 1480 ml Balance 220 ml -212.584 ml Intake Oral 720 ml 400 ml IV Total 500 ml 867.416 ml Output Urine Total 1000 ml 1480 ml # Bowel Movements 3 Objective General Appearance: no acute distress HEENT: normocephalic, atraumatic Respiratory/Chest: lungs clear, no respiratory distress, no accessory muscle use Cardiovascular: normal rate, no JVD, CL-femoral intact Abdomen: normal bowel sounds, soft, non tender Extremities: no edema 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: alert, responsive Musculoskeletal: normal muscle bulk Laboratory Tests 05/28/17 06:00: White Blood Count 3.8L, Red Blood Count 3.86L, Hemoglobin 12.6L, Hematocrit 37.7L, Mean Corpuscular Volume 98, Mean Corpuscular Hemoglobin 32.7H, Mean Corpuscular Hemoglobin Concent 33.4, Red Cell Distribution Width 13.2, Platelet Count 228, Mean Platelet Volume 8.3, Neutrophils (%) (Auto) 48.1, Lymphocytes (% ) (Auto) 31.3, Monocytes (%) (Auto) 10.8H, Eosinophils (%) (Auto) 8.1H, Basophils (%) (Auto) 1.8, Sodium Level 141, Potassium Level 3.5, Chloride Level 107, Carbon Dioxide Level 26, Anion Gap 8, Blood Urea Nitrogen 10, Creatinine 1.0, Estimat Glomerular Filtration Rate , Glucose Level 92, Calcium Level 7.7L Current Medications Medications (Trade) Dose Ordered Sig/Chely Route PRN Reason Start Time Stop Time Status Last Admin Dose Admin Acetaminophen (Tylenol) 650 mg Q4H PRN ORAL Mild Pain (Pain Scale 1-3) 05/17/17 23:00 06/16/17 22:59 05/27/17 08:45 Chlorhexidine Gluconate (Dora-Hex 2%) 1 applic DAILY@2000 TOPIC 05/27/17 20:00 05/28/17 23:59 Clonidine HCl (Catapres) 0.1 mg Q6H PRN ORAL SBP>160 05/24/17 17:00 06/23/17 16:59 05/24/17 17:23 Dextrose 1,000 ml @ 50 mls/hr Q20H IV 05/19/17 11:45 06/18/17 11:44 05/28/17 18:53 Dextrose (Dextrose 50%) STAT PRN IV Hypoglycemia 05/18/17 16:15 06/17/17 16:14 Docusate Sodium (Colace) 100 mg TID ORAL 05/19/17 13:00 06/17/17 08:59 05/28/17 18:52 Enoxaparin Sodium (Lovenox) 40 mg Q24H SUBQ 05/18/17 09:00 06/17/17 08:59 05/28/17 09:22 Heparin Sodium/ Sodium Chloride (Heparin 2000 units/Ns 1000ml premix) 2,000 unit ONCE PRN INJ PICC LINE PLACEMENT 05/27/17 14:30 05/28/17 23:59 Insulin Aspart (NovoLOG) BEFORE MEALS AND HS SUBQ 05/18/17 16:30 06/17/17 16:29 05/27/17 21:28 Lidocaine HCl (Xylocaine 1% 30ml) 30 ml ONCE PRN INJ FOR PICC LINE PLACEMENT 05/27/17 14:30 05/28/17 23:59 Pantoprazole (Protonix) 40 mg DAILY ORAL 05/19/17 12:00 06/18/17 11:59 05/28/17 09:20 Quetiapine Fumarate (SEROquel) 75 mg BEDTIME ORAL 05/26/17 21:00 06/25/17 20:59 05/27/17 21:24 Tamsulosin HCl (Flomax) 0.4 mg BID ORAL 05/19/17 12:00 06/18/17 11:59 05/28/17 18:52 Vancomycin HCl (Vanco rx to dose) 1 ea DAILY PRN MISC Per rx protocol 05/24/17 16:00 06/23/17 15:59 Vancomycin HCl 1 gm/Dextrose 275 ml @ 183.708 mls/hr Q12HR IVPB 05/25/17 09:00 05/30/17 08:59 05/28/17 09:24 AL PAPPAS May 28, 2017 23:11
[2017-05-29] VITALS (9 sets, daily range): BP systolic 127–145; BP diastolic 79–93
--- NOTE | 2017-05-29 00:10 | Cardiology Report ---
APPROVED REPORT EKG Measurement Heart [id number] Sinus rhythm with premature atrial complexes Prolonged QT Abnormal ECG
[2017-05-29] MEDS: NovoLOG Insulin Flexpen SUBQ SCH ×3 (06:19→16:39)
[2017-05-29] MEDS: Tamsulosin 0.4mg cap ORAL SCH ×2 (09:35→17:14)
[2017-05-29] MEDS: Vancomycin 1gm in D5W 275ml IVPB SCH (09:35)
[2017-05-29] MEDS: Enoxaparin 40mg Inj SUBQ SCH (09:36)
[2017-05-29] MEDS: Docusate 100mg cap ORAL SCH ×3 (09:36→17:14)
--- NOTE | 2017-05-29 09:52 | Nephrology Progress Note ---
Assessment/Plan Problem List: (1) Renal failure (ARF), acute on chronic (2) Encephalopathy Assessment Renal failure ? Cr now wnl - Prerenal due to diuretics- - Renal due to meds ( bactrim) Unsteady gait Encephalopathy CRP wnl Plan Plan: doubt blood culture is of real value ! change IV fluid- add flomax- Gastric support Monitor renal parameters Urine studies avoid nephrotoxics ? DC planning Subjective ROS Limited/Unobtainable: No Constitutional: Reports: malaise Objective Objective Last 24 Hour Vital Signs Date Time Temp Pulse Resp B/P (MAP) Pulse Ox O2 Delivery O2 Flow Rate FiO2 05/29/17 08:01 97.7 94 20 137/83 97 Room Air 05/29/17 03:00 77 18 132/82 05/29/17 01:30 97.9 73 18 135/83 Room Air 05/29/17 00:30 83 20 129/79 05/29/17 00:15 88 18 130/81 05/29/17 00:00 92 18 129/82 95 05/28/17 23:42 97 20 146/74 97 05/28/17 23:28 85 20 107/63 95 05/28/17 23:15 85 18 120/73 95 05/28/17 23:00 89 20 117/71 95 05/28/17 22:45 97.9 93 151/83 95 05/28/17 20:00 98.2 89 20 153/95 97 05/28/17 16:00 97.6 74 18 150/91 97 Room Air 05/28/17 12:00 97.3 85 19 150/96 97 Room Air Intake and Output 05/28/17 05/29/17 19:00 07:00 Intake Total 1120 ml 340 ml Output Total 400 ml 1400 ml Balance 720 ml -1060 ml Intake Oral 720 ml 240 ml IV Total 400 ml 100 ml Output Urine Total 400 ml 1400 ml # Bowel Movements 1 Height (Feet): 6 Height (Inches): 1.00 Weight (Pounds): 180 General Appearance: no apparent distress Cardiovascular: normal rate Respiratory/Chest: lungs clear Abdomen: soft Objective no change ERNST MANZANO May 29, 2017 09:52
--- NOTE | 2017-05-29 12:31 | Infectious Diseases Prog Note ---
Assessment/Plan Assessment/Plan Mechanical fall -CT head: No acute intracranial bleed, mass effect or edema. Mild atrophy of the brain.Nonspecific white matter hypoattenuation probably due to chronic small vessel disease. Persistent Gram positive bacteremia- ?contaminants vs true bacteremia- -05/17 05/24 S. hemolyticus (previousy reported as S.hominis), 05/20 Bcx 05/24 S. heamolyticus, Bcx 05/24 NTD x3 -05/17 TTE: No vegetations, tickened MV leaflets Afebrile no leukocytosis, now mild leukopenia Elevated BUN/Cr- likely dehydration- resolved Agitation on baseline dementia Plan: -Continue IV Vanco # 6 given recurrent bacteremia; will treat for 7 days from 1st neg Bcx on 05/24; end date 05/30/17 -05/22 SP IV vanco # 3 -f/u Repeat 2 sets of Bcx -Monitor CBC/CMP, temperatures -aspiration precautions Subjective Allergies: Coded Allergies: No Known Allergies (Unverified , 05/17/17) Subjective afebrile no leukocytosis, mild leukopenia repaet Bcx 05/24 NTD Objective Vital Signs Last 24 Hour Vital Signs Date Time Temp Pulse Resp B/P (MAP) Pulse Ox O2 Delivery O2 Flow Rate FiO2 05/29/17 11:53 97.7 70 20 135/81 98 Room Air 05/29/17 08:01 97.7 94 20 137/83 97 Room Air 05/29/17 03:00 77 18 132/82 05/29/17 01:30 97.9 73 18 135/83 Room Air 05/29/17 00:30 83 20 129/79 05/29/17 00:15 88 18 130/81 05/29/17 00:00 92 18 129/82 95 05/28/17 23:42 97 20 146/74 97 05/28/17 23:28 85 20 107/63 95 05/28/17 23:15 85 18 120/73 95 05/28/17 23:00 89 20 117/71 95 05/28/17 22:45 97.9 93 151/83 95 05/28/17 20:00 98.2 89 20 153/95 97 05/28/17 16:00 97.6 74 18 150/91 97 Room Air Height (Feet): 6 Height (Inches): 1.00 Weight (Pounds): 180 Objective General Appearance: no distress HEENT: normocephalic, atraumatic, bilateral eye normal inspection, bilateral eye PERRL, bilateral eye EOMI, normal ENT inspection, normal pharynx, normal voice, moist mucus membranes Neck: normal inspection, full range of motion, supple Respiratory: normal inspection, lungs clear, normal breath sounds, no respiratory distress, no retraction, no wheezing, chest symmetrical Cardiovascular normal inspection, regular rate, rhythm, normal capillary refill Gastrointestinal: normal inspection, non tender, soft, non-distended, no guarding Musculoskeletal: other - full range of motion all ext Skin: normal inspection, normal color, no rash, warm/dry, well hydrated, normal turgor Current Medications Medications (Trade) Dose Ordered Sig/Chely Route PRN Reason Start Time Stop Time Status Last Admin Dose Admin Acetaminophen (Tylenol) 650 mg Q4H PRN ORAL Mild Pain (Pain Scale 1-3) 05/17/17 23:00 06/16/17 22:59 05/29/17 09:36 Clonidine HCl (Catapres) 0.1 mg Q6H PRN ORAL SBP>160 05/24/17 17:00 06/23/17 16:59 05/24/17 17:23 Dextrose 1,000 ml @ 50 mls/hr Q20H IV 05/19/17 11:45 06/18/17 11:44 05/29/17 11:50 Dextrose (Dextrose 50%) STAT PRN IV Hypoglycemia 05/18/17 16:15 06/17/17 16:14 Docusate Sodium (Colace) 100 mg TID ORAL 05/19/17 13:00 06/17/17 08:59 05/28/17 18:52 Enoxaparin Sodium (Lovenox) 40 mg Q24H SUBQ 05/18/17 09:00 06/17/17 08:59 05/28/17 09:22 Insulin Aspart (NovoLOG) BEFORE MEALS AND HS SUBQ 05/18/17 16:30 06/17/17 16:29 05/29/17 11:53 Pantoprazole (Protonix) 40 mg DAILY ORAL 05/19/17 12:00 06/18/17 11:59 05/29/17 09:35 Quetiapine Fumarate (SEROquel) 75 mg BEDTIME ORAL 05/26/17 21:00 06/25/17 20:59 05/27/17 21:24 Tamsulosin HCl (Flomax) 0.4 mg BID ORAL 05/19/17 12:00 06/18/17 11:59 05/29/17 09:35 Vancomycin HCl (Vanco rx to dose) 1 ea DAILY PRN MISC Per rx protocol 05/24/17 16:00 06/23/17 15:59 Vancomycin HCl 1 gm/Dextrose 275 ml @ 183.708 mls/hr Q12HR IVPB 05/25/17 09:00 05/30/17 08:59 05/29/17 09:35 Odette Robb M.D. May 29, 2017 12:31
[2017-05-29] MEDS ORDERED: FLOMAX0.4 MG ORAL (14:05)
[2017-05-29] MEDS ORDERED: SEROQUEL25 MG ORAL (14:05)
--- NOTE | 2017-05-29 14:06 | Pulmonology Progress Note ---
Assessment/Plan Problems: (1) Acute confusion (2) Unsteady gait (3) Renal failure (ARF), acute on chronic (4) Encephalopathy Assessment/Plan imrpovng id evaluation check electrolytes check cultures dc planning Subjective ROS Limited/Unobtainable: No Allergies: Coded Allergies: No Known Allergies (Unverified , 05/17/17) Objective Last 24 Hour Vital Signs Date Time Temp Pulse Resp B/P (MAP) Pulse Ox O2 Delivery O2 Flow Rate FiO2 05/29/17 11:53 97.7 70 20 135/81 98 Room Air 05/29/17 08:01 97.7 94 20 137/83 97 Room Air 05/29/17 03:00 77 18 132/82 05/29/17 01:30 97.9 73 18 135/83 Room Air 05/29/17 00:30 83 20 129/79 05/29/17 00:15 88 18 130/81 05/29/17 00:00 92 18 129/82 95 05/28/17 23:42 97 20 146/74 97 05/28/17 23:28 85 20 107/63 95 05/28/17 23:15 85 18 120/73 95 05/28/17 23:00 89 20 117/71 95 05/28/17 22:45 97.9 93 151/83 95 05/28/17 20:00 98.2 89 20 153/95 97 05/28/17 16:00 97.6 74 18 150/91 97 Room Air Intake and Output 05/28/17 05/29/17 19:00 07:00 Intake Total 1120 ml 340 ml Output Total 400 ml 1400 ml Balance 720 ml -1060 ml Intake Oral 720 ml 240 ml IV Total 400 ml 100 ml Output Urine Total 400 ml 1400 ml # Bowel Movements 1 Objective General Appearance: no acute distress HEENT: normocephalic, atraumatic Respiratory/Chest: lungs clear, no respiratory distress, no accessory muscle use Cardiovascular: normal rate, no JVD, CL-femoral intact Abdomen: normal bowel sounds, soft, non tender Extremities: no edema 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: alert, responsive Musculoskeletal: normal muscle bulk Current Medications Medications (Trade) Dose Ordered Sig/Chely Route PRN Reason Start Time Stop Time Status Last Admin Dose Admin Acetaminophen (Tylenol) 650 mg Q4H PRN ORAL Mild Pain (Pain Scale 1-3) 05/17/17 23:00 1/27/18 22:59 05/29/17 09:36 Clonidine HCl (Catapres) 0.1 mg Q6H PRN ORAL SBP>160 05/24/17 17:00 06/23/17 16:59 05/24/17 17:23 Dextrose 1,000 ml @ 50 mls/hr Q20H IV 05/19/17 11:45 06/18/17 11:44 05/29/17 11:50 Dextrose (Dextrose 50%) STAT PRN IV Hypoglycemia 05/18/17 16:15 06/17/17 16:14 Docusate Sodium (Colace) 100 mg TID ORAL 05/19/17 13:00 06/17/17 08:59 05/29/17 13:23 Enoxaparin Sodium (Lovenox) 40 mg Q24H SUBQ 05/18/17 09:00 06/17/17 08:59 05/28/17 09:22 Insulin Aspart (NovoLOG) BEFORE MEALS AND HS SUBQ 05/18/17 16:30 06/17/17 16:29 05/29/17 11:53 Pantoprazole (Protonix) 40 mg DAILY ORAL 05/19/17 12:00 06/18/17 11:59 05/29/17 09:35 Quetiapine Fumarate (SEROquel) 75 mg BEDTIME ORAL 05/26/17 21:00 06/25/17 20:59 05/27/17 21:24 Tamsulosin HCl (Flomax) 0.4 mg BID ORAL 05/19/17 12:00 06/18/17 11:59 05/29/17 09:35 Vancomycin HCl (Vanco rx to dose) 1 ea DAILY PRN MISC Per rx protocol 05/24/17 16:00 06/23/17 15:59 Vancomycin HCl 1 gm/Dextrose 275 ml @ 183.708 mls/hr Q12HR IVPB 05/25/17 09:00 05/30/17 08:59 05/29/17 09:35 AL PAPPAS May 29, 2017 14:06
--- NOTE | 2017-05-29 15:58 | General Progress Note ---
Assessment/Plan Status: stable Assessment/Plan encephalopathy agitation -cont current meds -provided ro/st -increased seroquel Subjective Date patient seen: May 28, 2017 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: Reports: anxiety, depressed, emotional problems Allergies: Coded Allergies: No Known Allergies (Unverified , 05/17/17) Subjective the pt is calm no acute distress. the pt calm later and no agitation Objective Last 24 Hour Vital Signs Date Time Temp Pulse Resp B/P (MAP) Pulse Ox O2 Delivery O2 Flow Rate FiO2 05/29/17 11:53 97.7 70 20 135/81 98 Room Air 05/29/17 08:01 97.7 94 20 137/83 97 Room Air 05/29/17 03:00 77 18 132/82 05/29/17 01:30 97.9 73 18 135/83 Room Air 05/29/17 00:30 83 20 129/79 05/29/17 00:15 88 18 130/81 05/29/17 00:00 92 18 129/82 95 05/28/17 23:42 97 20 146/74 97 05/28/17 23:28 85 20 107/63 95 05/28/17 23:15 85 18 120/73 95 05/28/17 23:00 89 20 117/71 95 05/28/17 22:45 97.9 93 151/83 95 05/28/17 20:00 98.2 89 20 153/95 97 05/28/17 16:00 97.6 74 18 150/91 97 Room Air Intake and Output 05/28/17 05/29/17 19:00 07:00 Intake Total 1120 ml 340 ml Output Total 400 ml 1400 ml Balance 720 ml -1060 ml Intake Oral 720 ml 240 ml IV Total 400 ml 100 ml Output Urine Total 400 ml 1400 ml # Bowel Movements 1 Height (Feet): 6 Height (Inches): 1.00 Weight (Pounds): 180 General Appearance: no apparent distress, alert Neurologic: alert, oriented x 3, responsive, depressed affect Yancy Joshi M.D. May 29, 2017 15:58
[2017-05-29] MEDS ORDERED: Vancomycin 1 GM in D5W 275 ML IVPB ONE (18:00)
[2017-05-29] MEDS ORDERED: Tubing IV Secondary IV ONE (21:29)
--- NOTE | 2017-05-29 22:29 | General Progress Note ---
Assessment/Plan Status: stable Assessment/Plan ASSESSMENT AND RECS: #. Leukopenia 2/2 infection on abx per id service --> likely hemodilutional --> hepatitis and hiv panel both negative --> leukopenia has resolved. --> patient to cont iv antibiotics as outpatient #. Mechanical fall. CAT scan of the brain was negative. No evidence of bleed is noted at this time. 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 --> no evidence for infection either, appreciate id recs --> monitor mental status, however has baseline dementia #. Elevated BUN and creatinine and dehydration. --> improved, potentially med related ==> appreciate renal recs #. Agitation at baseline. Continue to closely monitor. #. Anemia, very mild at this time. Continue to monitor Subjective Date patient seen: May 29, 2017 Constitutional: Denies: no symptoms, chills, diaphoresis, fever, malaise, weakness, other HEENT: Denies: no symptoms, eye pain, blurred vision, tearing, double vision, ear pain, ear discharge, nose pain, nose congestion, throat pain, throat swelling, mouth pain, mouth swelling, other Cardiovascular: Denies: no symptoms, chest pain, edema, irregular heart rate, lightheadedness, palpitations, syncope, other Respiratory: Denies: no symptoms, cough, orthopnea, shortness of breath, SOB with excertion, SOB at rest, sputum, stridor, wheezing, other Gastrointestinal/Abdominal: Denies: no symptoms, abdomen distended, abdominal pain, black stools, tarry stools, blood in stool, constipated, diarrhea, difficulty swallowing, nausea, poor appetite, poor fluid intake, rectal bleeding , vomiting, other Genitourinary: Denies: no symptoms, burning, discharge, frequency, flank pain, hematuria, incontinence, pain, urgency, other Allergies: Coded Allergies: No Known Allergies (Unverified , 05/17/17) Subjective On IV antibiotics. No major events. Pending Discharge. Objective Last 24 Hour Vital Signs Date Time Temp Pulse Resp B/P (MAP) Pulse Ox O2 Delivery O2 Flow Rate FiO2 05/29/17 20:19 97.3 77 20 145/93 99 Room Air 05/29/17 16:01 Room Air 05/29/17 16:00 97.5 93 20 127/79 98 05/29/17 11:53 97.7 70 20 135/81 98 Room Air 05/29/17 08:02 Room Air 05/29/17 08:01 97.7 94 20 137/83 97 Room Air 05/29/17 03:00 77 18 132/82 05/29/17 01:30 97.9 73 18 135/83 Room Air 05/29/17 00:30 83 20 129/79 05/29/17 00:15 88 18 130/81 05/29/17 00:00 92 18 129/82 95 05/28/17 23:42 97 20 146/74 97 05/28/17 23:28 85 20 107/63 95 05/28/17 23:15 85 18 120/73 95 05/28/17 23:00 89 20 117/71 95 05/28/17 22:45 97.9 93 151/83 95 Intake and Output 05/28/17 05/29/17 19:00 07:00 Intake Total 1120 ml 340 ml Output Total 400 ml 1400 ml Balance 720 ml -1060 ml Intake Oral 720 ml 240 ml IV Total 400 ml 100 ml Output Urine Total 400 ml 1400 ml # Bowel Movements 1 Height (Feet): 6 Height (Inches): 1.00 Weight (Pounds): 180 General Appearance: no apparent distress EENT: normal ENT inspection Neck: normal alignment Respiratory/Chest: lungs clear, normal breath sounds Abdomen: non tender, soft, no organomegaly Jabier Goldman May 29, 2017 22:29
--- NOTE | 2017-05-30 09:43 | Progress Note ---
DATE: 05/29/2017 SUBJECTIVE: The patient has calmed down. Last night he received a cocktail shot. The patient was not able to participate in the evaluation and is easily agitated today. The patient appears to be psychotic and stated that someone was trying to "do something to him." During my evaluation, he is calm, still paranoid. MENTAL STATUS EXAMINATION: The patient is alert and oriented times self and place. Mood is neutral. Affect is flat. Congruent mood. Thought process is concrete. Thought content, no suicidal or homicidal ideations. ASSESSMENT: Psychotic disorder. PLAN: 1. We will discontinue the Seroquel. 2. Start the patient on risperidone 2 mg nightly. 3. We will continue Risperdal and provide the patient with supportive therapy and reality orientation. Yancy Joshi M.D. DR: Jaycee JOB#: [id number] CC:
--- NOTE | 2017-06-01 17:23 | Discharge Summary ---
Discharge Summary Hospital Course Date of Admission May 17, 2017 at 22:36 Date of Discharge May 29, 2017 at 21:30 Admitting Diagnosis inability to ambulate HPI Pk Louis is a 76 year old male who was admitted on May 17, 2017 at 22:36 for Inability To Ambulate Hospital Course [id number] Discharge Discharge Disposition Patient was discharged to assisted living' Discharge Diagnoses: Julianne Pabon NP Jun 01, 2017 17:22
--- NOTE | 2017-06-02 03:45 | Discharge Summary 2 SIG ---
DATE OF ADMISSION: 05/17/2017 DATE OF DISCHARGE: 05/29/2017 CONSULTANTS: 1. Jabier Goldman M.D. 2. Yancy Joshi M.D. 3. Odette Robb M.D. 4. Cleveland Boyer M.D. BRIEF HOSPITAL COURSE: The patient is a 76-year-old male with medical history significant for dementia who is long term resident. He came to ED after mechanical fall. Denies loss of consciousness. The patient had been extremely agitated and was trying to get out of stretcher and non-cooperative. Evaluation at ED showed negative head CT. He was sedated with Haldol. EKG was in normal sinus rhythm. Chest x-ray showed cardiomegaly with mild congestion. Creatinine was 1.8. BUN was 19. Initial troponin was negative. He was admitted for evaluation of fall and renal failure. He was seen by psychiatrist and was given Seroquel and Ativan. He was given IV hydration. Creatinine elevation was assessed to be prerenal due to diuretics. He was given Flomax. He was initially observed off antibiotic treatment. However, blood culture showed growth of coagulase-negative Staph. He was given vancomycin. Repeat blood culture again showed growth of coagulase-negative Staph. He had persistent bacteremia. Echocardiogram did not show any evidence of vegetation. Last set of blood culture preliminary was showing negative,however, given recurrent bacteremia, we will treat for seven days from first negative blood culture, which was on 05/24/2017. End of therapy expected on 05/30/2017. He was placed on restraints for patient safety and was also provided a sitter. The patient was given IV vancomycin prior to discharge and the patient was eventually discharged to assisted living. FINAL DIAGNOSES: 1. Acute encephalopathy. 2. Acute kidney injury. 3. Status post mechanical fall. 4. Persistent bacteremia. 5. Diabetes mellitus. 6. Psychotic disorder. 7. Leukopenia, secondary to infection. 8. Agitation. 9. Anemia. DISPOSITION: The patient was discharged to an assisted living. DISCHARGE INSTRUCTIONS: Follow up with PMD in a week. Mirali Zarrabi, M.D. I have been assigned to dictate discharge summary on this account and I was not involved in the patient's management. Julianne Pabon N.P. DR: TACOS JOB#: [id number] CC: [email or web address]
--- NOTE | 2017-06-04 11:08 | Cardiology Report ---
APPROVED REPORT EXAM: Two-dimensional and M-mode echocardiogram with Doppler and color Doppler. INDICATION OTHER M-Mode DIMENSIONS IVSd0.9 (0.7-1.1cm)Aortic Root3.5 (2.0-3.7cm) LVDd3.7 (3.5-5.6cm)Aortic Cusp Exc.1.9 (1.5-2.0cm) PWd1.3 (0.7-1.1cm) IVSs1.5 cm LVDs2.3 (2.5-4.0cm) Normal left ventricular chamber size, systolic function and wall motion. Left ventricular ejection fraction estimated to be 60-65 %. No evidence of left ventricular hypertrophy. No evidence of pericardial effusion. Mild bi-atrial enlargement . Normal left ventricular chamber size . Thickened mitral valve leaflets with normal excursion. Mitral annulus and aortic root calcification. Pulmonic valve not well visualized. Normal tricuspid valve structure. IVC at normal size with physiologic collapse. A color flow and spectral Doppler study was performed and revealed: Mild aortic regurgitation. Mild mitral regurgitation. Normal left ventricular diastolic function Mild tricuspid regurgitation. Tricuspid systolic velocities suggests peak right ventricular systolic pressure of 39mmHg consistent with mild pulmonary hypertension. No Pulmonic regurgitation present.
== END 2017-05-29 21:30 | disposition home or self-care (01) | DRG 682 ==
LOC: EDBD 21:22 → EMR 21:25 → 4E 22:36 → EDBEDREQ 23:06 → 4E 05-18 04:56
DX: N17.9 Acute kidney failure, unspecified (principal); G93.40 Encephalopathy, unspecified; R78.81 Bacteremia; F05 Delirium due to known physiological condition; E11.22 Type 2 diabetes mellitus with diabetic chronic kidney disease; F03.91 Unspecified dementia, unspecified severity, with behavioral disturbance; E86.0 Dehydration; Z78.1 Physical restraint status; R26.81 Unsteadiness on feet; N18.9 Chronic kidney disease, unspecified; Z23 Encounter for immunization; Z91.81 History of falling; F32.89 Other specified depressive episodes; F41.9 Anxiety disorder, unspecified; D64.9 Anemia, unspecified
CPT/HCPCS: 36415; 70450; 71010; 80048; 80053; 80061; 80202; 81003; 82550; 82607; 82962; 82977; 83036; 83605; 83735; 83880; 84100; 84300; 84443; 84484; 84550; 85007; 85025; 85610; 85651; 85730; 86140; 86703; 86705; 86709; 86803; 87040; 87081; 87181; 87340; 89050; 90630; 93005; 93306; 94664; 99285; J1815